=== PATIENT | female | born 1955 | race Caucasian/White ===

== ENCOUNTER 2020-08-18 10:16 | Emergency (ER) | payer OTHER ==
--- OUTSIDE RECORDS SUMMARY | 2020-08-18 11:05 | XMS REPORT | Summary of Care ---
:1955 Author Organization [facility] Address [address] [place] [id number] Care Team Providers Name Role Phone Lulu, Gretchen Trujillo Primary Care Provider Reason for Visit Reason Comments LAB Encounter Details Date Type Department Care Team Description 06/29/2020 Stock Checker Visit [facility] Alda on, Hernan, SALES DEVELOPMENT REPRESENTATIVE [address] [place] [address] [phone] Vitamin D deficiency [facility] Primary Care [address] [phone] Allergies Active Allergy Reactions Severity Noted Date Comments Sertraline (Bulk) Rash 02/26/2020 documented as of this encounter (statuses as of 06/29/2020) Medications Medication Sig Dispensed Refills Start Date End Date Status meloxicam 7.5 mg Take 1 tablet by 30 tablet 0 12/26/2018 Active tabletIndications: mouth daily. Acute pain of left knee PROAIR HFA 90 INHALE 1 TO 2 2 12/07/2018 A ctive mcg/actuation inhaler PUFFS PO Q 4 TO 6 H PRF SHORTNESS OF BREATH OR WHEEZING. FOR RESCUE BREATHING TRELEGY ELLIPTA INHALE 1 PUFF PO 4 01/20/2019 Active 100-62.5-25 mcg DsDv D proMETHazine 25 mg Take 1 tablet by 20 tablet 0 07/16/2019 Active tabletIndications: mouth every 4 Squamous cell lung (four) hours as cancer, right needed for Nausea and Vomiting (N/V). pantoprazole 40 mg EC Take 1 tablet by 90 tablet 0 08/31/2019 Active tabletIndications: mouth daily. Non-small cell cancer of right lung pantoprazole 40 mg EC Take 1 tablet by 90 tablet 0 01/15/2020 Active tabletIndications: mouth daily. Squamous cell lung cancer, right, Gastroesophageal reflux disease, esophagitis presence not specified lidocaine (LIDODERM) 5 Apply 1 Patch to 30 Patch 3 01/18/2020 Active % (700 mg/patch) area(s) daily. patchIndications: Malignant neoplasm of lung, unspecified laterality, unspecified part of lung ondansetron 4 mg Take 1 tablet by 30 tablet 3 01/18/2020 Active disintegrating mouth every 8 tabletIndications: (eight) hours as Malignant neoplasm of needed for Nausea lung, unspecified and Vomiting laterality, (N/V). unspecified part of lung HYDROcodone-acetaminop Take 1 tablet by 60 tablet 0 03/21/2020 Active hen 5-325 mg mouth every 6 tabletIndications: (six) hours as Malignant neoplasm of needed for Pain lung, unspecified (scale 7-10). laterality, unspecified part of lung clonazePAM 2 mg Take 1 tablet by 60 tablet 1 03/21/2020 Active tabletIndications: mouth 2 (two) Generalized anxiety times daily. disorder venlafaxine XR 75 mg Take 1 capsule by 30 capsule 0 04/18/2020 Active 24 hr mouth daily with capsuleIndications: breakfast. 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 Take Severe episode of with Bupropion XL recurrent major 150mg daily depressive disorder, without psychotic features buPROPion XL 150 mg 24 Take 1 tablet by 30 tablet 0 04/18/2020 Active hr tabletIndications: mouth daily. Take Severe episode of with Bupropion XL recurrent major 300mg daily depressive disorder, without psychotic features cyclobenzaprine 5 mg Take 1 tablet by 60 tablet 2 06/29/2020 1 Active tabletIndications: mouth 2 (two) 0 Lumbosacral times daily for spondylosis without 90 days. myelopathy documented as of this encounter (statuses as of 06/29/2020) Active Problems Problem Noted Date Obesity (BMI 30-39.9) 04/08/2019 Non-small cell cancer of right lung 02/17/2019 Other emphysema 02/17/2019 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 Chronic back pain 02/17/2019 documented as of this encounter (statuses as of 06/29/2020) Social History Tobacco Use Types Packs/Day Years Used Date Current Every Day Smoker Smokeless Tobacco: Current User Sex Assigned at Date Recorded Not on file COVID-19 Exposure Response Date Recorded In the last month, have you been in contact with No / Unsure 06/29/2020 12:30 PM CDT someone who was confirmed or suspected to have Coronavirus / COVID-19? documented as of this encounter Last Filed Vital Signs Not on filedocumented in this encounter Nursing Notes Roxanne Tavarez - 06/29/2020 1:00 PM CDT Venipuncture collection performed by clean technique on the right anticubitus. Total of 1 attempts were made. Slight pressure and a bandage/dressing were applied to the site(s). The patient experiencedno complications. The following specimens were processed according to instructions and sent to [facility] laboratories per lab order on : LT BLUE SST 2 RED LAV PPT DK GREEN (LiHep) DK GREEN (SodH) ERAZO DK BLUE (K2) DK BLUE (S) ACD Blood Culture NIPT/NTD documented in this encounter Plan of Treatment Date Type Specialty Care Team Description 07/04/2020 Appointment Radiology Thao Andrews MD [address] [facility] [address] [place] [address] 07/04/2020 Nurse Visit Infusion Therapy 2, [facility] Adult Infusion Nu rse 07/12/2020 Office Visit Oncology Kelley Johnson, DO [address] [place] [address] [phone] 09/28/2020 Office Visit Orthopedic Surgery Hernan Morgan, SALES DEVELOPMENT REPRESENTATIVE [address] [place] [address] [phone] Name Type Priority Associated Diagnoses Date/Ti me BONE SPECIFIC ALK. LAB Routine Vitamin D deficiency 0 06/29/2020 1:02 PM CDT PHOSPHATASE Health Maintenance Due Date Last Done Comments HEPATITIS C (HCV) SCREEN 1955 PNEUMOCOCCAL 0-64 YEARS COMBINED 1962 SERIES (1 of 3 - PCV13) DTaP,Tdap,and Td Vaccines (1 - 1975 Tdap) PAP SMEAR 1977 Breast Cancer Screening 1996 (MAMMOGRAM) COLON CANCER SCREENING ANNUAL 2006 FIT/FOBT COLON CANCER SCREENING FIT DNA 2006 EVERY 3 YEARS COLON CANCER SCREENING 2006 SIGMOIDOSCOPY EVERY 5 YEARS COLONOSCOPY 2006 Colorectal Cancer Screening 2006 Zoster Recombinant Vaccine 2006 (SHINGRIX) (1 of 2) INFLUENZA VACCINE (#1) 2020 08/31/2019 LUNG CANCER SCREEN: Recommended 01/14/2021 01/15/2020, 07/22, for age 55-80 with 30 + pack year 05/17/2019, Ad ditional history history exists Depression Screening 02/24/2021 02/25/2020, 02/25/2020 documented as of this encounter Implants Implanted Type Area Geological Manager Device Shelf Model / Serial Identifier Expiration / Lot Date Kyphon Xpede Bone Cement Bilateral [employer] 1 CX01A / Implanted: Qty: 1 on 05/28/2019 by Albina Lujan MD at [facility] ([facility]) : Back CX01A / [id number] Kyphon Xpede Bone Cement And Mixer Pack Bilateral [employer] [place] CX01B / Implanted: Qty: 1 on 05/28/2019 by Albina Lujan MD at [facility] ([facility]) : Back CX01B / [id number] Kyphon Xpede Bone Cement Bilateral [employer] 1 CX01A / Implanted: Qty: 1 on 05/28/2019 by Albina Lujan MD at [facility] ([facility]) : Back CX01A / [id number] Kyphon Xpede Bone Cement And Mixer Pack Bilateral [employer] [place] CX01B / Implanted: Qty: 1 on 05/28/2019 by Albina Lujan MD at [facility] ([facility]) : Back CX01B / [id number] documented as of this encounter Results Not on filedocumented in this encounter Visit Diagnoses Diagnosis Vitamin D deficiency Unspecified vitamin D deficiency documented in this encounter Insurance Payer Benefit Plan / Subscriber ID Effective Phone Address T e Group Dates [facility] [id number] 2018-[facility] [phone] [address] [employer] [facility] [id number] [place] [address] (Work) [phone] documented as of this encounter
--- OUTSIDE RECORDS SUMMARY | 2020-08-18 11:05 | XMS REPORT | Summary of Care ---
:1955 Author Organization [facility] Address [address] [place] [address] Care Team Providers Name Role Phone Gretchen Lawson Primary Care Provider Encounter Details Date Type Department Care Team Description 06/29/2020 Hospital Encounter [facility] Primary Lukas-Oli on, [facility] Radiol JORDY Castaneda [address] [place] [phone] Allergies Active Allergy Reactions Severity Noted Date Comments Sertraline (Bulk) Rash 02/26/2020 documented as of this encounter (statuses as of 06/30/2020) Medications Medication Sig Dispensed Refills Start Date [...] as of this encounter (statuses as of 06/30/2020) Active Problems Problem Noted Date Obesity (BMI 30-39.9) 04/08/2019 Non-small cell cancer of right lung 02/17/2019 Other emphysema 02/17/2019 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 Chronic back pain 02/17/2019 documented as of this encounter (statuses as of 06/30/2020) Social History Tobacco Use Types Packs/Day Years [...] Signs Not on filedocumented in this encounter Plan of Treatment Date Type Specialty Care Team Description 07/04/2020 Appointment Radiology Thao Andrews MD [address] [facility] [address] [place] [phone] 07/04/2020 Nurse Visit Infusion Therapy 2, [facility] Adult Infusion Nu rse 07/12/2020 Office Visit Oncology Kelley Johnson, [address] [phone] 09/28/2020 Office Visit Orthopedic Surgery Hernan Morgan, JORDY [address] [place] [address] [phone] Name Type Priority Associated Diagnoses Date/Ti me XR SPINE THORACIC 2 [facility] IMAGING Routine Mid back pain 06/2020 1:25 PM CDT XR CERVICAL SPINE 2 [facility] IMAGING Routine Cervicalgia 06/29 1:25 PM CDT Name Type Priority Associated Diagnoses Order S chedule XR SPINE THORACIC 2 [facility] IMAGING Routine Mid back pain ONCE for 1 Occurrences starting 2019 until 06/29/2020 XR CERVICAL SPINE 2 [facility] IMAGING Routine Cervicalgia ONCE for 1 Occurrences starting 2019 until 06/29/2020 Health Maintenance Due Date Last Done Comments [...] of this encounter Implants Implanted Type Area Simulation Engineer Device Shelf Model / Serial Identifier Expiration / Lot Date Kyphon Xpede Bone Cement Bilateral [employer] 1 CX01A / Implanted: Qty: 1 on 05/28/2019 by Albina Lujan MD at [facility] ([facility]) : Back CX01A / [id number] Kyphon Xpede Bone Cement And Mixer Pack Bilateral [employer] [place] CX01B / Implanted: Qty: 1 on 05/28/2019 by Albina Lujan MD at [facility] ([facility]) : Back CX01B / [id number] Kyphon Xpede Bone Cement Bilateral [employer] 1 CX01A / Implanted: Qty: 1 on 05/28/2019 by Albina Lujan MD at [facility] ([facility]) : Back CX01A / [id number] Kyphon Xpede Bone Cement And Mixer Pack Bilateral [employer] [place] CX01B / Implanted: Qty: 1 on 05/28/2019 by Albina Lujan MD at [facility] ([facility]) : Back CX01B / [id number] documented as of this encounter Results Not on filedocumented in this encounter Visit Diagnoses Diagnosis Mid back pain Backache, unspecified Cervicalgia documented in this encounter Insurance Payer Benefit Plan / Subscriber ID Effective Phone Address T ype Group Dates [facility] [id number] 2018-[employer] [phone] [address] [employer] [id number] [place] [address] (Work) [phone] documented as of this encounter
--- OUTSIDE RECORDS SUMMARY | 2020-08-18 11:05 | XMS REPORT | Continuity of Care Document ---
:1955 Author Organization [facility] [employer] Care Team Providers Name Role Phone [facility] Unavailable Un available Problems Problem Status Onset Classification Date Comments Sourc e Date Reported Depressive Active Problem 03/23/2014 NE Prima ry disorder, not Care A ssoc elsewhere classified Anxiety state, Active Problem 03/23/2014 NE P rimary unspecified Care Ass oc Breast Active Diagnosis 03/23/2014 NE Primar y screening Care Assoc Depression Active Diagnosis 03/23/2014 NE Prima ry [facility] Vitamin D Active Diagnosis 03/23/2014 NE Primar y deficiency Care Asso c Bronchitis Active Diagnosis 03/23/2014 NE Prima ry Care Assoc Enthesopathy/te Active Diagnosis 03/23/2014 NE Primary ndinitis/bursit Care Assoc is of unspecified site Pain in joint, Active Diagnosis 03/23/2014 NE P rimary site Care Assoc unspecified Allergic Active Diagnosis 03/23/2014 NE Primar y rhinitis Care Assoc Asthma Active Diagnosis 03/23/2014 [facility] Primar y [facility] Memory loss Active Diagnosis 03/23/2014 NE Prim terrence Care [facility]oc Other abnormal Active Diagnosis 03/23/2014 NE P rimary blood chemistry Care Assoc Encounter for Active Diagnosis 03/23/2014 NE Pr imary long-term Care Assoc (current) use of other medications Tobacco abuse Active Diagnosis 03/23/2014 NE Pr imary Care Assoc Symptomatic Active Diagnosis 03/23/2014 NE Prim terrence menopausal or Care A ssoc female climacteric states Medications Medication Details Route Status Patient Ordering Order Source Instructions Provider Date Flonase 1 spray Nasally Active 50 MCG/ACT Abraham 03/10/ NE in each Nasally twice 2013 Primary nostril a day (bid) Care Assoc Spiriva 1 capsule by mouth Active 18 MCG by Abraham 03/08/ NE HandiHaler mouth once a 2013 Primary day Care Assoc Ergocalciferol 1 capsule by mouth Active 81604 UNIT by Abraham 03/08 / NE mouth once a 2013 Primary month Care Assoc Nasonex 2 sprays Nasally Active 50 MCG/ACT Silvioumgarner NE in each Nasally Once a 2013 Primary nostril day Care Assoc Ergocalciferol 1 capsule by mouth Active 82668 UNIT by Abraham 12/01 / NE mouth every 2013 Primary month Care Assoc Proventil HFA 2 puffs Inhalation Active 108 (90 Base) Abraham WATKINS as needed MCG/ACT Primary Inhalation Care every 4 hrs Assoc prn Ativan 1 tablet by mouth Active 2 MG by mouth Scarletgaremmett NE at three times a Primary bedtime day (tid) as Care needed (prn) Assoc Effexor XR 2 capsule by mouth Active 150 MG by Abraham NE mouth Once a Primary day Care Assoc Flonase 1 spray Nasally Active 50 MCG/DOSE Abraham NE in each Nasally twice Primary nostril a day (bid) Care Assoc Abilify 1 tablet by mouth Active 10 mg by mouth Abraham WATKINS Once a day Primary Care Assoc Allergies, Adverse Reactions, Alerts Substance Category Reaction Severity Reaction Status Date Comments S ource type Reported N.K.D.A. Adverse Info Not Adverse Active NE Reaction Available Reaction 4 Prim terrence Care Assoc Immunizations No Data Provided for This Section Results No Data Provided for This Section Pathology Reports No Data Provided for This Section Diagnostic Reports No Data Provided for This Section Consultation Notes No Data Provided for This Section Discharge Summaries No Data Provided for This Section History and Physicals No Data Provided for This Section Vital Signs Vital Sign Value Date Comments Source Weight 155 03/08/2014 NE Primary [facility] Height 63 03/08/2014 [facility] Temperature Oral (F) 98.1 F 03/08/2014 NE Prim terrence Care [facility]oc Heart Rate 101 03/08/2014 [facility] Diastolic (mm Hg) 79 03/08/2014 [facility] Systolic (mm Hg) 132 03/08/2014 [facility] Encounters Location Location Encounter Encounter Reason Attending ADM DC Stat Source Details Type Number For Provider Date Date Visit [place] Sick Visit [id number] 03/08 03/08 [place] Primary Rt ankle [id number] /2013 Pr imary Care swollen and [id number] [facility], hurting 8f1 Asso c PA x1mth [facility] nasonex not [id number] 03/10 03/10 [place] Primary covered [id number] /2013 Violet mony [facility] [id number] [facility], a48 Assoc [place] nasonex not [id number] 03/10 03/10 [place] Primary covered [id number] Violet sykes [facility] [id number] [facility], 946 Assoc [place] Procedures No Data Provided for This Section Assessment and Plan No Data Provided for This Section Plan of Care No Data Provided for This Section Social History Social History Date Source Social History ElementQualifiersDate Reported 03/08/2014 [facility] Tobacco Use: . Are you a: current smoker, Number of packs per day: 1, Ag e started: March 08, 2014 Do you have pets? . Status: Yes, Type: dog(s), cat(s), bird(s) March 08, 2014 Marital Status: . answer March 08, 2014 Caffeine intake? . Status: Yes, What type: Coffee, Soft Drinks, 1 - 2 cup(s) a day March 08, 2014 Do you exercise? . Answer: No March 08, 2014 Do you drink alcohol? . Status: Yes, Type: Liquor, Socially March 08, 2014 Family History No Data Provided for This Section Advance Directives No Data Provided for This Section Functional Status No Data Provided for This Section
--- OUTSIDE RECORDS SUMMARY | 2020-08-18 11:06 | XMS REPORT | Summary of Care ---
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 PACS/VR/DOSE VITAMIN D, 25-OH (06/29/2020 1:02 PM CDT) Pathologist Sig nature VIT D 25OH 22 (L) 25 - 80 ng/mL [facility] Specimen Blood Narrative Performed At Deficiency: <20 ng/mL [facility] Insufficiency: 20-24 ng/mL Optimal: 25-80 ng/mL Performing Organization Address City/State/Zipcode Phone Number [facility] CLIA: [id number] [place] [address] [place] [address] documented in this encounter Visit Diagnoses Diagnosis Osteoporosis of lumbar spine - Primary Vitamin D deficiency Unspecified vitamin D deficiency Lumbosacral spondylosis without myelopat hy Mid back pain Backache, unspecified Cervicalgia Closed compression fracture of first lum bar vertebra, initial encounter documented in this encounter Insurance Payer Benefit Plan / Subscriber ID Effective Phone Address [employer] Dates HIM [facility] [id number] 2018-Prese [phone] [address] HMO HEALTH CHOICE HEALTH CHOICE nt [phone] [place] [address] (Work) [phone] documented as of this encounter
--- OUTSIDE RECORDS SUMMARY | 2020-08-18 11:06 | XMS REPORT | Summary of Care ---
:1955 Author Organization [facility] Address [address] [place] [address] Care Team Providers Name Role Phone Lulu Gretchen Trujillo Primary Care Provider Reason for Visit Reason Comments Notification Encounter Details Date Type Department Care Team Description 07/01/2020 Telephone [facility] Orthopaedic Ondina , Notification Surgery- [facility] Shi, [facility] 2[address] [facility] 2[address] [place], [place] [address] 2[address]1406 [place], [place] [phone] Allergies Active Allergy Reactions Severity Noted Date [...] Signs Not on filedocumented in this encounter Miscellaneous Notes Telephone Encounter - Denise Brennan LVN - 07/01/2020 2:20 PM CDTLVM low vit D. New rx at pharmacy to be picked up elephone Encounter - Maria Dolores Warner - 07/01/2020 12:28 PM CDTPlease assist with signing off on chart note so Infusion dept can obtain auth for upcoming appointment:07/04 documented in this encounter Plan of Treatment Date Type Specialty Care Team Description 07/04/2020 Appointment Radiology Thao Andrews MD 0[address] [facility] [address] [place] [address] 07/04/2020 Nurse Visit Infusion Therapy 2, [facility] Adult Infusion Nu rse 07/12/2020 Office Visit Oncology Kelley Johnson, DO [address] [place], [place] [phone] 09/28/2020 Office Visit Orthopedic Surgery LukasHernan Dueñas, INSTRUCTIONAL TECHNOLOGY COACH [address] [place] [address] [phone] Health Maintenance Due Date Last Done Comments [...] of this encounter Implants Implanted Type Area Psychodramatist Device Shelf Model / Serial Identifier Expiration / Lot Date Kyphon Xpede Bone Cement Bilateral [employer] [place] 1 CX01A / Implanted: Qty: 1 on 05/28/2019 by Albina Lujan MD at [facility] ([facility]) : Back CX01A / [id number] Kyphon Xpede Bone Cement And Mixer Pack Bilateral [employer] [place] CX01B / Implanted: Qty: 1 on 05/28/2019 by Albina Lujan MD at [facility] ([facility]) : Back CX01B / [id number] Kyphon Xpede Bone Cement Bilateral [employer] [place] 1 CX01A / Implanted: Qty: 1 on 05/28/2019 by Albina Lujan MD at [facility] ([facility]) : Back CX01A / [id number] Kyphon Xpede Bone Cement And Mixer Pack Bilateral [employer] [place] CX01B / Implanted: Qty: 1 on 05/28/2019 by Albina Lujan MD at [facility] ([facility]) : Back CX01B / [id number] documented as of this encounter Results Not on filedocumented in this encounter Insurance Payer Benefit Plan / Subscriber ID Effective Phone Address [employer] Dates HIM [facility] [id number] 2018-Tahir [phone] [address] HMO HEALTH [employer] HEALTH CHOICE [phone] [place] [address] documented as of this encounter
--- OUTSIDE RECORDS SUMMARY | 2020-08-18 11:06 | XMS REPORT | Summary of Care ---
:1955 Author Organization [facility] Address [address] [place] [address] Care Team Providers Name Role Phone Gretchen Lawson Primary Care Provider Reason for Referral (Routine) Status Reason Specialty Diagnoses / Referred By Referred To Procedures Contact Contact New Request Infusion Therapy Diagnoses Vitamin D deficiency Osteoporosis of lumbar spine Closed compression fracture of first lumbar vertebra, initial encounter Lukas-Kunjum Procedures CONSULT/REFERRAL AMB INFUSION THERAPY Preferred location: [place] ([facility] 3rd Floor) on, Shibi, TOOL MAKER BENCH [address] [place] [address] Reason for Visit Reason Comments Follow-up fx. L3 (Routine) Status Reason Specialty Diagnoses / Referred By Referred To Procedures Contact Contact Authorized DENTAL SCHEDULING COORDINATOR-FAMILY / Diagnoses LVM to switch to TeleMed 01/13/2020 @ 1:59pm(SE) 8 month FU Low Back Pain Lukas-Kunjum Lukas-Kunjum Orthopedic Surgery Procedures CONSULT/REFERRAL ORTHOPAEDIC SURGERY [facility] on, Shibi, TOOL MAKER BENCH on, Shibi, TOOL MAKER BENCH [address] [place] [phone] Phone: Fax: Encounter Details Date Type Department Care Team Description 06/29/2020 Office Visit [facility] Lkuas-Kunjumon Osteoporos is of lumbar spine (Primary Dx); Orthopaedic Surgery- , Shibi, FN P Vitamin D deficiency; [place] [address] [facility] Lumbosacral spondylosis with out myelopathy; Primary Care Brittney arcos [place] Mid back pain; [address], [place], [place] Cer neryalgia; [address] [address] Closed compression fracture of first lum bar vertebra, [place] [address] [phone] Allergies Active Allergy Reactions Severity Noted Date [...] and bending. Current medications for pain are De Soto 7.5/325 mg and Mobic which has not been e ffective. Patient has history of non-small cell lung cancer since 2017 and completed chemotherapy and radiation, she is not receiving infusions of Opdivo. She reports she has an appointment with her new oncologist Dr. Low Darden ([phone]) on 02/17/19. 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 No results found for: [id number] No components found for: A1C Constitutional: No [...] is noted at this site. MRI: 12/20/2017: [facility]: Cervical, Thoracic, Lumbar: IMPRESSION: Cervical - Mild cervical spine degenerative changes without other suspicious acute process. Thoracic - No acute process with chronic appearing findings as discussed. Lumbar - Predominantly chronic appearing lumbar spine findings as discussed. Slight retropulsion of bony fragments at L1 is slightly more pronounced than on the prior MRI. 09/10/2017: [facility]: Lumbar: IMPRESSION: Acute compression fracture [...] 07/04/2020 Appointment Radiology Thao Andrews MD 2240 [facility] [address] [place] [phone] 07/04/2020 Nurse Visit Infusion Therapy 2, [facility] Adult Infusion Nu rse 07/12/2020 Office Visit Oncology Kelley Johnson, [address] [place], [place] [phone] 09/28/2020 Office Visit Orthopedic Surgery Hernan Morgan FNP 2[address] [place] [address] [phone] Name Type Priority Associated Diagnoses Date/Ti me [...] of this encounter Implants Implanted Type Area Stock Letterer Device Shelf Model / Serial Identifier Expiration / Lot Date Kyphon Xpede Bone Cement Bilateral [employer] [place] 1 CX01A / Implanted: Qty: 1 on 05/28/2019 by Albina Lujan MD at [facility] ([facility]) : Back CX01A / [id number] Kyphon Xpede Bone Cement And Mixer Pack Bilateral [employer] [place] CX01B / Implanted: Qty: 1 on 05/28/2019 by Albina Lujan MD at [facility] ([facility]) : Back CX01B / [id number] Kyphon Xpede Bone Cement Bilateral [employer] [place] 1 CX01A / Implanted: Qty: 1 on 05/28/2019 by Albina Lujan MD at [facility] ([facility]) : Back CX01A / [id number] Kyphon Xpede Bone Cement And Mixer Pack Bilateral [employer] [place] CX01B / Implanted: Qty: 1 on 05/28/2019 by Albina Lujan MD at [facility] ([facility]) : Back CX01B / [id number] documented as of this encounter Procedures Procedure [...] spine were obtained. COMPARISON: None Procedure Note [facility], Radiant Results Inft User - 2019 [...] overlies t he right ventricle. Procedure Note [facility], Radiant Results Inft User - 2019 [...] overlies the right ventricle. Performing Organization Address City/[facility]/Zipcode Phone Number PACS/VR/DOSE VITAMIN D, 25-OH (06/29/2020 1:02 PM CDT) Pathologist Sig nature VIT D 25OH 22 (L) 25 - 80 ng/mL [facility] Specimen Blood Narrative Performed At Deficiency: <20 ng/mL [facility] Insufficiency: 20-24 ng/mL Optimal: 25-80 ng/mL Performing Organization Address City/State/Zipcode Phone Number [facility] CLIA: [id number] [place] [address] [place] [address] documented in this encounter Visit Diagnoses Diagnosis Osteoporosis of lumbar spine - Primary Vitamin D deficiency Unspecified vitamin D deficiency Lumbosacral spondylosis without myelopat hy Mid back pain Backache, unspecified Cervicalgia Closed compression fracture of first lum bar vertebra, initial encounter documented in this encounter Insurance Payer Benefit Plan / Subscriber ID Effective Phone Address [employer] Dates HIM [facility] [id number] 2018-Prese [phone] HMO HEALTH CHOICE HEALTH CHOICE nt [phone] [place] [address] (Work) [phone] documented as of this encounter
--- OUTSIDE RECORDS SUMMARY | 2020-08-18 11:07 | XMS REPORT | Summary of Care ---
:1955 Author Organization [facility] Address [address] [place] [address] Care Team Providers Name Role Phone Lulu, Gretchennorris Trujillo Primary Care Provider Reason for Visit MRI/CAT Scan (Routine) Status Reason Specialty Diagnoses / Referred By Referred To Procedures Contact Contact Closed Diagnostic Diagnoses Malignant neoplasm of lung, unspecified laterality, unspecified part of lung Darryl, Radiology Procedures CT THORAX W CONTRAST MD Kofi [address] [place] [address] Patric [address] [place] [address] Encounter Details Date Type Department Care Team Description 07/04/2020 Hospital Encounter [facility] Computed Bernie Andrews, Arrived Tom[facility] [facility] [address] [place] [phone] [facility] [address] [place] [phone] Allergies Active Allergy Reactions Severity Noted Date Comments Sertraline (Bulk) Rash 02/26/2020 documented as of this encounter (statuses as of 07/05/2020) Medications Medication Sig Dispensed Refills Start Date [...] as of this encounter (statuses as of 07/05/2020) Active Problems Problem Noted Date Obesity (BMI 30-39.9) 04/08/2019 Non-small cell cancer of right lung 02/17/2019 Other emphysema 02/17/2019 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 documented as of this encounter Last Filed Vital Signs Not on filedocumented in this encounter Plan of Treatment Date Type Specialty Care Team Description 07/12/2020 Nurse Visit Infusion Therapy 3, [facility] Adult Infusion Nu rse 07/12/2020 Office Visit Oncology Kelley Johnson, DO [address] [place] [phone] 09/28/2020 Office Visit Orthopedic Surgery Hernan Morgan, [employer] [address] [place] [address] [phone] Health Maintenance Due Date Last Done Comments [...] of this encounter Implants Implanted Type Area Oyster Cultivator Device Shelf Model / Serial Identifier Expiration / Lot Date Kyphon Xpede Bone Cement Bilateral [employer] [place] 1 CX01A / Implanted: Qty: 1 on 05/28/2019 by Albina Lujan MD at [facility] ([facility]) : Back CX01A / [id number] Kyphon Xpede Bone Cement And Mixer Pack Bilateral [employer] [place] CX01B / Implanted: Qty: 1 on 05/28/2019 by Albina Lujan MD at [facility] ([facility]) : Back CX01B / [id number] Kyphon Xpede Bone Cement Bilateral [employer] [place] 1 CX01A / Implanted: Qty: 1 on 05/28/2019 by Albina Lujan MD at [facility] ([facility]) : Back CX01A / [id number] Kyphon Xpede Bone Cement And Mixer Pack Bilateral [employer] [place] CX01B / Implanted: Qty: 1 on 05/28/2019 by Albina Lujan MD at [facility] ([facility]) : Back CX01B / [id number] documented as of this encounter Procedures Procedure Name Priority Date/Time Associated Diagnosis Comme nts CT THORAX W CONTRAST Routine 07/04/2020 1:10 PM Malignant vincenzo plasm of CDT lung, unspecified laterality, unspecified part of lung Procedure Note - [facility], Radia nt Results Inft User - 07/04/2020 4:27 PM CDT PROCEDURE: CT ANGIO CHEST WITH CONTRAST - PE PROTOCOL CLINICAL INDICATION: NSCLC s urveillance COMPARISON: 01/15/2020. DOSE: 223.8 mGy-cm TECHNIQUE AND FINDINGS: A lical CT scan was performed and reconstructed using 1.25 mm slice thicknes s from the lung bases through the apices after the uncomplicated administra tion of 100 cc of intravenous Omnipaque contrast. Sagittal and coron al reconstructions, and axial maximum intensity projections were generated a nd reviewed to further define anatomy and possible pathology. (DFOV = 40 cm) FINDINGS: LOWER NECK/THYROID: Right hy poattenuating thyroid nodule measures up to 5 mm. Left IJ central venous c atheter tip terminates in the H junction. LUNGS: Fibrotic changes of t he right infrahilar bronchovascular soft tissues is again seen with o pacification extending to the right major fissure and right lower lobe with associated architectural distortion and volume loss, likely related to post radiation changes. Right lower lobe subsegmental atelectasis is noted. Scattered pulmonary nodules are again seen in our described below: 2 mm left upper lobe nodule, stable (2:64). 3 mm right upper lobe nodule , stable (2:87). 4 mm left upper lobe calcifi ed granuloma, stable (2:142). 3 mm left lower lobe nodule, stable (2:177). 3 mm right lower lobe pleura l-based nodule, stable (2:222). PLEURA: No pleural effusion or pneumothorax. CENTRAL AIRWAY: Mild tractio n bronchiectasis in the right lower lobe is unchanged from prior study. Right lower lobe bronchial wall thickening is likely related to posttreatm ent change. MEDIASTINUM: No mediastinal lymphadenopathy. Normal cardiac morphology. No pericardial effusion. AORTA AND GREAT VESSELS: The visualized portions of the aorta are normal in caliber. BONES AND SOFT TISSUES: Mult iple thoracic spine compression deformities involving the T6 vertebral b ashlie with 70% height loss and mild spinal stenosis, T10 and T12 verteb ral body with 90% height loss with mild spinal canal stenosis, unchanged fr om prior imaging. Remote left second, third, and fifth rib fractures. VISUALIZED UPPER ABDOMEN: Un remarkable. IMPRESSION 1. Right lower lobe archite ct distortion, and hilar bronchovascular thickening, and mild bronchi ectasis with associated right lower lobe volume loss likely related to post radiation changes. 2. Stable pulmonary nodules . No new pulmonary nodules are appreciated. 3. Multilevel thoracic spin e compression deformities more prominent at T10 and T12 with mild spinal can al stenosis. 4. Remote left second, thir d, and fifth rib fractures. Preliminary Report Dictated by Resident: Lavon Vizcaino documented in this encounter Results Not on filedocumented in this encounter Administered Medications Medication Order MAR Action Action Date Dose Rate Site iohexol (OMNIPAQUE 350 BULK-100 Given 07/04/2020 1:05 PM CDT 0. 23 mL mL) injection 0.23 mL 0.23 mL (rounded from 0.2286 mL = 80 mg), Intravenous, ONCE, 1 dose, 07/04/20 at 1315, Routine documented in this encounter Insurance Payer Benefit Plan / Subscriber ID Effective Phone Address T e Group Dates [facility] [id number] 2018-Tahir [phone] [address] [employer] [facility] [employer] HEALTH CHOICE [phone] [place] [address] (Work) [phone] documented as of this encounter
--- OUTSIDE RECORDS SUMMARY | 2020-08-18 11:07 | XMS REPORT | Summary of Care ---
:1955 Author Organization [facility] Address [address] [place] [address] Care Team Providers Name Role Phone Gretchen Lawson Primary Care Provider Reason for Visit Reason Comments Infusion Therapy (Routine) Status Reason Specialty Diagnoses / Referred By Referred To Procedures Contact Contact Closed Infusion Therapy Diagnoses Vitamin D deficiency Osteoporosis of lumbar spine Closed compression fracture of first lumbar vertebra, initial encounter Ondina Procedures CONSULT/REFERRAL AMB INFUSION THERAPY Preferred location: [place] ([facility] 3rd Floor) [address] [address] Encounter Details Date Type Department Care Team Description 07/04/2020 Nurse Visit [facility] Infusion Kelley Johnson, DO [address] [place] [address] Osteoporosis of lumbar Therapy- [place] Hernan [address] [address] [phone] spine (Primary Dx) [facility] Clinics 2, [facility] Adult Infusion Nurse [address], [address]rd [place] [address] Allergies Active Allergy Reactions Severity Noted Date Comments Sertraline (Bulk) Rash 02/26/2020 documented as of this encounter (statuses as of 07/04/2020) Medications Medication Sig Dispensed Refills Start Date [...] as of this encounter (statuses as of 07/04/2020) Active Problems Problem Noted Date Obesity (BMI 30-39.9) 04/08/2019 Non-small cell cancer of right lung 02/17/2019 Other emphysema 02/17/2019 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 Chronic back pain 02/17/2019 documented as of this encounter (statuses as of 07/04/2020) Social History Tobacco Use Types Packs/Day Years [...] Sign Reading Time Taken Comments Blood Pressure 154/68 07/04/2020 1:57 PM CDT Pulse 93 07/04/2020 1:57 PM CDT Temperature 36.8 C (98.3 F) 07/04/2020 1:57 PM CDT Respiratory Rate 18 07/04/2020 1:57 PM CDT Oxygen Saturation 97% 07/04/2020 1:57 PM CDT Inhaled Oxygen Concentration - - Weight 78.7 kg (173 lb 8 oz) 07/04/2020 1:57 PM CDT Height - - Body Mass Index 46.9 06/29/2020 12:31 PM CDT documented in this encounter Progress Notes Malgorzata Stephenson RN - 07/04/2020 2:00 PM CDTPt arrived for reclast today but noted to have had CT with contrast just prior to arriving. [facility] 1 [facility] for kidney protection. Pt agreeable to plan and wants appointment on same-day as her oncology appointment next week. Pt reports port-a-cath that has not hadmaintenance since last June. Will get port flush next visit with Reclast. Sharyn zhou MA - 07/04/2020 2:00 PM CDTAbeba Perez is a 64 year old female Vitals performed and BP elevated. Documented and reported to RN. Level of pain 7 reported to RN. documented in this encounter Plan of Treatment Date Type Specialty Care Team Description 07/12/2020 Nurse Visit Infusion Therapy 3, [facility] Adult Infusion Nu rse 07/12/2020 Office Visit Oncology Kelley Johnson, [address] [phone] 09/28/2020 Office Visit Orthopedic Surgery Hernan Morgan, JORDY [address] [place] [address] [phone] Health Maintenance Due Date Last Done Comments [...] of this encounter Implants Implanted Type Area Lead Producer Device Shelf Model / Serial Identifier Expiration / Lot Date Kyphon Xpede Bone Cement Bilateral [employer] [place] 1 CX01A / Implanted: Qty: 1 on 05/28/2019 by Albina Lujan MD at [facility] ([facility]) : Back CX01A / [id number] Kyphon Xpede Bone Cement And Mixer Pack Bilateral [employer] [place] CX01B / Implanted: Qty: 1 on 05/28/2019 by Albina Lujan MD at [facility] ([facility]) : Back CX01B / [id number] Kyphon Xpede Bone Cement Bilateral [employer] [place] 1 CX01A / Implanted: Qty: 1 on 05/28/2019 by Albina Lujan MD at [facility] ([facility]) : Back CX01A / [id number] Kyphon Xpede Bone Cement And Mixer Pack Bilateral [employer] [place] CX01B / Implanted: Qty: 1 on 05/28/2019 by Albina Lujan MD at [facility] ([facility]) : Back CX01B / [id number] documented as of this encounter Results Not on filedocumented in this encounter Visit Diagnoses Diagnosis Osteoporosis of lumbar spine - Primary documented in this encounter Insurance Payer Benefit Plan / Subscriber ID Effective Phone Address T ype Group Dates [facility] [id number] 2018-Tahir [phone] [employer] HEALTH CHOICE [phone] [place] [address] (Work) [phone] documented as of this encounter
--- OUTSIDE RECORDS SUMMARY | 2020-08-18 11:07 | XMS REPORT | Summary of Care ---
:1955 Author Organization [facility] Address [address] [place] [address] Care Team Providers Name Role Phone Gretchen Lawson Primary Care Provider Reason for Referral (Routine) Status Reason Specialty Diagnoses / Referred By Referred To Procedures Contact Contact Closed Infusion Therapy Diagnoses Vitamin D deficiency Osteoporosis of lumbar spine Closed compression fracture of first lumbar vertebra, initial encounter Ondnia Procedures CONSULT/REFERRAL AMB INFUSION THERAPY Preferred location: [place] ([facility] 3rd Floor) , Shibi, CLINICAL REGISTERED NURSE [address] [place] [address] Reason for Visit Reason Comments Follow-up fx. L3 (Routine) Status Reason Specialty Diagnoses / Referred By Referred To Procedures Contact Contact Authorized EVENT STAFF MEMBER-FAMILY / Diagnoses LVM to switch to TeleMed 01/13/2020 @ 1:59pm(SE) 8 month FU Low Back Pain Lukas-Kunjum Lukas-Kunjum Orthopedic Surgery Procedures CONSULT/REFERRAL ORTHOPAEDIC SURGERY TELEHE[facility] ALTERNATIVE on, Shibi, CLINICAL REGISTERED NURSE on, Shibi, CLINICAL REGISTERED NURSE [address] [address] Phone: Fax: Encounter Details Date Type Department Care Team Description 06/29/2020 Office Visit [facility] Lukas-Gallito Osteoporos is of lumbar spine (Primary Dx); Orthopaedic Surgery- , Shibi, FN P Vitamin D deficiency; [address] Lumbosacral spondylosis with out myelopathy; Primary Care Brittney arcos [facility] Mid back pain; [address], [place], [place] Cer neryalgia; [address] [address] Closed compression fracture of first lum bar vertebra, [place] [address] [phone] Allergies Active Allergy Reactions Severity Noted Date Comments Sertraline (Bulk) Rash 02/26/2020 documented as of this encounter (statuses as of 07/07/2020) Medications Medication Sig Dispensed Refills Start Date [...] as of this encounter (statuses as of 07/07/2020) Active Problems Problem Noted Date Obesity (BMI 30-39.9) 04/08/2019 Non-small cell cancer of right lung 02/17/2019 Other emphysema 02/17/2019 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 Current medications for pain are [place] 7.5/325 mg and Mobic which has not been e ffective. Patient has history of non-small cell lung cancer since 2017 and completed chemotherapy and radiation, she is not receiving infusions of Opdivo. She reports she has an appointment with her new oncologist Dr. Low Darden ([phone]) on 02/17/19. 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 No results found for: [id number] No components found for: A1C Constitutional: No [...] is noted at this site. MRI: 12/20/2017: [facility]: Cervical, Thoracic, Lumbar: IMPRESSION: Cervical - Mild cervical spine degenerative changes without other suspicious acute process. Thoracic - No acute process with chronic appearing findings as discussed. Lumbar - Predominantly chronic appearing lumbar spine findings as discussed. Slight retropulsion of bony fragments at L1 is slightly more pronounced than on the prior MRI. 09/10/2017: [facility]: Lumbar: IMPRESSION: Acute compression fracture of T [...] blood work. JORDY Sierra. Orthopedics surgery. Denise Gibbs LVN - 06/29/2020 12:45 PM CDTFollow up back/bone health. 04/29 english documented in this encounter Plan of Treatment Date Type Specialty Care Team Description 07/12/2020 Nurse Visit Infusion Therapy 3, [facility] Adult Infusion Nu rse 07/12/2020 Office Visit Oncology Kelley Johnson, [address] [phone] 09/28/2020 Office Visit Orthopedic Surgery Hernan Morgan FNP [address] [place] [address] [phone] Health Maintenance Due Date Last Done Comments [...] of 2) INFLUENZA VACCINE (#1) 2020 08/31/2019 Depression Screening 02/24/2021 02/25/2020, 02/25/2020 LUNG CANCER SCREEN: Recommended 07/04/2021 07/04/2020, 12/20, for age 55-80 with 30 + pack year 2019, Ad ditional history history exists documented as of this encounter Implants Implanted Type Area Wirer Street Light Device Shelf Model / Serial Identifier Expiration / Lot Date Kyphon Xpede Bone Cement Bilateral [employer] [place] 1 CX01A / Implanted: Qty: 1 on 05/28/2019 by Albina Lujan MD at [facility] ([facility]) : Back CX01A / [id number] Kyphon Xpede Bone Cement And Mixer Pack Bilateral [employer] [place] CX01B / Implanted: Qty: 1 on 05/28/2019 by Albina Lujan MD at [facility] ([facility]) : Back CX01B / [id number] Kyphon Xpede Bone Cement Bilateral [employer] [place] 1 CX01A / Implanted: Qty: 1 on 05/28/2019 by Albina Lujan MD at [facility] ([facility]) : Back CX01A / [id number] Kyphon Xpede Bone Cement And Mixer Pack Bilateral [employer] [place] CX01B / Implanted: Qty: 1 on 05/28/2019 by Albina Lujan MD at [facility] ([facility]) : Back CX01B / [id number] documented as of this encounter Procedures Procedure [...] spine were obtained. COMPARISON: None Procedure Note [facility], Radiant Results Inft User - 2019 4:57 [...] overlies t he right ventricle. Procedure Note [facility], Radiant Results Inft User - 2019 3:25 [...] overlies the right ventricle. Performing Organization Address City/[facility]/Zipcode Phone Number PACS/VR/DOSE BONE SPECIFIC ALK. PHOSPHATASE (06/29/2020 1:02 PM CDT) Pathologist Sig [employer] BONE,SP ALKP 10.5 ug/L AR Comment: INTERPRETIVE INFORMATION: Bone Specific Alkaline Phosp hatase Premenopausal Female: 4.5 - 16.9 ug/L Postmenopausal Female: 7.0 - 22.4 ug/L INTERPRETIVE INFORMATION: Bone Specific Alkaline Phosp hatase Liver alkaline phosphatase can affect the measurement of bone specific alkaline phosphatase in this assay. Each 100 U/L of liver alkaline phosphatase contributes an additional 2.5 to 5.8 ug/L to the bone specific alkaline phosphatase result. Performed By: [facility] [address] [place] [address] Shift Coordinator: Kaley Martínez MD Specimen Blood Performing Organization Address [facility] Phone Number [facility] [address] [place] [address] VITAMIN D, 25-OH (06/29/2020 1:02 PM CDT) Pathologist Sig [employer] VIT D 25OH 22 (L) 25 - 80 ng/mL [facility] Specimen Blood Narrative Performed At Deficiency: <20 ng/mL [facility] Insufficiency: 20-24 ng/mL Optimal: 25-80 ng/mL Performing Organization Address City/[facility] Phone Number [facility] CLIA: [id number] [place] [address] [place], [place] [address]vd documented in this encounter Visit Diagnoses Diagnosis Osteoporosis of lumbar spine - Primary Vitamin D deficiency Unspecified vitamin D deficiency Lumbosacral spondylosis without myelopat hy Mid back pain Backache, unspecified Cervicalgia Closed compression fracture of first lum bar vertebra, initial encounter documented in this encounter Insurance Payer Benefit Plan / Subscriber ID Effective Phone Address T nando Group Dates HIM [facility] [id number] 2018-Tahir [phone] [address] [employer] nt 86 [phone] [place] [address] (Work) [phone] documented as of this encounter
--- OUTSIDE RECORDS SUMMARY | 2020-08-18 11:08 | XMS REPORT | Summary of Care ---
:1955 Author Organization [facility] Address [address] [place] [address] Care Team Providers Name Role Phone Gretchen Lawson Primary Care Provider Reason for Referral MRI/CAT Scan (IRLANDA) Status Reason Specialty Diagnoses / Referred By Referred To Procedures Contact Contact New Request Diagnostic Diagnoses Non-small cell cancer of right lung James Nieves, Radiology Procedures CT ABDOMEN PELVIS W CONTRAST [address] [place] [address] Reason for Visit Reason Comments Orders Encounter Details Date Type Department Care Team Description 07/11/2020 Case Management [facility] Ryangenoveva Kelley Orders Hematology-Oncology - Alex Betancur [address] [place] [address] Enrique pisano [facility], [address] [address] [place] [address] Allergies Active Allergy Reactions Severity Noted Date Comments Sertraline (Bulk) Rash 02/26/2020 documented as of this encounter (statuses as of 07/11/2020) Medications Medication Sig Dispensed Refills Start Date [...] as of this encounter (statuses as of 07/11/2020) Active Problems Problem Noted Date Obesity (BMI 30-39.9) 04/08/2019 Non-small cell cancer of right lung 02/17/2019 Other emphysema 02/17/2019 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 Chronic back pain 02/17/2019 documented as of this encounter (statuses as of 07/11/2020) Social History Tobacco Use Types Packs/Day Years [...] Treatment Date Type Specialty Care Team Description 09/28/2020 Office Visit Orthopedic Surgery Hernan Morgan, PRINT INSPECTOR [address] [place] [address] [phone] Name Type Priority Associated Diagnoses Order S chedule CT ABDOMEN PELVIS W IMAGING IRLANDA Non-small cell cancer Expected: 07/11/2020, CONTRAST of right lung Expires: 07/11 CREATININE LAB Routine Non-small cell cancer Expect ed: 07/11/2020, of right lung Expires: 07/11 Health Maintenance Due Date Last Done Comments [...] of this encounter Implants Implanted Type Area Patcher Device Shelf Model / Serial Identifier Expiration / Lot Date Kyphon Xpede Bone Cement Bilateral [employer] [place] 1 CX01A / Implanted: Qty: 1 on 05/28/2019 by Albina Lujan MD at [facility] ([facility]) : Back CX01A / [id number] Kyphon Xpede Bone Cement And Mixer Pack Bilateral [employer] [place] CX01B / Implanted: Qty: 1 on 05/28/2019 by Albina Lujan MD at [facility] ([facility]) : Back CX01B / [id number] Kyphon Xpede Bone Cement Bilateral [employer] [place] 1 CX01A / Implanted: Qty: 1 on 05/28/2019 by Albina Lujan MD at [facility] ([facility]) : Back CX01A / [id number] Kyphon Xpede Bone Cement And Mixer Pack Bilateral [employer] [place] CX01B / Implanted: Qty: 1 on 05/28/2019 by Albina Lujan MD at [facility] ([facility]) : Back CX01B / [id number] documented as of this encounter Results Not on filedocumented in this encounter Visit Diagnoses Diagnosis Non-small cell cancer of right lung - Pr imary documented in this encounter Insurance Payer Benefit Plan / Subscriber ID Effective Phone Address T ype Group Dates [facility] [id number] 2018-Tahir [phone] [address] [employer] HEALTH CHOICE nt 86 [phone] [place] [address] documented as of this encounter
--- OUTSIDE RECORDS SUMMARY | 2020-08-18 11:08 | XMS REPORT | Summary of Care ---
:1955 Author Organization [facility] Address [address] [place] [address] Care Team Providers Name Role Phone Lulu Gretchen Trujillo Primary Care Provider Reason for Visit Reason Comments Notification Encounter Details Date Type Department Care Team Description 07/01/2020 Telephone [facility] Orthopaedic Ondina , Notification Surgery- [facility] Shi, [facility] [address] [facility] [address] [place], [place] [phone] [place], [place] [address] Allergies Active Allergy Reactions Severity Noted Date [...] Telephone Encounter - Denise Brennan LVN - 07/07/2020 9:46 AM CDTUnable to contact patient. Verified per pharmacy has picked up vit [id number] signed by Denise Brennan LVN at 07/07/2020 9:46 AM CDTTelephone Encounter - Denise Brennan LVN - 07/01/2020 2:20 PM CDTLVM low vit D. New rx at pharmacy to be picked up elephone Encounter - Maria Dolores Warner - 07/01/2020 12:28 PM CDT Please assist with signing off on chart note so Infusion dept can obtain auth for upcoming appointment:07/04 documented in this encounter Plan of Treatment Date Type Specialty Care Team Description 07/12/2020 Nurse Visit Infusion Therapy 3, [facility] Adult Infusion Nu rse 07/12/2020 Office Visit Oncology Kelley Johnson, DO [address] [place] [address] [address] [place], [place] [phone] 09/28/2020 Office Visit Orthopedic Surgery LukasAnitaSunshine powellHernan, TRANSIT VEHICLE INSPECTOR [address] [facility] [place] [address] [phone] Health Maintenance Due Date Last Done Comments [...] of this encounter Implants Implanted Type Area Shoeblack Device Shelf Model / Serial Identifier Expiration / Lot Date Kyphon Xpede Bone Cement Bilateral [employer] [place] 1 CX01A / Implanted: Qty: 1 on 05/28/2019 by Albina Lujan MD at [facility] ([facility]) : Back CX01A / [id number] Kyphon Xpede Bone Cement And Mixer Pack Bilateral [employer] [place] CX01B / Implanted: Qty: 1 on 05/28/2019 by Albina Lujan MD at [facility] ([facility]) : Back CX01B / [id number] Kyphon Xpede Bone Cement Bilateral [employer] [place] 1 CX01A / Implanted: Qty: 1 on 05/28/2019 by Albina Lujan MD at [facility] ([facility]) : Back CX01A / [id number] Kyphon Xpede Bone Cement And Mixer Pack Bilateral [employer] [place] CX01B / Implanted: Qty: 1 on 05/28/2019 by Albina Lujan MD at [facility] ([facility]) : Back CX01B / [id number] documented as of this encounter Results Not on filedocumented in this encounter Insurance Payer Benefit Plan / Subscriber ID Effective Phone Address T e Group Dates HIM [facility] [id number] 2018-Tahir [phone] [address] HMO HEALTH [employer]ed [employer] CHOICE [phone] [place] [address] documented as of this encounter
--- OUTSIDE RECORDS SUMMARY | 2020-08-18 11:08 | XMS REPORT | Summary of Care ---
:1955 Author Organization [facility] Address [address] [place] [address] Care Team Providers Name Role Phone Gretchen Lawson Primary Care Provider Reason for Visit Reason Comments Refill Request Encounter Details Date Type Department Care Team Description 07/01/2020 Refill [facility] Orthopaedic Lukas-Gallito , Refill Request Surgery- [place] JORDY [facility] Pavilio n [address] [place] [address], [place] [id number] [address] [place], [place] [address] [phone] Allergies Active Allergy Reactions Severity Noted Date Comments Sertraline (Bulk) Rash 02/26/2020 documented as of this encounter (statuses as of 07/14/2020) Medications Medication Sig Dispensed Refills Start End Date Status Date meloxicam 7.5 mg Take 1 tablet 30 tablet 0 Active tabletIndications: by mouth daily. 9 Acute pain of left knee PROAIR HFA 90 INHALE 1 TO 2 2 Ac tive mcg/actuation inhaler PUFFS PO Q 4 TO 9 6 H PRF SHORTNESS OF BREATH OR WHEEZING. FOR RESCUE BREATHING TRELEGY ELLIPTA INHALE 1 PUFF 4 Active 100-62.5-25 mcg DsDv PO D 9 proMETHazine 25 mg Take 1 tablet 20 tablet 0 Active tabletIndications: by mouth every 9 Squamous cell lung 4 (four) hours cancer, right as needed for Nausea and Vomiting (N/V). pantoprazole 40 mg EC Take 1 tablet 90 tablet 0 Active tabletIndications: by mouth daily. 9 Non-small cell cancer of right lung pantoprazole 40 mg EC Take 1 tablet 90 tablet 0 Active tabletIndications: by mouth daily. 0 Squamous cell lung cancer, right, Gastroesophageal reflux disease, esophagitis presence not specified lidocaine (LIDODERM) Apply 1 Patch 30 Patch 3 Active 5 % (700 mg/patch) to area(s) 0 patchIndications: daily. Malignant neoplasm of lung, unspecified laterality, unspecified part of lung ondansetron 4 mg Take 1 tablet 30 tablet 3 Active disintegrating by mouth every 0 tabletIndications: 8 (eight) hours Malignant neoplasm of as needed for lung, unspecified Nausea and laterality, Vomiting (N/V). unspecified part of lung HYDROcodone-acetamino Take 1 tablet 60 tablet 0 Active phen 5-325 mg by mouth every 0 tabletIndications: 6 (six) hours Malignant neoplasm of as needed for lung, unspecified Pain (scale laterality, 7-10). unspecified part of lung clonazePAM 2 mg Take 1 tablet 60 tablet 1 Active tabletIndications: by mouth 2 0 Generalized anxiety (two) times disorder daily. venlafaxine XR 75 mg Take 1 capsule 30 capsule 0 Active 24 hr by mouth daily 0 capsuleIndications: with breakfast. 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 0 tabletIndications: Take with Severe episode of Bupropion XL recurrent major 150mg daily depressive disorder, without psychotic features buPROPion XL 150 mg Take 1 tablet 30 tablet 0 Active 24 hr by mouth daily. 0 tabletIndications: Take with Severe episode of Bupropion XL recurrent major 300mg daily depressive disorder, without psychotic features cyclobenzaprine 5 mg Take 1 tablet 60 tablet 2 09/27 Active tabletIndications: by mouth 2 0 20 Lumbosacral (two) times spondylosis without daily for 90 myelopathy days. ERGOCALCIFEROL, TAKE 1 CAPSULE 8 capsule 0 09/02/20 Active VITAMIN D2, 1,250 mcg BY MOUTH WEEKLY 0 20 (50,000 unit) FOR 8 DOSES capsuleIndications: Vitamin D deficiency ergocalciferol, Take 1 capsule 8 capsule 0 07/14/20 Discontinued vitamin d2, 1,250 mcg by mouth weekly 0 20 (50,000 unit) for 8 doses. capsuleIndications: Vitamin D deficiency documented as of this encounter (statuses as of 07/14/2020) Active Problems Problem Noted Date Obesity (BMI 30-39.9) 04/08/2019 Non-small cell cancer of right lung 02/17/2019 Other emphysema 02/17/2019 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 Chronic back pain 02/17/2019 documented as of this encounter (statuses as of 07/14/2020) Social History Tobacco Use Types Packs/Day Years [...] Treatment Date Type Specialty Care Team Description 07/29/2020 Nurse Visit Infusion Therapy 2, [facility] Adult Infusion Nu rse 07/29/2020 Appointment Radiology James Nieves MD [address] [place] [address] 555 08/09/2020 Office Visit Oncology Kelley Johnson DO [address] [place] [address] [phone] 09/28/2020 Office Visit Orthopedic Surgery Hernan Morgan, FAUCET POLISHER [address] [place] [address] [phone] Health Maintenance Due Date Last Done Comments [...] of this encounter Implants Implanted Type Area Automatic Mold Sander Device Shelf Model / Serial Identifier Expiration / Lot Date Kyphon Xpede Bone Cement Bilateral [employer] [place] 1 CX01A / Implanted: Qty: 1 on 05/28/2019 by Albina Lujan MD at [facility] ([facility]) : Back CX01A / [id number] Kyphon Xpede Bone Cement And Mixer Pack Bilateral [employer] [place] CX01B / Implanted: Qty: 1 on 05/28/2019 by Albina Lujan MD at [facility] ([facility]) : Back CX01B / [id number] Kyphon Xpede Bone Cement Bilateral [employer] [place] 1 CX01A / Implanted: Qty: 1 on 05/28/2019 by Albina Lujan MD at [facility] ([facility]) : Back CX01A / [id number] Kyphon Xpede Bone Cement And Mixer Pack Bilateral [employer] [place] CX01B / Implanted: Qty: 1 on 05/28/2019 by Albina Lujan MD at [facility] ([facility]) : Back CX01B / [id number] documented as of this encounter Results Not on filedocumented in this encounter Visit Diagnoses Diagnosis Vitamin D deficiency Unspecified vitamin D deficiency documented in this encounter Insurance Payer Benefit Plan / Subscriber ID Effective Phone Address T norris Group Dates HIM [facility] [place] [place] [id number] 2018-Tahir [phone] [address] O [employer] [facility] nt 86 [phone] [place] [address] documented as of this encounter
--- OUTSIDE RECORDS SUMMARY | 2020-08-18 11:08 | XMS REPORT | Summary of Care ---
:1955 Author Organization [facility] Address [address] [place] [address] Care Team Providers Name Role Phone Lulu, Gretchen Trujillo Primary Care Provider Reason for Visit Reason Comments Refill Request Encounter Details Date Type Department Care Team Description 08/03/2020 Telephone [facility] LukasGallito , Refill Request Surgery- [facility], [facility] [address] [facility] [address] [place], [place] [phone] [facility] [phone] [place] [address] [phone] Allergies Active Allergy Reactions Severity Noted Date Comments Sertraline (Bulk) Rash 02/26/2020 documented as of this encounter (statuses as of 08/04/2020) Medications Medication Sig Dispensed Refills Start Date [...] daily for spondylosis without 90 days. myelopathy ERGOCALCIFEROL, TAKE 1 CAPSULE BY 8 capsule 0 07/14/202009/02 Active VITAMIN D2, 1,250 mcg MOUTH WEEKLY FOR 0 (50,000 unit) 8 DOSES capsuleIndications: Vitamin D deficiency documented as of this encounter (statuses as of 08/04/2020) Active Problems Problem Noted Date Obesity (BMI 30-39.9) 04/08/2019 Non-small cell cancer of right lung 02/17/2019 Other emphysema 02/17/2019 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 Chronic back pain 02/17/2019 documented as of this encounter (statuses as of 08/04/2020) Social History Tobacco Use Types Packs/Day Years [...] Telephone Encounter - Denise Brennan LVN - [facility] elephone Encounter - Maria Dolores Warner - 08/03/2020 2:12 PM CDT Patient called to ask this medication refill can be changed to another pharmacy: cyclobenzaprine 5 mg tablet 60 tablet 2 06/29/2020 09/27/2020 Change to: Matter and Form [id number] [address] AT [facility]; [facility] documented in this encounter Plan of Treatment Date Type Specialty Care Team Description 08/17/2020 Appointment Radiology James Nieves MD [address] [place], [place] [phone] 08/23/2020 Office Visit Oncology Kelley Johnson [facility] [address] [place], [place] [phone] 09/28/2020 Office Visit Orthopedic Surgery Lukas-Hernan Aguilar, [facility] [employer] [address] [place] [address] [phone] Health Maintenance Due Date Last Done Comments [...] of this encounter Implants Implanted Type Area [employer] Worker Device Shelf Model / Serial Identifier Expiration / Lot Date [employer] Bone [employer]ement Bilateral [employer] 1 CX01A / Implanted: Qty: 1 on 05/28/2019 by Albina Lujan MD at [facility] ([facility]) : Back CX01A / [id number] [employer] Bone Cement And Mixer Pack Bilateral [employer] CX01B / Implanted: Qty: 1 on 05/28/2019 by Albina Lujan MD at [facility] ([facility]) : Back CX01B / [id number] [employer]ement Bilateral [employer] 1 CX01A / Implanted: Qty: 1 on 05/28/2019 by Albina Lujan MD at [facility] ([facility]) : Back CX01A / [id number] [employer] Bone Cement And Mixer Pack Bilateral [employer] CX01B / Implanted: Qty: 1 on 05/28/2019 by Albina Lujan MD at [facility] ([facility]) : Back CX01B / [id number] documented as of this encounter Results Not on filedocumented in this encounter Insurance Payer Benefit Plan / Subscriber ID Effective Phone Address [facility] Dates HIM [facility] [id number] 2018-Tahir [phone] [address] [facility] [employer] HEALTH CHOICE [id number] [place] [address] documented as of this encounter
--- OUTSIDE RECORDS SUMMARY | 2020-08-18 11:11 | XMS REPORT | Continuity of Care Document ---
:1955 Author Organization [facility] t Address [address] [place] [address] Care Team Providers Name Role Phone Alex SANCHEZ Primary Care Physician Unavailable Ondina SPENCE Attending Clinician Gypsy Johnson DO Attending Clinician ROSA Attending Clinician Unavailable AKBANI, - Attending Clinician Unavailable ROSA Admitting Clinician Unavailable AKBANI, - Admitting Clinician Unavailable Problems Condition Condition Condition Status Onset Resolution Last Treating Co mments Source Name Details Category Date Date Treatment Clinician Date Depressive Problem Active 2014-03-23 M emoria disorder, 02:49:47 l not Marcelino elsewhere Depressive classified disorder, not elsewhere classified Active Problem 03/23/2014 [facility] Anxiety Problem Active 2014-03-23 Farshad laura state, 02:49:47 l unspecifie Anxiety Her sosa d state, unspecifie d Active Problem 03/23/2014 [facility] Breast Diagnosis Active 2014-03-23 Mem oria screening 02:49:47 l Breast [place] screening Active Diagnosis 03/23/2014 [facility] Vitamin D Diagnosis Active 2014-03-23 Memoria deficiency 02:49:47 l Vitamin Marcelino D deficiency Active Diagnosis 03/23/2014 [facility] Bronchitis Diagnosis Active 2014-03-23 Memoria 02:49:47 l [place] Bronchitis Active Diagnosis 03/23/2014 [facility] Enthesopat Diagnosis Active 2014-03-23 Memoria hy/tendini 02:49:47 l tis/bursit Aron n is of Enthesopat unspecifie hy/tendini d site tis/bursit is of unspecifie d site Active Diagnosis 03/23/2014 [facility] Pain in Diagnosis Active 2014-03-23 Me moria joint, 02:49:47 l site Pain in Marcelino unspecifie joint, d site unspecifie d Active Diagnosis 03/23/2014 [facility] Allergic Diagnosis Active 2014-03-23 M emoria rhinitis 02:49:47 l Allergic Aron n rhinitis Active Diagnosis 03/23/2014 [facility] Asthma Diagnosis Active 2014-03-23 Mem oria 02:49:47 l Asthma Marcelino Active Diagnosis 03/23/2014 [facility] Memory Diagnosis Active 2014-03-23 Mem oria loss 02:49:47 l Memory Marcelino loss Active Diagnosis 03/23/2014 [facility] Other Diagnosis Active 2014-03-23 Mem oria abnormal 02:49:47 l blood Other Marcelino chemistry abnormal blood chemistry Active Diagnosis 03/23/2014 [facility] Encounter Diagnosis Active 2014-03-23 Memoria for 02:49:47 l long-term [place] (current) Encounter use of for other long-term medication (current) s use of other medication s Active Diagnosis 03/23/2014 [facility] Tobacco Diagnosis Active 2014-03-23 Me moria abuse 02:49:47 l Tobacco Marcelino abuse Active Diagnosis 03/23/2014 [facility] Symptomati Diagnosis Active 2014-03-23 Memoria c 02:49:47 l menopausal Aron n or female Symptomati climacteri c c states menopausal or female climacteri c states Active Diagnosis 03/23/2014 [facility] Allergies, Adverse Reactions, Alerts Allergy Allergy Status Severity Reaction(s) Onset Inactive Treating Comm ents Source Name Type Date Date Clinician N.K.D.A. N.K.D.A. Active Info Not Farshad laura Available 5-19 l 00:00: [place] 00 Social History Social Habit Start Date Stop Date Quantity Comments Source TobaccoUse: 2014-03-08 00:00:00 2014-03-08 Farshad rial Marcelino 00:00:00 Medications Ordered Filled Start Stop Current Ordering Indication Dosage Frequency Signature Comments Components Source Medication Medication Date Date Medication? Clinician (SIG) Name Name Elvis Yes Adri 2 puffs as Memoria HFA 6-03 [place] needed l 02:49: [place] 47 Ativan Yes Adri 1 tablet Farshad laura 6-03 [place] at bedtime l 02:49: [place] 47 Effexor XR Yes Adri 2 capsule Memoria 6-03 [place] l 02:49: [place] 47 Abilify Yes Adri 1 tablet Mem oria 6-03 [place] l 02:49: [place] 47 Flonase Yes Adri 1 spray in M emoria 5-22 [place] each l 04:10: nostril [place] 04 Flonase Yes Adri 1 spray in M emoria 5-21 [place] each l 00:00: nostril [place] 00 Spiriva Yes Adri 1 capsule Me moria HandiHaler 5-19 [place] l 00:00: [place] 00 Ergocalcife Yes Adri 1 capsule Memoria rol 5-19 [place] l 00:00: [place] 00 Nasonex Yes Adri 2 sprays Mem oria 5-19 [place] in each l 00:00: nostril [place] 00 Ergocalcife 0 Yes Adri 1 capsule Memoria rol 2-11 [place] l 00:00: [place] 00 Vital Signs Vital Name Observation Time Observation Value Comments Source Weight 2014-03-08 14:15:00 [facility] [place] Height 2014-03-08 [facility] Temperature Oral (F) 2014-03-08 14:15:00 98.1 F [facility] [place] Heart Rate 2014-03-08 14:15:00 [facility] Diastolic (mm Hg) 2014-03-08 [facility] [place] Systolic (mm Hg) 2014-03-08 14:15:00 Farshad rial [place] Procedures This patient has no known procedures. Encounters Start End Encounter Admission Attending Care Care Encounter Source Date/Time Date/Time Type Type Clinicians Facility Department ID 2020-08-03 2020-08-03 [facility] [id number] 00:00:00 00:00:00 njumon, SPECIALTY [id number] [facility] [id number] CENTER AT [phone] YVONNE Jeter [facility] 2020-07-11 2020-07-11 Case HYUN Johnson [id number] 00:00:00 00:00:00 Management Kelley H [id number] [facility] [id number] 2020-07-01 2020-07-01 Telephone [facility] [id number] 00:00:00 00:00:00 njumon, SPECIALTY [id number] [facility] [id number] CENTER AT [id number] YVONNE Jeter [facility] 2020-07-01 2020-07-01 Refill [facility] [id number] 00:00:00 00:00:00 njumon, PRIMARY [id number] [facility] [id number] [place] [id number] 2018-02-17 2018-02-17 Outpatient C [facility] [id number] Medical 15:31:00 15:31:00 [facility] 2018-02-14 2018-02-14 Outpatient C [facility] MED [id number] Medical 08:11:00 08:11:00 [facility] 2018-01-20 2018-01-20 Outpatient C [facility] [id number] Medical 15:31:00 15:31:00 [facility] 2017-08-21 2017-08-21 Outpatient 3 BETH LEE [id number] [facility] 06:52:00 06:52:00 [facility] [facility] 2017-07-22 2017-07-22 Outpatient 3 BETH THOMPSON [id number] [facility] 11:05:00 11:05:00 [facility] [facility] 2017-06-27 2017-06-27 Outpatient 3 EBTH LEE OOS [id number] [facility] 14:00:00 14:00:00 [facility] 2017-06-23 2017-06-23 Emergency E [facility] MED [id number] Medical 14:32:00 14:32:00 [facility] 2017-06-10 2017-06-20 Outpatient 3 BETH THOMPSONOS [id number] [facility] 13:26:00 15:38:00 [facility] 2017-05-20 2017-05-20 Outpatient 3 BETH THOMPSONOS [id number] [facility] 10:01:00 13:56:00 [facility] 2017-04-08 2017-04-08 Outpatient 3 BETH THOMPSONOS [id number] [facility] 09:41:00 09:41:00 [facility] 2017-03-11 2017-03-20 Outpatient 3 BETH THOMPSON OOS [id number] [facility] 10:07:00 11:04:00 [facility] 2017-01-30 2017-01-30 Emergency E [facility] MED [id number] Medical 16:32:00 16:32:00 [facility] 2014-03-10 2014-03-10 Outpatient [facility] [id number] eClinic 09:15:00 09:15:00 [facility] [employer], [facility] PA 2014-03-08 2014-03-08 Outpatient [facility] [id number] eClinic 09:15:00 09:15:00 [facility] [facility] [facility], [facility] PA Results Test Description Test Time Test Comments Results Result Comments Source [facility] 2019-01-26 12:43:00 Test Item Value Reference Range Interpretation Comme nts SODIUM (test code = NA) 140 MMOL/L 137-145 K+ (test code = KSERUM) 4.5 MMOL/L 3.5-5.1 PLEASE NOTE NEW REFERENCE RANGE (S) IN EFFECT EFFECTIVE 05/25/2010 - NEW ANALYZER (VITRO S 5600) CHLORIDE (test code = CL) 105 MMOL/L 98-107 CO2 (test code = CO2) 28 MMOL/L 22-30 BUN (test code = BUN) 15 MG/DL 7-17 CREA (test code = CREA) 1.1 MG/DL 0.7-1.2 GLUCOSE (test code = 112 MG/DL 70-99 H Fasti ng glucose normal <100 GLUCOSE) MG/DL- [employer] recommend ation CALCIUM (test code = 9.8 MG/DL 8.4-10.2 CABLOOD) TOTPROT (test code = 7.4 G/DL 6.3-8.2 TOTPROT) ALBUMIN (test code = 4.3 G/DL 3.5-5.0 ALBSERUM) BILITOT (test code = 0.2 MG/DL 0.2-1.3 BILITOT) AST (test code = AST) 25 U/L 15-46 PHOSALK (test code = 139 U/L 38-126 H PHOSALK) ALT (test code = ALT) 30 U/L 13-69 GFR (test code = GFR) 53 mL/min/1.73m2 A GFR of >90 mL/min/1.73m2 is considered norm al. THYROXINE,[id number] 12:43:00 Test Item Value Reference Range Interpretation Comments T4 (test code = T4) 8.96 UG/DL 5.53-11.0 THYROID STIMULATION [id number] 12:43:00 Test Item Value Reference Range Interpretation Comments TSH (test code = TSH) 1.45 UIU/ML 0.465-4.68 [id number] 12:30:00 Test Item Value Reference Range Interpretation Comments WBC (test code = 6.89 K/UL 3.5-10.9 WBC) RBC (test code = 4.17 M/UL 4.0-5.0 RBC) HGB (test code = 12.0 G/DL 11.5-15.5 HGB) HCT (test code = 39.4 % 34-46 HCT) MCV (test code = 94.5 FL 80-98 MCV) MCH (test code = 28.8 PG 28-32 MCH) MCHC (test code = 30.5 G/DL 32.5-36.5 L MCHC) RDW (test code = 14.2 % 11.5-14.5 RDW) PLT (test code = 303 K/UL 150-450 PLT) MPV (test code = 9.1 FL 7.4-10.4 MPV) MANDIFF (test code = NO MANDIFF) SCAN (test code = NO SCAN) NEUT% (test code = 62.1 % 40-75 NEUT%) LYMPH% (test code = 23.7 % 24-44 L LYMPH%) MONO% (test code = 5.5 % 0-13 MONO%) EOS% (test code = 7.5 % 0-4 H EOS%) BASO % (test code = 0.9 % 0-2 BASO%) IG% (test code = 0.3 % 0-1 IG% = Metam yelocytes, IG%) Myelocytes, and Promyelocytes. (Immature neutrophils not including "band s".) > 3% IG indicates risk of sepsis [id number] 12:57:00 Test Item Value Reference Range Interpretation Comments SODIUM (test code = 139 MMOL/L 137-145 NA) K+ (test code = 4.8 MMOL/L 3.5-5.1 PLEASE NOTE NEW KSERUM) REFERENCE RANGE (S) IN EFFECT EFFECTIVE 010 - NEW ANALYZER (V ITROS 5600) CHLORIDE (test code 102 MMOL/L 98-107 = CL) CO2 (test code = 29 MMOL/L 22-30 CO2) BUN (test code = 12 MG/DL 7-17 BUN) CREA (test code = 1.1 MG/DL 0.7-1.2 CREA) GLUCOSE (test code 85 MG/DL 70-99 Fasting glucose = GLUCOSE) normal <100 MG/ DL- [place] [employer] recommendation* * CALCIUM (test code 9.4 MG/DL 8.4-10.2 = CABLOOD) TOTPROT (test code 6.8 G/DL 6.3-8.2 = TOTPROT) ALBUMIN (test code 4.0 G/DL 3.5-5.0 = ALBSERUM) BILITOT (test code 0.2 MG/DL 0.2-1.3 = BILITOT) AST (test code = 24 U/L 15-46 AST) PHOSALK (test code 113 U/L 38-126 = PHOSALK) ALT (test code = 31 U/L 13-69 ALT) GFR (test code = 53 A GFR of >9 0 GFR) mL/min/1.73m2 mL/min/1.73m2 is considered norm al. THYROXINE,[id number] 12:57:00 Test Item Value Reference Range Interpretation Comments T4 (test code = T4) 10.8 UG/DL 5.53-11.0 THYROID STIMULATION [id number] 12:57:00 Test Item Value Reference Range Interpretation Comments TSH (test code = TSH) 1.87 UIU/ML 0.465-4.68 [id number] 11:06:00 Test Item Value Reference Range Interpretation Comments WBC (test code = 6.6 K/UL 3.5-10.9 WBC) RBC (test code = 3.86 M/UL 4.0-5.0 L RBC) HGB (test code = 11.3 G/DL 11.5-15.5 L HGB) HCT (test code = 35.6 % 34-46 HCT) MCV (test code = 92.2 FL 80-98 MCV) MCH (test code = 29.3 PG 28-32 MCH) MCHC (test code = 31.7 G/DL 32.5-36.5 L MCHC) RDW (test code = 13.9 % 11.5-14.5 RDW) PLT (test code = 250 K/UL 150-450 PLT) MPV (test code = 9.0 FL 7.4-10.4 MPV) MANDIFF (test code = NO MANDIFF) SCAN (test code = NO SCAN) NEUT% (test code = 66.9 % 40-75 NEUT%) LYMPH% (test code = 18.2 % 24-44 L LYMPH%) MONO% (test code = 7.2 % 0-13 MONO%) EOS% (test code = 6.8 % 0-4 H EOS%) BASO % (test code = 0.6 % 0-2 BASO%) IG (test code = IG) 0 % 0-1 IG% (test code = 0.3 % 0-1 IG% = Metam yelocytes, IG%) Myelocytes, and Promyelocytes. (Immature neutr ophils not including " bands".) > 3% IG indic ates risk of sepsis NRBC% (test code = 0 /100 WBC NRBC%) ABS NEUT (test code 4.4 K/UL 1.2-7.2 = NEUT) [id number] 13:31:00 Test Item Value Reference Range Interpretation Comments SODIUM (test code = 139 MMOL/L 137-145 NA) K+ (test code = 4.6 MMOL/L 3.5-5.1 PLEASE NOTE NEW KSERUM) REFERENCE RANGE (S) IN EFFECT EFFECTIVE 010 - NEW ANALYZER (V ITROS 5600) CHLORIDE (test code 101 MMOL/L 98-107 = CL) CO2 (test code = 30 MMOL/L 22-30 CO2) BUN (test code = 9 MG/DL 7-17 BUN) CREA (test code = 0.9 MG/DL 0.7-1.2 CREA) GLUCOSE (test code 79 MG/DL 70-99 Fasting glucose = GLUCOSE) normal <100 MG/ DL- [place] recommendation* * CALCIUM (test code 10.1 MG/DL 8.4-10.2 = CABLOOD) TOTPROT (test code 7.4 G/DL 6.3-8.2 = TOTPROT) ALBUMIN (test code 4.2 G/DL 3.5-5.0 = ALBSERUM) BILITOT (test code 0.3 MG/DL 0.2-1.3 = BILITOT) AST (test code = 33 U/L 15-46 AST) PHOSALK (test code 127 U/L 38-126 H = PHOSALK) ALT (test code = 28 U/L 13-69 ALT) GFR (test code = 67 A GFR of >9 0 GFR) mL/min/1.73m2 mL/min/1.73m2 is considered norm al. THYROID STIMULATION [id number] 13:31:00 Test Item Value Reference Range Interpretation Comments TSH (test code = TSH) 1.75 UIU/ML 0.465-4.68 THYROXINE,[id number] 13:31:00 Test Item Value Reference Range Interpretation Comments T4 (test code = T4) 8.1 UG/DL 5.53-11.0 [id number] 12:37:00 Test Item Value Reference Range Interpretation Comments WBC (test code = 7.6 K/UL 3.5-10.9 WBC) RBC (test code = 4.25 M/UL 4.0-5.0 RBC) HGB (test code = 12.4 G/DL 11.5-15.5 HGB) HCT (test code = 39.9 % 34-46 HCT) MCV (test code = 93.9 FL 80-98 MCV) MCH (test code = 29.2 PG 28-32 MCH) MCHC (test code = 31.1 G/DL 32.5-36.5 L MCHC) RDW (test code = 14.5 % 11.5-14.5 RDW) PLT (test code = 262 K/UL 150-450 PLT) MPV (test code = 8.8 FL 7.4-10.4 MPV) MANDIFF (test code = NO MANDIFF) SCAN (test code = NO SCAN) NEUT% (test code = 59.2 % 40-75 NEUT%) LYMPH% (test code = 25.1 % 24-44 LYMPH%) MONO% (test code = 7.6 % 0-13 MONO%) EOS% (test code = 7.1 % 0-4 H EOS%) BASO % (test code = 0.7 % 0-2 BASO%) IG (test code = IG) 0 % 0-1 IG% (test code = 0.3 % 0-1 IG% = Metam yelocytes, IG%) Myelocytes, and Promyelocytes. (Immature neutr ophils not including " bands".) > 3% IG indic ates risk of sepsis NRBC% (test code = 0 /100 WBC NRBC%) ABS NEUT (test code 4.5 K/UL 1.2-7.2 = NEUT) THYROXINE,[id number] 11:42:00 Test Item Value Reference Range Interpretation Comments T4 (test code = T4) 8.8 UG/DL 5.53-11.0 THYROID STIMULATION [id number] 11:42:00 Test Item Value Reference Range Interpretation Comments TSH (test code = TSH) 1.28 UIU/ML 0.465-4.68 [id number] 11:42:00 Test Item Value Reference Range Interpretation Comments SODIUM (test code = 140 MMOL/L 137-145 NA) K+ (test code = 4.1 MMOL/L 3.5-5.1 PLEASE NOTE NEW KSERUM) REFERENCE RANGE (S) IN EFFECT EFFECTIVE 010 - NEW ANALYZER (V ITROS 5600) CHLORIDE (test code 104 MMOL/L 98-107 = CL) CO2 (test code = 28 MMOL/L 22-30 CO2) BUN (test code = 9 MG/DL 7-17 BUN) CREA (test code = 1.0 MG/DL 0.7-1.2 CREA) GLUCOSE (test code 110 MG/DL 70-99 H Fasting glucose = GLUCOSE) normal <100 MG/ DL- [employer] recommendation* * CALCIUM (test code 9.7 MG/DL 8.4-10.2 = CABLOOD) TOTPROT (test code 7.1 G/DL 6.3-8.2 = TOTPROT) ALBUMIN (test code 4.2 G/DL 3.5-5.0 = ALBSERUM) BILITOT (test code 0.4 MG/DL 0.2-1.3 = BILITOT) AST (test code = 24 U/L 15-46 AST) PHOSALK (test code 119 U/L 38-126 = PHOSALK) ALT (test code = 28 U/L 13-69 ALT) GFR (test code = 60 A GFR of >9 0 GFR) mL/min/1.73m2 mL/min/1.73m2 is considered norm al. [id number] 10:49:00 Test Item Value Reference Range Interpretation Comments WBC (test code = 7.8 K/UL 3.5-10.9 WBC) RBC (test code = 3.92 M/UL 4.0-5.0 L RBC) HGB (test code = 11.4 G/DL 11.5-15.5 L HGB) HCT (test code = 36.8 % 34-46 HCT) MCV (test code = 93.9 FL 80-98 MCV) MCH (test code = 29.1 PG 28-32 MCH) MCHC (test code = 31.0 G/DL 32.5-36.5 L MCHC) RDW (test code = 14.6 % 11.5-14.5 H RDW) PLT (test code = 256 K/UL 150-450 PLT) MPV (test code = 8.8 FL 7.4-10.4 MPV) MANDIFF (test code = NO MANDIFF) SCAN (test code = NO SCAN) NEUT% (test code = 72.1 % 40-75 NEUT%) LYMPH% (test code = 16.9 % 24-44 L LYMPH%) MONO% (test code = 6.1 % 0-13 MONO%) EOS% (test code = 4.0 % 0-4 EOS%) BASO % (test code = 0.5 % 0-2 BASO%) IG (test code = IG) 0 % 0-1 IG% (test code = 0.4 % 0-1 IG% = Metam yelocytes, IG%) Myelocytes, and Promyelocytes. (Immature neutr ophils not including " bands".) > 3% IG indic ates risk of sepsis NRBC% (test code = 0 /100 WBC NRBC%) ABS NEUT (test code 5.7 K/UL 1.2-7.2 = NEUT) PET/CT ET SUBSEQUENT [id number] 13:35:[address] [id number] IMAGING REPORTPatient Name: AZAM CARMENDate of Service: [id number]: 63 Sex: F Order #: [id number] Room: OPEDOB: 1955 X-Ray Number: [id number] Record Number: [id number] Hospital Number: [id number] Physician: MOISES HANEYOrdering Physician: ZAHIDA HANEY IMAGING WITH CT,10/30/2018 11:07 AMHISTORY:Lung cancer.TECHNIQUE: Following the intravenous administration of10.8 millicuries F 18FDG, multiple tomographic images of the head to the thighs are performed.3-D MIP images are reviewed. Noncontrast CT was also performed forattenuation correction and lesion localization. Glucose level [id number] per deciliter.COMPARISON:July 17, 2018.FINDINGS:2 cm nodular density in the right suprahilar region demonstrates metabolicactivity associated with tumor, (3.5 SUV). This is more pronounced thannoted previously.There are strandy nodularity associated with the right base withfocidemonstrating metabolic activity measuring up to 4.7 SUV. Also morepronounced than noted previously in terms of metabolic activity.These changes could represent recurrence or worsening.There is no suspicious appearing hilar or mediastinal adenopathy depicted.There is no evidence of specific solid organ metastasis involving the upperabdomen.There is evidence of normal physiologic bowel activity.There is no retroperitoneal adenopathy.There is prior cholecystectomy.There is no definite evidence of osseous metastasis seen.Impression:Increasing metabolic activity associated with strandy parenchymal changesinvolving the right lung base as well as a focus in the right suprahilarregion, new or worse from prior. Progression of disease not excluded.Electronically Signed By: Vadim Robles M.D., 10/30 1:33 PMLegally authenticated by GERARD Ayala 2018-10-30 13:33:15WHOLE BLOOD [id number] 09:05:00 Test Item Value Reference Range Interpretation Comments WHOLE BLOOD GLUCOSE (test code = 109 MG/DL 70-99 POC GLU) [id number] 13:29:00 Test Item Value Reference Range Interpretation Comments SODIUM (test code = 138 MMOL/L 137-145 NA) K+ (test code = 4.3 MMOL/L 3.5-5.1 PLEASE NOTE NEW KSERUM) REFERENCE RANGE (S) IN EFFECT EFFECTIVE 010 - NEW ANALYZER (V ITROS 5600) CHLORIDE (test code 104 MMOL/L 98-107 = CL) CO2 (test code = 30 MMOL/L 22-30 CO2) BUN (test code = 11 MG/DL 7-17 BUN) CREA (test code = 0.9 MG/DL 0.7-1.2 CREA) GLUCOSE (test code 86 MG/DL 70-99 Fasting glucose = GLUCOSE) normal <100 MG/ DL- [place] [employer] recommendation* * CALCIUM (test code 9.5 MG/DL 8.4-10.2 = CABLOOD) TOTPROT (test code 7.0 G/DL 6.3-8.2 = TOTPROT) ALBUMIN (test code 4.0 G/DL 3.5-5.0 = ALBSERUM) BILITOT (test code 0.2 MG/DL 0.2-1.3 = BILITOT) AST (test code = 26 U/L 15-46 AST) PHOSALK (test code 118 U/L 38-126 = PHOSALK) ALT (test code = 26 U/L 13-69 ALT) GFR (test code = 67 A GFR of >9 0 GFR) mL/min/1.73m2 mL/min/1.73m2 is considered norm al. [id number] 13:05:00 Test Item Value Reference Range Interpretation Comments WBC (test code = 6.1 K/UL 3.5-10.9 WBC) RBC (test code = 3.87 M/UL 4.0-5.0 L RBC) HGB (test code = 11.5 G/DL 11.5-15.5 HGB) HCT (test code = 35.3 % 34-46 HCT) MCV (test code = 91.2 FL 80-98 MCV) MCH (test code = 29.7 PG 28-32 MCH) MCHC (test code = 32.6 G/DL 32.5-36.5 MCHC) RDW (test code = 14.6 % 11.5-14.5 H RDW) PLT (test code = 255 K/UL 150-450 PLT) MPV (test code = 9.0 FL 7.4-10.4 MPV) MANDIFF (test code = NO MANDIFF) SCAN (test code = NO SCAN) NEUT% (test code = 59.8 % 40-75 NEUT%) LYMPH% (test code = 25.9 % 24-44 LYMPH%) MONO% (test code = 7.4 % 0-13 MONO%) EOS% (test code = 6.1 % 0-4 H EOS%) BASO % (test code = 0.5 % 0-2 BASO%) IG (test code = IG) 0 % 0-1 IG% (test code = 0.3 % 0-1 IG% = Metam yelocytes, IG%) Myelocytes, and Promyelocytes. (Immature neutr ophils not including " bands".) > 3% IG indic ates risk of sepsis NRBC% (test code = 0 /100 WBC NRBC%) ABS NEUT (test code 3.6 K/UL 1.2-7.2 = NEUT) THYROXINE,[id number] 17:22:00 Test Item Value Reference Range Interpretation Comments T4 (test code = T4) 8.0 UG/DL 5.53-11.0 THYROID STIMULATION [id number] 17:22:00 Test Item Value Reference Range Interpretation Comments TSH (test code = TSH) 1.82 UIU/ML 0.465-4.68 [id number] 17:22:00 Test Item Value Reference Range Interpretation Comments SODIUM (test code = 136 MMOL/L 137-145 L NA) K+ (test code = 4.5 MMOL/L 3.5-5.1 PLEASE NOTE NEW KSERUM) REFERENCE RANGE (S) IN EFFECT EFFECTIVE 010 - NEW ANALYZER (V ITROS 5600) CHLORIDE (test code 99 MMOL/L 98-107 = CL) CO2 (test code = 31 MMOL/L 22-30 H CO2) BUN (test code = 15 MG/DL 7-17 BUN) CREA (test code = 1.2 MG/DL 0.7-1.2 CREA) GLUCOSE (test code 101 MG/DL 70-99 H Fasting glucose = GLUCOSE) normal <100 MG/ DL- [place] [employer] recommendation* * CALCIUM (test code 9.5 MG/DL 8.4-10.2 = CABLOOD) TOTPROT (test code 7.3 G/DL 6.3-8.2 = TOTPROT) ALBUMIN (test code 4.3 G/DL 3.5-5.0 = ALBSERUM) BILITOT (test code 0.3 MG/DL 0.2-1.3 = BILITOT) AST (test code = 24 U/L 15-46 AST) PHOSALK (test code 134 U/L 38-126 H = PHOSALK) ALT (test code = 23 U/L 13-69 ALT) GFR (test code = 48 A GFR of >9 0 GFR) mL/min/1.73m2 mL/min/1.73m2 is considered norm al. [id number] 16:41:00 Test Item Value Reference Range Interpretation Comments WBC (test code = 7.6 K/UL 3.5-10.9 WBC) RBC (test code = 4.36 M/UL 4.0-5.0 RBC) HGB (test code = 13.2 G/DL 11.5-15.5 HGB) HCT (test code = 40.7 % 34-46 HCT) MCV (test code = 93.3 FL 80-98 MCV) MCH (test code = 30.3 PG 28-32 MCH) MCHC (test code = 32.4 G/DL 32.5-36.5 L MCHC) RDW (test code = 14.4 % 11.5-14.5 RDW) PLT (test code = 269 K/UL 150-450 PLT) MPV (test code = 8.9 FL 7.4-10.4 MPV) MANDIFF (test code = NO MANDIFF) SCAN (test code = NO SCAN) NEUT% (test code = 57.0 % 40-75 NEUT%) LYMPH% (test code = 26.3 % 24-44 LYMPH%) MONO% (test code = 7.4 % 0-13 MONO%) EOS% (test code = 8.3 % 0-4 H EOS%) BASO % (test code = 0.7 % 0-2 BASO%) IG (test code = IG) 0 % 0-1 IG% (test code = 0.3 % 0-1 IG% = Metam yelocytes, IG%) Myelocytes, and Promyelocytes. (Immature neutr ophils not including " bands".) > 3% IG indic ates risk of sepsis NRBC% (test code = 0 /100 WBC NRBC%) ABS NEUT (test code 4.4 K/UL 1.2-7.2 = NEUT) THYROXINE,[id number] 13:57:00 Test Item Value Reference Range Interpretation Comments T4 (test code = T4) 7.6 UG/DL 5.53-11.0 THYROID STIMULATION [id number] 13:57:00 Test Item Value Reference Range Interpretation Comments TSH (test code = TSH) 1.64 UIU/ML 0.465-4.68 [id number] 13:57:00 Test Item Value Reference Range Interpretation Comments SODIUM (test code = 139 MMOL/L 137-145 NA) K+ (test code = 5.0 MMOL/L 3.5-5.1 PLEASE NOTE NEW KSERUM) REFERENCE RANGE (S) IN EFFECT EFFECTIVE 010 - NEW ANALYZER (V ITROS 5600) CHLORIDE (test code 102 MMOL/L 98-107 = CL) CO2 (test code = 30 MMOL/L 22-30 CO2) BUN (test code = 16 MG/DL 7-17 BUN) CREA (test code = 1.1 MG/DL 0.7-1.2 CREA) GLUCOSE (test code 99 MG/DL 70-99 Fasting glucose = GLUCOSE) normal <100 MG/ DL- [employer] recommendation* * CALCIUM (test code 9.8 MG/DL 8.4-10.2 = CABLOOD) TOTPROT (test code 7.3 G/DL 6.3-8.2 = TOTPROT) ALBUMIN (test code 4.2 G/DL 3.5-5.0 = ALBSERUM) BILITOT (test code 0.4 MG/DL 0.2-1.3 = BILITOT) AST (test code = 26 U/L 15-46 AST) PHOSALK (test code 147 U/L 38-126 H = PHOSALK) ALT (test code = 23 U/L 13-69 ALT) GFR (test code = 53 A GFR of >9 0 GFR) mL/min/1.73m2 mL/min/1.73m2 is considered norm al. [id number] 11:17:00 Test Item Value Reference Range Interpretation Comments WBC (test code = 9.0 K/UL 3.5-10.9 WBC) RBC (test code = 4.11 M/UL 4.0-5.0 RBC) HGB (test code = 12.3 G/DL 11.5-15.5 HGB) HCT (test code = 37.8 % 34-46 HCT) MCV (test code = 92.0 FL 80-98 MCV) MCH (test code = 29.9 PG 28-32 MCH) MCHC (test code = 32.5 G/DL 32.5-36.5 MCHC) RDW (test code = 14.2 % 11.5-14.5 RDW) PLT (test code = 249 K/UL 150-450 PLT) MPV (test code = 8.9 FL 7.4-10.4 MPV) MANDIFF (test code = NO MANDIFF) SCAN (test code = NO SCAN) NEUT% (test code = 69.2 % 40-75 NEUT%) LYMPH% (test code = 16.8 % 24-44 L LYMPH%) MONO% (test code = 6.5 % 0-13 MONO%) EOS% (test code = 6.6 % 0-4 H EOS%) BASO % (test code = 0.7 % 0-2 BASO%) IG (test code = IG) 0 % 0-1 IG% (test code = 0.2 % 0-1 IG% = Metam yelocytes, IG%) Myelocytes, and Promyelocytes. (Immature neutr ophils not including " bands".) > 3% IG indic ates risk of sepsis NRBC% (test code = 0 /100 WBC NRBC%) ABS NEUT (test code 6.2 K/UL 1.2-7.2 = NEUT) [id number] 13:15:00 Test Item Value Reference Range Interpretation Comments SODIUM (test code = 139 MMOL/L 137-145 NA) K+ (test code = 4.0 MMOL/L 3.5-5.1 PLEASE NOTE NEW KSERUM) REFERENCE RANGE (S) IN EFFECT EFFECTIVE 010 - NEW ANALYZER (V ITROS 5600) CHLORIDE (test code 101 MMOL/L 98-107 = CL) CO2 (test code = 29 MMOL/L 22-30 CO2) BUN (test code = 11 MG/DL 7-17 BUN) CREA (test code = 0.9 MG/DL 0.7-1.2 CREA) GLUCOSE (test code 79 MG/DL 70-99 Fasting glucose = GLUCOSE) normal <100 MG/ DL- [employer] recommendation* * CALCIUM (test code 9.8 MG/DL 8.4-10.2 = CABLOOD) TOTPROT (test code 7.2 G/DL 6.3-8.2 = TOTPROT) ALBUMIN (test code 4.3 G/DL 3.5-5.0 = ALBSERUM) BILITOT (test code 0.4 MG/DL 0.2-1.3 = BILITOT) AST (test code = 27 U/L 15-46 AST) PHOSALK (test code 122 U/L 38-126 = PHOSALK) ALT (test code = 26 U/L 13-69 ALT) GFR (test code = 67 A GFR of >9 0 GFR) mL/min/1.73m2 mL/min/1.73m2 is considered norm al. [id number] 12:35:00 Test Item Value Reference Range Interpretation Comments WBC (test code = 7.9 K/UL 3.5-10.9 WBC) RBC (test code = 3.94 M/UL 4.0-5.0 L RBC) HGB (test code = 12.2 G/DL 11.5-15.5 HGB) HCT (test code = 36.4 % 34-46 HCT) MCV (test code = 92.4 FL 80-98 MCV) MCH (test code = 31.0 PG 28-32 MCH) MCHC (test code = 33.5 G/DL 32.5-36.5 MCHC) RDW (test code = 14.5 % 11.5-14.5 RDW) PLT (test code = 317 K/UL 150-450 PLT) MPV (test code = 8.5 FL 7.4-10.4 MPV) MANDIFF (test code = NO MANDIFF) SCAN (test code = NO SCAN) NEUT% (test code = 63.1 % 40-75 NEUT%) LYMPH% (test code = 23.6 % 24-44 L LYMPH%) MONO% (test code = 6.7 % 0-13 MONO%) EOS% (test code = 5.8 % 0-4 H EOS%) BASO % (test code = 0.5 % 0-2 BASO%) IG (test code = IG) 0 % 0-1 IG% (test code = 0.3 % 0-1 IG% = Metam yelocytes, IG%) Myelocytes, and Promyelocytes. (Immature neutr ophils not including " bands".) > 3% IG indic ates risk of sepsis NRBC% (test code = 0 /100 WBC NRBC%) ABS NEUT (test code 5.0 K/UL 1.2-7.2 = NEUT) [id number] 17:02:00HEART RATE: 96 bpmRR Interval: 625 msAtrial Rate: 96 msP-R Interval: 134 msP Duration: 114 msP Horizontal [place]: -12 degP Front [place]: 23 degQ Onset: 499 msQRSD Interval: 90 msQT Interval: 347 msQTcB: 439 msQTcF: 406 msQRS Horizontal [place]: -19 degQRS [place]: 6 degI-40 Horizontal [place]: 28 degI-40 Front [place]: 59 degT-40 Horizontal [place]: -42 degT-40 Front [place]: -12 degT Horizontal [place]: 40 degT Wave [place]: 56 degS-T Horizontal [place]: 81 degS-T Front [place]: 125 degECG Severity: - BORDERLINE ECG -ECG Impression: Sinus rhythmECG Impression: Atrial premature complexECG Impression: Probable left atrial [id number] 13:57:00 Test Item Value Reference Range Interpretation Comments SODIUM (test code = 139 MMOL/L 137-145 NA) K+ (test code = 4.9 MMOL/L 3.5-5.1 PLEASE NOTE NEW KSERUM) REFERENCE RANGE (S) IN EFFECT EFFECTIVE 010 - NEW ANALYZER (V ITROS 5600) CHLORIDE (test code 102 MMOL/L 98-107 = CL) CO2 (test code = 29 MMOL/L 22-30 CO2) BUN (test code = 12 MG/DL 7-17 BUN) CREA (test code = 1.0 MG/DL 0.7-1.2 CREA) GLUCOSE (test code 65 MG/DL 70-99 L Fasting glucose = GLUCOSE) normal <100 MG/ DL- [employer] [employer] recommendation* * CALCIUM (test code 9.9 MG/DL 8.4-10.2 = CABLOOD) TOTPROT (test code 7.0 G/DL 6.3-8.2 = TOTPROT) ALBUMIN (test code 4.2 G/DL 3.5-5.0 = ALBSERUM) BILITOT (test code 0.4 MG/DL 0.2-1.3 = BILITOT) AST (test code = 25 U/L 15-46 AST) PHOSALK (test code 119 U/L 38-126 = PHOSALK) ALT (test code = 32 U/L 13-69 ALT) GFR (test code = 60 A GFR of >9 0 GFR) mL/min/1.73m2 mL/min/1.73m2 is considered norm al. PROTHROMBIN TIME WITH [id number] 13:45:00 Test Item Value Reference Range Interpretation Comments PROTHROMBIN TIME 13.0 SECONDS 12.0-14.6 INR Usual R janet = 2 (test code = PT) to 3 for pr evention of deep vein thrombosis (DVT ) INR (test code = INR) 1.0 [id number] 13:45:00 Test Item Value Reference Range Interpretation Comments PTT (test code = 31.5 SECONDS 24.4-36.3 HEPARIN THE RAPEUTIC PTT) RANGE 57-92 SEC ONDS [id number] 13:35:00 Test Item Value Reference Range Interpretation Comments WBC (test code = 9.1 K/UL 3.5-10.9 WBC) RBC (test code = 4.03 M/UL 4.0-5.0 RBC) HGB (test code = 11.8 G/DL 11.5-15.5 HGB) HCT (test code = 36.5 % 34-46 HCT) MCV (test code = 90.6 FL 80-98 MCV) MCH (test code = 29.3 PG 28-32 MCH) MCHC (test code = 32.3 G/DL 32.5-36.5 L MCHC) RDW (test code = 14.3 % 11.5-14.5 RDW) PLT (test code = 328 K/UL 150-450 PLT) MPV (test code = 8.5 FL 7.4-10.4 MPV) MANDIFF (test code = NO MANDIFF) SCAN (test code = NO SCAN) NEUT% (test code = 68.3 % 40-75 NEUT%) LYMPH% (test code = 20.2 % 24-44 L LYMPH%) MONO% (test code = 7.0 % 0-13 MONO%) EOS% (test code = 3.6 % 0-4 EOS%) BASO % (test code = 0.7 % 0-2 BASO%) IG (test code = IG) 0 % 0-1 IG% (test code = 0.2 % 0-1 IG% = Metam yelocytes, IG%) Myelocytes, and Promyelocytes. (Immature neutr ophils not including " bands".) > 3% IG indic ates risk of sepsis NRBC% (test code = 0 /100 WBC NRBC%) ABS NEUT (test code 6.2 K/UL 1.2-7.2 = NEUT) CHEST XR 2 [id number] 12:31:[place] [id number] IMAGING REPORTPatient Name: Fiona CARMEN of Service: [id number]: 62 Sex: F Order #: [id number] Room: PASDOB: 1955 X-Ray Number: [id number] Record Number: [id number] Hospital Number: [id number] Physician: Aubrey ANNing Physician: SILVERIO ANN XR 2 VIEWS 08/15/2018 12:25 PMHistory: surgery, COPD, Mediport.Comparisons: None Available.FINDINGS:Heart size is normal.There is no focal lung consolidation. There is some linear scarring at theRIGHT lung base.There is no definite pleural effusion or pneumothorax identified.Left-sided Mediport is in position.Hyperinflationsuggests COPD.IMPRESSION:No acute cardiopulmonary process.Electronically Signed By: Angelito Grier M.D., 08/15/2018 12:28 PMLegally authenticated by CLARENCE TERRY 2018-08-15 12:28:42MRI BRAIN [id number] 14:18:[address] [id number] IMAGING REPORTPatient Name: Fiona CARMEN of Service: [id number]: 62 Sex: F Order #: 100 Room: OPEDOB: 1955 X-Ray Number: [id number] Record Number: [id number] Hospital Number: [id number] Physician: Conrado WRIGHT Physician: ESTHELA WRIGHT BRAIN with sbivkmei37/23/2018 10:15 AMHistory: dizziness, malignant neoplasm of lungComparisons: 07/03/2017IV contrast was administered for the exam.Findings:There is diffuse cortical atrophy.Periventricular and subcortical white matter changes are technicallynonspecific although these most commonly represent chronic small vesselgliosis. Other less likely considerations include demyelinating process,vasculitis, sequelaof migraine headache syndrome or rarely, Lyme disease.There is no mass effect or midline shift present.There is no extra-axial fluid collection, intracranial hemorrhage orhydrocephalus.Diffusion weighted imaging demonstrates no evidence for acute infarction.There are no abnormal enhancing mass lesions.Impression:Suspected mild chronic ischemic changes with diffuse cortical atrophy.No evidence for intracranial metastasis or acute process.Electronically Signed By: Angelito Grier M.D., 08/12/2018 2:16PMLegally authenticated by CLARENCE TERRY 2018-08-12 14:16:22THYROXINE,[id number] 18:04:00 Test Item Value Reference Range Interpretation Comments T4 (test code = T4) 9.0 UG/DL 5.53-11.0 FREE [id number] 18:04:00 Test Item Value Reference Range Interpretation Comments FREE T3 (test code = T3FREE) 4.19 pg/mL 2.77-5.27 FREE [id number] 18:04:00 Test Item Value Reference Range Interpretation Comments FT4 (test code = FT4) 0.79 ng/dL 0.78-2.19 THYROID STIMULATION [id number] 18:04:00 Test Item Value Reference Range Interpretation Comments TSH (test code = TSH) 1.34 UIU/ML 0.465-4.68 [id number] 18:04:00 Test Item Value Reference Range Interpretation Comments SODIUM (test code = 139 MMOL/L 137-145 NA) K+ (test code = 3.9 MMOL/L 3.5-5.1 PLEASE NOTE NEW KSERUM) REFERENCE RANGE (S) IN EFFECT EFFECTIVE 010 - NEW ANALYZER (V ITROS 5600) CHLORIDE (test code 101 MMOL/L 98-107 = CL) CO2 (test code = 31 MMOL/L 22-30 H CO2) BUN (test code = 9 MG/DL 7-17 BUN) CREA (test code = 1.0 MG/DL 0.7-1.2 CREA) GLUCOSE (test code 83 MG/DL 70-99 Fasting glucose = GLUCOSE) normal <100 MG/ DL- [employer] [employer] recommendation* * CALCIUM (test code 9.4 MG/DL 8.4-10.2 = CABLOOD) TOTPROT (test code 7.3 G/DL 6.3-8.2 = TOTPROT) ALBUMIN (test code 4.3 G/DL 3.5-5.0 = ALBSERUM) BILITOT (test code 0.3 MG/DL 0.2-1.3 = BILITOT) AST (test code = 29 U/L 15-46 AST) PHOSALK (test code 123 U/L 38-126 = PHOSALK) ALT (test code = 34 U/L 13-69 ALT) GFR (test code = 60 A GFR of >9 0 GFR) mL/min/1.73m2 mL/min/1.73m2 is considered norm al. [id number] 16:16:00 Test Item Value Reference Range Interpretation Comments WBC (test code = 6.9 K/UL 3.5-10.9 WBC) RBC (test code = 4.57 M/UL 4.0-5.0 RBC) HGB (test code = 13.4 G/DL 11.5-15.5 HGB) HCT (test code = 40.9 % 34-46 HCT) MCV (test code = 89.5 FL 80-98 MCV) MCH (test code = 29.3 PG 28-32 MCH) MCHC (test code = 32.8 G/DL 32.5-36.5 MCHC) RDW (test code = 14.9 % 11.5-14.5 H RDW) PLT (test code = 245 K/UL 150-450 PLT) MPV (test code = 8.9 FL 7.4-10.4 MPV) MANDIFF (test code = NO MANDIFF) SCAN (test code = NO SCAN) NEUT% (test code = 61.0 % 40-75 NEUT%) LYMPH% (test code = 24.8 % 24-44 LYMPH%) MONO% (test code = 7.7 % 0-13 MONO%) EOS% (test code = 5.8 % 0-4 H EOS%) BASO % (test code = 0.6 % 0-2 BASO%) IG (test code = IG) 0 % 0-1 IG% (test code = 0.1 % 0-1 IG% = Metam yelocytes, IG%) Myelocytes, and Promyelocytes. (Immature neutr ophils not including " bands".) > 3% IG indic ates risk of sepsis NRBC% (test code = 0 /100 WBC NRBC%) ABS NEUT (test code 4.2 K/UL 1.2-7.2 = NEUT) PET/CT ET SUBSEQUENT [id number] 16:01:[address] [address]MFQOWIWPJT IMAGING REPORTPatient Name: Fiona CARMEN of Service: [id number]: 62 Sex: F Order #: 100 Room: OPEDOB: 1955 X-Ray Number: [id number] Record Number: [id number] Hospital Number: [id number] Physician: SRUTHI WRIGHTOrdering Physician: SRUTHI WRIGHTF-18 FDG PET/CT FUSION SCAN EYES TO THIGHS 07/17/2018HISTORY: Right lung cancer, follow-up.COMPARISON: PET/CT of 03/14/2018.TECHNIQUE: CT scan is performed without contrast from the skull base tothe mid femora. This is used for attenuation correction and anatomiclocalization. Next, following intravenous injection of 10.8 mCi of F- 18labeled FDG, whole body PET scan is performed. Multiplanar reformatted,MIP, and PET/CT fusion images are reviewed on a workstation. Blood glucoselevel was 112 mg/dl.FINDINGS: Patchy density in the right lung lower lobe is essentiallystable. No clearly suspicious new neoplastic process is identified. SUVinvolving the right lung lower lobe areas of consolidation and adjacenthilum is measured at up to 3.2. Uptake in foci of the right lung isactually less pronounced than on the prior study.No new neoplastic type process is identified.No other adverse interval changes.IMPRESSION:Stable to lesspronounced findings involving the right lung lower lobe andadjacent hilum as discussed. Again, no definite new neoplastic process isevident. There is no clear evidence of adverse interval progression ofdisease.THANK YOU FOR YOUR OUTPATIENT REFERRALjhbElectronically Signed By: Ghassan Kenyon M.D., 07/17/2018 3:59 PMLegally authenticated by GABY SINGH 2018-07-17 15:59:09WHOLE BLOOD [id number] 11:16:00 Test Item Value Reference Range Interpretation Comments WHOLE BLOOD GLUCOSE 112 mg/dL 70-99 H Fastin g glucose (test code = POC GLU) normal <100 MG/DL- [employer] [employer] recommend ation [id number] 13:58:00 Test Item Value Reference Range Interpretation Comments WBC (test code = 8.4 K/UL 3.5-10.9 WBC) RBC (test code = 4.38 M/UL 4.0-5.0 RBC) HGB (test code = 12.8 G/DL 11.5-15.5 HGB) HCT (test code = 39.4 % 34-46 HCT) MCV (test code = 90.0 FL 80-98 MCV) MCH (test code = 29.2 PG 28-32 MCH) MCHC (test code = 32.5 G/DL 32.5-36.5 MCHC) RDW (test code = 14.6 % 11.5-14.5 H RDW) PLT (test code = 197 K/UL 150-450 PLT) MPV (test code = 9.0 FL 7.4-10.4 MPV) MANDIFF (test code = NO MANDIFF) SCAN (test code = NO SCAN) NEUT% (test code = 65.0 % 40-75 NEUT%) LYMPH% (test code = 17.4 % 24-44 L LYMPH%) MONO% (test code = 7.3 % 0-13 MONO%) EOS% (test code = 9.2 % 0-4 H EOS%) BASO % (test code = 0.4 % 0-2 BASO%) IG (test code = IG) 0 % 0-1 IG% (test code = 0.7 % 0-1 IG% = Metam yelocytes, IG%) Myelocytes, and Promyelocytes. (Immature neutrophils not including "band s".) > 3% IG indicates risk of sepsis ABS NEUT (test code 5.4 K/UL 1.2-7.2 = NEUT) [id number] 13:38:00 Test Item Value Reference Range Interpretation Comments SODIUM (test code = 139 MMOL/L 137-145 NA) K+ (test code = 4.2 MMOL/L 3.5-5.1 PLEASE NOTE NEW KSERUM) REFERENCE RANGE (S) IN EFFECT EFFECTIVE 010 - NEW ANALYZER (V ITROS 5600) CHLORIDE (test code 99 MMOL/L 98-107 = CL) CO2 (test code = 33 MMOL/L 22-30 H CO2) BUN (test code = 12 MG/DL 7-17 BUN) CREA (test code = 1.0 MG/DL 0.7-1.2 CREA) GLUCOSE (test code 86 MG/DL 70-99 Fasting glucose = GLUCOSE) normal <100 MG/ DL- [place] [employer] recommendation* * CALCIUM (test code 9.4 MG/DL 8.4-10.2 = CABLOOD) TOTPROT (test code 6.7 G/DL 6.3-8.2 = TOTPROT) ALBUMIN (test code 3.9 G/DL 3.5-5.0 = ALBSERUM) BILITOT (test code 0.4 MG/DL 0.2-1.3 = BILITOT) AST (test code = 20 U/L 15-46 AST) PHOSALK (test code 115 U/L 38-126 = PHOSALK) ALT (test code = 28 U/L 13-69 ALT) GFR (test code = 60 A GFR of >9 0 GFR) mL/min/1.73m2 mL/min/1.73m2 is considered norm al. US VENOUS [id number] 14:38:[address] [id number] IMAGING REPORTPatient Name: Fiona CARMEN of Service: [id number]: 62 Sex: F Order #: [id number] Room: OPEDOB: 1955 X-Ray Number: [id number] Record Number: [id number] Hospital Number: [id number] Physician: SAJI BUENOOrdering Physician: Karly BUENOateral lower extremity venous Doppler ultrasound 06/09/2018History: Bilateral leg swelling and shortness of breathComparison: NoneFindings:Grayscale, color-flow, and duplex images with spectral analysis wereobtained.There is normalspontaneous flow with good compressibility in commonfemoral, superficial femoral and popliteal veinsbilaterally. Anterior andposterior tibial veins are unremarkable on both sides as well. No DVT isseen .Impression:Negative for DVT.Electronically Signed By: Ghassan Kenyon M.D., 06/09/2018 2:36 PMLegally authenticated by GABY SINGH 2018-06-09 14:36:15CTA [id number] 14:11:[address] [id number] IMAGING REPORTPatient Name: Fiona CARMEN of Service: [id number]: 62 Sex: F Order #: 100 Room: OPEDOB: 1955 X-Ray Number: [id number] Record Number: [id number] Hospital Number: [id number] Physician: SAJI BUENOOrdering Physician: JUAN C BUENO CHEST 06/09/2018 12:54 PMHistory: dyspnea , localized edema, shortness of breath, leg swelling.Comparisons: 10/14/2017 CTA ches tTECHNIQUE:Maximum intensity projection (MIP) images were performed and utilized forinterpretation of the current examination. This CT exam was performed usingone or more of the following dose reduction techniques: Automated exposurecontrol, adjustment of the MA and/or KV according to patient size or use ofiterative reconstruction technique.FINDINGS:There are no intraluminal filling defects within the pulmonary arteries tosuggest pulmonary embolism.There is stable linear fibrosis and patchy density within the RIGHT lowerlobe, similar in appearance compared to prior.There is no pleural effusion or pneumothorax.There is no evidence for aortic aneurysm or dissection.Impression:No acute process or evidence for pulmonary embolism.Stable RIGHT lower lobe fibrosis.Electronically Signed By: Angelito Grier M.D., 06/09/2018 2:08 PMLegally authenticated by LCARENCE TERRY 2018-06-09 14:08:[id number] 12:17:00 Test Item Value Reference Range Interpretation Comments SODIUM (test code = 141 MMOL/L 137-145 NA) K+ (test code = 4.1 MMOL/L 3.5-5.1 PLEASE NOTE NEW KSERUM) REFERENCE RANGE (S) IN EFFECT EFFECTIVE 010 - NEW ANALYZER (V ITROS 5600) CHLORIDE (test code 103 MMOL/L 98-107 = CL) CO2 (test code = 29 MMOL/L 22-30 CO2) BUN (test code = 11 MG/DL 7-17 BUN) CREA (test code = 1.1 MG/DL 0.7-1.2 CREA) GLUCOSE (test code 80 MG/DL 70-99 Fasting glucose = GLUCOSE) normal <100 MG/ DL- [employer] [employer] recommendation* * CALCIUM (test code 10.0 MG/DL 8.4-10.2 = CABLOOD) TOTPROT (test code 7.5 G/DL 6.3-8.2 = TOTPROT) ALBUMIN (test code 4.4 G/DL 3.5-5.0 = ALBSERUM) BILITOT (test code 0.3 MG/DL 0.2-1.3 = BILITOT) AST (test code = 26 U/L 15-46 AST) PHOSALK (test code 112 U/L 38-126 = PHOSALK) ALT (test code = 36 U/L 13-69 ALT) GFR (test code = 54 A GFR of >9 0 GFR) mL/min/1.73m2 mL/min/1.73m2 is considered norm al. [id number] 11:27:00 Test Item Value Reference Range Interpretation Comments WBC (test code = 7.0 K/UL 3.5-10.9 WBC) RBC (test code = 4.45 M/UL 4.0-5.0 RBC) HGB (test code = 12.6 G/DL 11.5-15.5 HGB) HCT (test code = 39.0 % 34-46 HCT) MCV (test code = 87.6 FL 80-98 MCV) MCH (test code = 28.3 PG 28-32 MCH) MCHC (test code = 32.3 G/DL 32.5-36.5 L MCHC) RDW (test code = 13.5 % 11.5-14.5 RDW) PLT (test code = 233 K/UL 150-450 PLT) MPV (test code = 9.0 FL 7.4-10.4 MPV) MANDIFF (test code = NO MANDIFF) SCAN (test code = NO SCAN) NEUT% (test code = 56.1 % 40-75 NEUT%) LYMPH% (test code = 25.5 % 24-44 LYMPH%) MONO% (test code = 8.8 % 0-13 MONO%) EOS% (test code = 8.6 % 0-4 H EOS%) BASO % (test code = 0.9 % 0-2 BASO%) IG% (test code = 0.1 % 0-1 IG% = Metam yelocytes, IG%) Myelocytes, and Promyelocytes. (Immature neutr ophils not including " bands".) > 3% IG indic ates risk of sepsis NRBC% (test code = 0 /100 WBC NRBC%) ABS NEUT (test code 3.9 K/UL 1.2-7.2 = NEUT) [id number] 13:52:00 Test Item Value Reference Range Interpretation Comments SODIUM (test code = 139 MMOL/L 137-145 NA) K+ (test code = 4.9 MMOL/L 3.5-5.1 PLEASE NOTE NEW KSERUM) REFERENCE RANGE (S) IN EFFECT EFFECTIVE 010 - NEW ANALYZER (V ITROS 5600) CHLORIDE (test code 102 MMOL/L 98-107 = CL) CO2 (test code = 28 MMOL/L 22-30 CO2) BUN (test code = 11 MG/DL 7-17 BUN) CREA (test code = 0.9 MG/DL 0.7-1.2 CREA) GLUCOSE (test code 75 MG/DL 70-99 Fasting glucose = GLUCOSE) normal <100 MG/ DL- [employer] [employer] recommendation* * CALCIUM (test code 9.8 MG/DL 8.4-10.2 = CABLOOD) TOTPROT (test code 7.3 G/DL 6.3-8.2 = TOTPROT) ALBUMIN (test code 4.2 G/DL 3.5-5.0 = ALBSERUM) BILITOT (test code 0.3 MG/DL 0.2-1.3 = BILITOT) AST (test code = 30 U/L 15-46 AST) PHOSALK (test code 123 U/L 38-126 = PHOSALK) ALT (test code = 38 U/L 13-69 ALT) GFR (test code = 68 A GFR of >9 0 GFR) mL/min/1.73m2 mL/min/1.73m2 is considered norm al. [id number] 13:24:00 Test Item Value Reference Range Interpretation Comments WBC (test code = 7.7 K/UL 3.5-10.9 WBC) RBC (test code = 4.27 M/UL 4.0-5.0 RBC) HGB (test code = 12.1 G/DL 11.5-15.5 HGB) HCT (test code = 38.1 % 34-46 HCT) MCV (test code = 89.2 FL 80-98 MCV) MCH (test code = 28.3 PG 28-32 MCH) MCHC (test code = 31.8 G/DL 32.5-36.5 L MCHC) RDW (test code = 13.2 % 11.5-14.5 RDW) PLT (test code = 238 K/UL 150-450 PLT) MPV (test code = 9.2 FL 7.4-10.4 MPV) MANDIFF (test code = NO MANDIFF) SCAN (test code = NO SCAN) NEUT% (test code = 56.9 % 40-75 NEUT%) LYMPH% (test code = 24.0 % 24-44 LYMPH%) MONO% (test code = 8.8 % 0-13 MONO%) EOS% (test code = 9.6 % 0-4 H EOS%) BASO % (test code = 0.6 % 0-2 BASO%) IG% (test code = 0.1 % 0-1 IG% = Metam yelocytes, IG%) Myelocytes, and Promyelocytes. (Immature neutr ophils not including " bands".) > 3% IG indic ates risk of sepsis NRBC% (test code = 0 /100 WBC NRBC%) ABS NEUT (test code 4.4 K/UL 1.2-7.2 = NEUT) THYROXINE,[id number] 14:34:00 Test Item Value Reference Range Interpretation Comments T4 (test code = T4) 9.0 UG/DL 5.53-11.0 THYROID STIMULATION [id number] 14:34:00 Test Item Value Reference Range Interpretation Comments TSH (test code = TSH) 1.21 UIU/ML 0.465-4.68 [id number] 14:34:00 Test Item Value Reference Range Interpretation Comments SODIUM (test code = 137 MMOL/L 137-145 NA) K+ (test code = 4.4 MMOL/L 3.5-5.1 PLEASE NOTE NEW KSERUM) REFERENCE RANGE (S) IN EFFECT EFFECTIVE 010 - NEW ANALYZER (V ITROS 5600) CHLORIDE (test code 101 MMOL/L 98-107 = CL) CO2 (test code = 28 MMOL/L 22-30 CO2) BUN (test code = 15 MG/DL 7-17 BUN) CREA (test code = 1.0 MG/DL 0.7-1.2 CREA) GLUCOSE (test code 86 MG/DL 70-99 Fasting glucose = GLUCOSE) normal <100 MG/ DL- [employer] recommendation* * CALCIUM (test code 9.7 MG/DL 8.4-10.2 = CABLOOD) TOTPROT (test code 7.5 G/DL 6.3-8.2 = TOTPROT) ALBUMIN (test code 4.1 G/DL 3.5-5.0 = ALBSERUM) BILITOT (test code 0.6 MG/DL 0.2-1.3 = BILITOT) AST (test code = 26 U/L 15-46 AST) PHOSALK (test code 115 U/L 38-126 = PHOSALK) ALT (test code = 32 U/L 13-69 ALT) GFR (test code = 60 A GFR of >9 0 GFR) mL/min/1.73m2 mL/min/1.73m2 is considered norm al. [id number] 13:35:00 Test Item Value Reference Range Interpretation Comments WBC (test code = 10.2 K/UL 3.5-10.9 WBC) RBC (test code = 4.03 M/UL 4.0-5.0 RBC) HGB (test code = 11.9 G/DL 11.5-15.5 HGB) HCT (test code = 36.0 % 34-46 HCT) MCV (test code = 89.3 FL 80-98 MCV) MCH (test code = 29.5 PG 28-32 MCH) MCHC (test code = 33.1 G/DL 32.5-36.5 MCHC) RDW (test code = 13.8 % 11.5-14.5 RDW) PLT (test code = 306 K/UL 150-450 PLT) MPV (test code = 9.0 FL 7.4-10.4 MPV) MANDIFF (test code = NO MANDIFF) SCAN (test code = NO SCAN) NEUT% (test code = 64.6 % 40-75 NEUT%) LYMPH% (test code = 17.4 % 24-44 L LYMPH%) MONO% (test code = 7.4 % 0-13 MONO%) EOS% (test code = 9.7 % 0-4 H EOS%) BASO % (test code = 0.7 % 0-2 BASO%) IG% (test code = 0.2 % 0-1 IG% = Metam yelocytes, IG%) Myelocytes, and Promyelocytes. (Immature neutr ophils not including " bands".) > 3% IG indic ates risk of sepsis NRBC% (test code = 0 /100 WBC NRBC%) ABS NEUT (test code 6.6 K/UL 1.2-7.2 = NEUT) PET/CT ET SUBSEQUENT [id number] 14:48:[address] [id number] IMAGING REPORTPatient Name: Fiona CARMEN of Service: [id number]: [id number] Sex: F Order #: [id number] Room: OPEDOB: 1955 X-Ray Number: [id number] Record Number: [id number] Hospital Number: [id number] Physician: LIBRADO THOMPSON - Ordering Physician: LIBRADO THOMPSON -PET imaging with CT,March 14, 2018.HISTORY:Right-sided lung cancer.TECHNIQUE: Following the intravenous administration of11.2 millicuries F 18FDG, multiple tomographic images of the brain are performed. 3-D MIP imagesare reviewed. Noncontrast CT was also performed for attenuation correctionand lesion localization. Glucose level is85 milligrams per deciliter.COMPARISON:December 23, 2017.FINDINGS:There are strandy appearing nodular foci involving both lungs, thisprominence has increased somewhat from the prior study. There is an area inthe right upper lobe which is triangular in appearance and measuresproximally 9 mm, (4.1 SUV).There is a linear focus involving the right lower lobe along the majorfissure, estimated at 2 cm, (4.0 SUV).There is irregular nodularity involving the subpleural left lung measuring8 mm, (2.5 SUV.There isno suspicious appearing hilar or mediastinal adenopathy.The heart is mildly enlarged.There is no evidence of significant abnormal metabolic activity seen belowthe level of the diaphragm.Impression:Nodular appearing foci scattered throughout both lungs. The distributionwas similar to that which have been seen previously, the nodularity howeveris increased. There is several foci which demonstrate metabolic activityabove the neoplastic threshold. Most of these areas are ill- defined.There is no other evidence neoplasm seen involving the chest, abdomen, orpelvis. Correlate clinically.Electronically Signed By: Vadim Robles M.D., 03/14/2018 2:46 PMLegally authenticated by GERARD Ayala 2018-03-14 14:46:22WHOLE BLOOD [id number] 08:16:00 Test Item Value Reference Range Interpretation Comments WHOLE BLOOD GLUCOSE 85 mg/dL 70-99 Fastin g glucose (test code = POC GLU) normal <100 MG/DL- [employer] recommendation* * [id number] 15:16:00 Test Item Value Reference Range Interpretation Comments SODIUM (test code = 137 MMOL/L 137-145 NA) K+ (test code = 3.9 MMOL/L 3.5-5.1 PLEASE NOTE NEW KSERUM) REFERENCE RANGE (S) IN EFFECT EFFECTIVE 010 - NEW ANALYZER (V ITROS 5600) CHLORIDE (test code 98 MMOL/L 98-107 = CL) CO2 (test code = 29 MMOL/L 22-30 CO2) BUN (test code = 12 MG/DL 7-17 BUN) CREA (test code = 0.9 MG/DL 0.7-1.2 CREA) GLUCOSE (test code 99 MG/DL 70-99 Fasting glucose = GLUCOSE) normal <100 MG/ DL- [employer] recommendation* * CALCIUM (test code 9.2 MG/DL 8.4-10.2 = CABLOOD) TOTPROT (test code 7.2 G/DL 6.3-8.2 = TOTPROT) ALBUMIN (test code 4.0 G/DL 3.5-5.0 = ALBSERUM) BILITOT (test code 0.5 MG/DL 0.2-1.3 = BILITOT) AST (test code = 31 U/L 15-46 AST) PHOSALK (test code 107 U/L 38-126 = PHOSALK) ALT (test code = 41 U/L 13-69 ALT) GFR (test code = 68 A GFR of >9 0 GFR) mL/min/1.73m2 mL/min/1.73m2 is considered norm al. [id number] 14:04:00 Test Item Value Reference Range Interpretation Comments WBC (test code = 7.7 K/UL 3.5-10.9 WBC) RBC (test code = 4.00 M/UL 4.0-5.0 RBC) HGB (test code = 11.7 G/DL 11.5-15.5 HGB) HCT (test code = 35.6 % 34-46 HCT) MCV (test code = 89.0 FL 80-98 MCV) MCH (test code = 29.3 PG 28-32 MCH) MCHC (test code = 32.9 G/DL 32.5-36.5 MCHC) RDW (test code = 15.5 % 11.5-14.5 H RDW) PLT (test code = 221 K/UL 150-450 PLT) MPV (test code = 9.0 FL 7.4-10.4 MPV) MANDIFF (test code = NO MANDIFF) SCAN (test code = NO SCAN) NEUT% (test code = 67.4 % 40-75 NEUT%) LYMPH% (test code = 16.1 % 24-44 L LYMPH%) MONO% (test code = 8.5 % 0-13 MONO%) EOS% (test code = 7.2 % 0-4 H EOS%) BASO % (test code = 0.5 % 0-2 BASO%) IG% (test code = 0.3 % 0-1 IG% = Metam yelocytes, IG%) Myelocytes, and Promyelocytes. (Immature neutr ophils not including " bands".) > 3% IG indic ates risk of sepsis NRBC% (test code = 0 /100 WBC NRBC%) ABS NEUT (test code 5.2 K/UL 1.2-7.2 = NEUT) [id number] 18:40:00 Test Item Value Reference Range Interpretation Comments SODIUM (test code = 140 MMOL/L 137-145 NA) K+ (test code = 5.1 MMOL/L 3.5-5.1 PLEASE NOTE NEW KSERUM) REFERENCE RANGE (S) IN EFFECT EFFECTIVE 010 - NEW ANALYZER (V ITROS 5600) CHLORIDE (test code 100 MMOL/L 98-107 = CL) CO2 (test code = 29 MMOL/L 22-30 CO2) BUN (test code = 15 MG/DL 7-17 BUN) CREA (test code = 1.0 MG/DL 0.7-1.2 CREA) GLUCOSE (test code 60 MG/DL 70-99 L Fasting glucose = GLUCOSE) normal <100 MG/ DL- [employer] recommendation* * CALCIUM (test code 10.1 MG/DL 8.4-10.2 = CABLOOD) TOTPROT (test code 7.9 G/DL 6.3-8.2 = TOTPROT) ALBUMIN (test code 4.4 G/DL 3.5-5.0 = ALBSERUM) BILITOT (test code 0.5 MG/DL 0.2-1.3 = BILITOT) AST (test code = 25 U/L 15-46 AST) PHOSALK (test code 114 U/L 38-126 = PHOSALK) ALT (test code = 38 U/L 13-69 ALT) GFR (test code = 60 A GFR of >9 0 GFR) mL/min/1.73m2 mL/min/1.73m2 is considered norm al. [id number] 17:44:00 Test Item Value Reference Range Interpretation Comments WBC (test code = 10.0 K/UL 3.5-10.9 WBC) RBC (test code = 4.21 M/UL 4.0-5.0 RBC) HGB (test code = 12.0 G/DL 11.5-15.5 HGB) HCT (test code = 37.9 % 34-46 HCT) MCV (test code = 90.0 FL 80-98 MCV) MCH (test code = 28.5 PG 28-32 MCH) MCHC (test code = 31.7 G/DL 32.5-36.5 L MCHC) RDW (test code = 15.9 % 11.5-14.5 H RDW) PLT (test code = 290 K/UL 150-450 PLT) MPV (test code = 9.0 FL 7.4-10.4 MPV) MANDIFF (test code = NO MANDIFF) SCAN (test code = NO SCAN) NEUT% (test code = 67.6 % 40-75 NEUT%) LYMPH% (test code = 18.7 % 24-44 L LYMPH%) MONO% (test code = 9.6 % 0-13 MONO%) EOS% (test code = 3.1 % 0-4 EOS%) BASO % (test code = 0.7 % 0-2 BASO%) IG% (test code = 0.3 % 0-1 IG% = Metam yelocytes, IG%) Myelocytes, and Promyelocytes. (Immature neutr ophils not including " bands".) > 3% IG indic ates risk of sepsis NRBC% (test code = 0 /100 WBC NRBC%) ABS NEUT (test code 6.7 K/UL 1.2-7.2 = NEUT) XR SPINE, LUMBAR [id number] 11:41:24XR SPINE, LUMBAR 2-3VHISTORY: Lumbar disc displacement with sciaticaCOMPARISON: None availableTECHNIQUE: 2 intraoperative fluoroscopic spot views of the lumbar spineare provided. 22 seconds fluoroscopyutilized along with 1 mLIsovue-200.IMPRESSION: Dorsal spinal needle is seen projecting over thethoracolumbar spine regarding reported T12-L1 epidural injection. Pleasesee operative report for further details.[id number] 17:37:00 Test Item Value Reference Range Interpretation Comments SODIUM (test code = 141 MMOL/L 137-145 NA) K+ (test code = 5.1 MMOL/L 3.5-5.1 PLEASE NOTE NEW KSERUM) REFERENCE RANGE (S) IN EFFECT EFFECTIVE 010 - NEW ANALYZER (V ITROS 5600) CHLORIDE (test code 101 MMOL/L 98-107 = CL) CO2 (test code = 28 MMOL/L 22-30 CO2) BUN (test code = 10 MG/DL 7-17 BUN) CREA (test code = 1.0 MG/DL 0.7-1.2 CREA) GLUCOSE (test code 80 MG/DL 70-99 Fasting glucose = GLUCOSE) normal <100 MG/ DL- [employer] recommendation* * CALCIUM (test code 10.5 MG/DL 8.4-10.2 H = CABLOOD) TOTPROT (test code 8.1 G/DL 6.3-8.2 = TOTPROT) ALBUMIN (test code 4.4 G/DL 3.5-5.0 = ALBSERUM) BILITOT (test code 0.6 MG/DL 0.2-1.3 = BILITOT) AST (test code = 49 U/L 15-46 H AST) PHOSALK (test code 140 U/L 38-126 H = PHOSALK) ALT (test code = 63 U/L 13-69 ALT) GFR (test code = 60 A GFR of >9 0 GFR) mL/min/1.73m2 mL/min/1.73m2 is considered norm al. [id number] 16:42:00 Test Item Value Reference Range Interpretation Comments WBC (test code = 8.5 K/UL 3.5-10.9 WBC) RBC (test code = 4.30 M/UL 4.0-5.0 RBC) HGB (test code = 12.3 G/DL 11.5-15.5 HGB) HCT (test code = 38.4 % 34-46 HCT) MCV (test code = 89.3 FL 80-98 MCV) MCH (test code = 28.6 PG 28-32 MCH) MCHC (test code = 32.0 G/DL 32.5-36.5 L MCHC) RDW (test code = 16.2 % 11.5-14.5 H RDW) PLT (test code = 273 K/UL 150-450 PLT) MPV (test code = 8.7 FL 7.4-10.4 MPV) MANDIFF (test code = NO MANDIFF) SCAN (test code = NO SCAN) NEUT% (test code = 57.9 % 40-75 NEUT%) LYMPH% (test code = 24.1 % 24-44 LYMPH%) MONO% (test code = 8.1 % 0-13 MONO%) EOS% (test code = 8.9 % 0-4 H EOS%) BASO % (test code = 0.8 % 0-2 BASO%) IG% (test code = 0.2 % 0-1 IG% = Metam yelocytes, IG%) Myelocytes, and Promyelocytes. (Immature neutr ophils not including " bands".) > 3% IG indic ates risk of sepsis NRBC% (test code = 0 /100 WBC NRBC%) ABS NEUT (test code 4.9 K/UL 1.2-7.2 = NEUT) FREE K AND L LIGHT CHAIN [id number] 10:20:00 Test Item Value Reference Range Interpretation Comments FREE KAPPA LT CHAIN (test code = 31.5 mg/l 3.3-19.4 H FRKLTCH) FREE LAMBDA LT CHAINS (test code = 18.9 mg/l 5.7-26.3 FRLLTCH) KAPPA/LAMBDA RATIO (test code = K/L 1.67 0.26-1.65 H RATI) TESTING PERFORMED AT [facility] [id number] [place], [place] [address]ZSY [id number] 01:31:00 Test Item Value Reference Range Interpretation Comments IGG (test code = IGGS) 1300 mg/dL 700-1600 IGA [id number] 01:31:00 Test Item Value Reference Range Interpretation Comments IGA (test code = IGAS) 117 mg/dL 70-400 IGM [id number] 01:31:00 Test Item Value Reference Range Interpretation Comments IGM (test code = IGMS) 273 mg/dL 40-230 H SEDIMENTATION [id number] 13:18:00 Test Item Value Reference Range Interpretation Comments SED RATE (test code = ESR) 70 MM/HR 0-20 H [id number] 12:35:00 Test Item Value Reference Range Interpretation Comments SODIUM (test code = 138 MMOL/L 137-145 NA) K+ (test code = 4.6 MMOL/L 3.5-5.1 PLEASE NOTE NEW KSERUM) REFERENCE RANGE (S) IN EFFECT EFFECTIVE 010 - NEW ANALYZER (V ITROS 5600) CHLORIDE (test code 97 MMOL/L 98-107 L = CL) CO2 (test code = 30 MMOL/L 22-30 CO2) BUN (test code = 10 MG/DL 7-17 BUN) CREA (test code = 0.9 MG/DL 0.7-1.2 CREA) GLUCOSE (test code 93 MG/DL 70-99 Fasting glucose = GLUCOSE) normal <100 MG/ DL- [employer] recommendation* * CALCIUM (test code 10.0 MG/DL 8.4-10.2 = CABLOOD) TOTPROT (test code 7.5 G/DL 6.3-8.2 = TOTPROT) ALBUMIN (test code 4.2 G/DL 3.5-5.0 = ALBSERUM) BILITOT (test code 0.4 MG/DL 0.2-1.3 = BILITOT) AST (test code = 26 U/L 15-46 AST) PHOSALK (test code 119 U/L 38-126 = PHOSALK) ALT (test code = 36 U/L 13-69 ALT) GFR (test code = 68 A GFR of >9 0 GFR) mL/min/1.73m2 mL/min/1.73m2 is considered norm al. [id number] 11:22:00 Test Item Value Reference Range Interpretation Comments WBC (test code = 8.9 K/UL 3.5-10.9 WBC) RBC (test code = 3.95 M/UL 4.0-5.0 L RBC) HGB (test code = 11.1 G/DL 11.5-15.5 L HGB) HCT (test code = 34.8 % 34-46 HCT) MCV (test code = 88.1 FL 80-98 MCV) MCH (test code = 28.1 PG 28-32 MCH) MCHC (test code = 31.9 G/DL 32.5-36.5 L MCHC) RDW (test code = 16.3 % 11.5-14.5 H RDW) PLT (test code = 270 K/UL 150-450 PLT) MPV (test code = 8.8 FL 7.4-10.4 MPV) MANDIFF (test code = NO MANDIFF) SCAN (test code = NO SCAN) NEUT% (test code = 68.7 % 40-75 NEUT%) LYMPH% (test code = 15.1 % 24-44 L LYMPH%) MONO% (test code = 7.7 % 0-13 MONO%) EOS% (test code = 7.4 % 0-4 H EOS%) BASO % (test code = 0.6 % 0-2 BASO%) IG% (test code = 0.5 % 0-1 IG% = Metam yelocytes, IG%) Myelocytes, and Promyelocytes. (Immature neutr ophils not including " bands".) > 3% IG indic ates risk of sepsis NRBC% (test code = 0 /100 WBC NRBC%) ABS NEUT (test code 6.1 K/UL 1.2-7.2 = NEUT) [id number] 17:48:00 Test Item Value Reference Range Interpretation Comments SODIUM (test code = 136 MMOL/L 137-145 L NA) K+ (test code = 3.9 MMOL/L 3.5-5.1 PLEASE NOTE NEW KSERUM) REFERENCE RANGE (S) IN EFFECT EFFECTIVE 010 - NEW ANALYZER (V ITROS 5600) CHLORIDE (test code 94 MMOL/L 98-107 L = CL) CO2 (test code = 30 MMOL/L 22-30 CO2) BUN (test code = 16 MG/DL 7-17 BUN) CREA (test code = 1.2 MG/DL 0.7-1.2 CREA) GLUCOSE (test code 106 MG/DL 70-99 H Fasting glucose = GLUCOSE) normal <100 MG/ DL- [employer] recommendation* * CALCIUM (test code 10.0 MG/DL 8.4-10.2 = CABLOOD) TOTPROT (test code 8.3 G/DL 6.3-8.2 H = TOTPROT) ALBUMIN (test code 4.4 G/DL 3.5-5.0 = ALBSERUM) BILITOT (test code 0.4 MG/DL 0.2-1.3 = BILITOT) AST (test code = 38 U/L 15-46 AST) PHOSALK (test code 129 U/L 38-126 H = PHOSALK) ALT (test code = 41 U/L 13-69 ALT) GFR (test code = 49 A GFR of >9 0 GFR) mL/min/1.73m2 mL/min/1.73m2 is considered norm al. [id number] 16:46:00 Test Item Value Reference Range Interpretation Comments WBC (test code = 8.0 K/UL 3.5-10.9 WBC) RBC (test code = 3.97 M/UL 4.0-5.0 L RBC) HGB (test code = 11.1 G/DL 11.5-15.5 L HGB) HCT (test code = 33.9 % 34-46 L HCT) MCV (test code = 85.4 FL 80-98 MCV) MCH (test code = 28.0 PG 28-32 MCH) MCHC (test code = 32.7 G/DL 32.5-36.5 MCHC) RDW (test code = 15.5 % 11.5-14.5 H RDW) PLT (test code = 250 K/UL 150-450 PLT) MPV (test code = 8.8 FL 7.4-10.4 MPV) MANDIFF (test code = NO MANDIFF) SCAN (test code = NO SCAN) NEUT% (test code = 61.2 % 40-75 NEUT%) LYMPH% (test code = 23.3 % 24-44 L LYMPH%) MONO% (test code = 8.5 % 0-13 MONO%) EOS% (test code = 5.9 % 0-4 H EOS%) BASO % (test code = 0.6 % 0-2 BASO%) IG% (test code = 0.5 % 0-1 IG% = Metam yelocytes, IG%) Myelocytes, and Promyelocytes. (Immature neutr ophils not including " bands".) > 3% IG indic ates risk of sepsis NRBC% (test code = 0 /100 WBC NRBC%) ABS NEUT (test code 4.9 K/UL 1.2-7.2 = NEUT) ECHO COMPLETE [id number] 06:35:00Version [address] [place], [place] [address] HOSPITALECHOCARDIOGRAM REPORTName: AZAM CARMEN Study Date: 10/14/2017 03:45 PMMRN: [id number] Patient Location: T3\\S\\3326\\S\\ADOB: 1955 (M/d/yyyy) Gender: FemaleAge: 62 yrs Ethnicity: WHeight: 62 in Weight: 168 lbBSA: 1.8 v9Ksrzhd For Study: CHEST PAINHistory: NON-SMALL CELL RIGHT LOWER LOBE LUNG CA/HEADACES/COPD/GERD/SMOKERProceduresA complete two-dimensional transthoracic echocardiogram was performed (2D,M-mode, Doppler and color flow Dopple r).MMode/2D Measurements and CalculationsRVDd: 2.0 cm LVIDd: 4.4 cmIVSd: 1.1 cm LVIDs: 3.0 cmIVSs: 1.5 cm LVPWd: 1.1 cmLVPWs: 1.3 cm_ FS: 32.7 % % IVS thick: 29.6 %EDV(Teich): 88.6 mlESV(Teich): 34.3 mlEF(Teich): 61.3 % CO(Teich): 5.4 l/min EPSS: 0.51 cmSV(Teich): 54.3 ml MV excursion: 1.9 cmMV E-F slope: 4.3 cm/sec Ao root diam: 3.5 cm EDV(MOD-sp4): 67.1 mlESV(MOD-sp4): 25.4 mlAo root area: 9.5 cm2 EF(MOD-sp4): 62.1 %ACS: 2.2 cmLA dimension: 4.5 cm CO(MOD-sp4): 4.2 l/minSV(MOD-sp4): 41.7 mlTime MeasurementsMM R-R int: 0.60 secMM HR: 99.9 BPMDoppler Measurements and CalculationsMV E max william: 98.4 cm/sec MV P1/2t max william: 100.2 cm/secMV A max william: 114.6 cm/sec MV P1/2t: 43.8 msecMV E/A: 0.86 MVA(P1/2t): 5.0 cm2MV dec slope: 670.6 cm/sec2MV dec time: 0.14 sec Ao V2 max: 157.8 cm/sec AI max william: 431.0 cm/secAo max P.0 mmHg AI max P.3 mmHgAI dec slope: 307.9 cm/sec2AI P1/2t: 410.0 msec MR max william: 506.7 cm/sec TR max P.1 mmHgMR max P.7 mmHg RVSP(TR): 39.1 mmHg RAP systole: 10.0 mmHgLeft VentricleThe left ventricle is normal in size. There is no thrombus. There is noventricular septal defect visualized. There is normal left ventricular wallthickness. The transmitral spectral Doppler flow pattern is suggestive ofimpaired LV relaxation. Ejection Fraction = 60-65%.AtriaThe left atrium is moderately dilated.Mitral ValveThereis mild mitral regurgitation.Tricuspid ValveRight ventricular systolic pressure is 35-40mmHg. No tricuspidregurgitation.Aortic ValveNo hemodynamically significant valvular aortic stenosis. Mild aorticregurgitation.Great VesselsThe aortic root is normal size.Pericardium/PleuralThere is no pericardial effusion.Interpretation SummaryEjection Fraction = 60-65%.The transmitral spectral Doppler flow pattern is suggestive of impaired LVrelaxation.The left atrium is moderately dilated.Mild aortic regurgitation.Right ventricular systolic pressure is 35-40mmHg. Reading Physician: Nigel Robison MD 12/31/2017Electronically signed by: 06:35 AMOrdering Physician: Nigel Robison MDReferringPhysician: WILFRED KATEPerformed By: Lucero [id number] 11:01:00 Test Item Value Reference Range Interpretation Comments SODIUM (test code = 142 MMOL/L 137-145 NA) K+ (test code = 5.4 MMOL/L 3.5-5.1 H PLEASE NOTE NEW KSERUM) REFERENCE RANGE (S) IN EFFECT EFFECTIVE 010 - NEW ANALYZER (V ITROS 5600) CHLORIDE (test code 103 MMOL/L 98-107 = CL) CO2 (test code = 28 MMOL/L 22-30 CO2) BUN (test code = 15 MG/DL 7-17 BUN) CREA (test code = 1.1 MG/DL 0.7-1.2 CREA) GLUCOSE (test code 88 MG/DL 70-99 Fasting glucose = GLUCOSE) normal <100 MG/ DL- [employer] recommendation* * CALCIUM (test code 10.4 MG/DL 8.4-10.2 H = CABLOOD) TOTPROT (test code 7.5 G/DL 6.3-8.2 = TOTPROT) ALBUMIN (test code 4.1 G/DL 3.5-5.0 = ALBSERUM) BILITOT (test code 0.4 MG/DL 0.2-1.3 = BILITOT) AST (test code = 25 U/L 15-46 AST) PHOSALK (test code 126 U/L 38-126 = PHOSALK) ALT (test code = 31 U/L 13-69 ALT) GFR (test code = 54 A GFR of >9 0 GFR) mL/min/1.73m2 mL/min/1.73m2 is considered norm al. THYROID STIMULATION [id number] 11:01:00 Test Item Value Reference Range Interpretation Comments TSH (test code = TSH) 2.01 UIU/ML 0.465-4.68 [id number] 09:53:00 Test Item Value Reference Range Interpretation Comments WBC (test code = 8.6 K/UL 3.5-10.9 WBC) RBC (test code = 3.82 M/UL 4.0-5.0 L RBC) HGB (test code = 10.6 G/DL 11.5-15.5 L HGB) HCT (test code = 33.9 % 34-46 L HCT) MCV (test code = 88.7 FL 80-98 MCV) MCH (test code = 27.7 PG 28-32 L MCH) MCHC (test code = 31.3 G/DL 32.5-36.5 L MCHC) RDW (test code = 15.8 % 11.5-14.5 H RDW) PLT (test code = 250 K/UL 150-450 PLT) MPV (test code = 8.6 FL 7.4-10.4 MPV) MANDIFF (test code = NO MANDIFF) SCAN (test code = NO SCAN) NEUT% (test code = 74.0 % 40-75 NEUT%) LYMPH% (test code = 13.0 % 24-44 L LYMPH%) MONO% (test code = 7.6 % 0-13 MONO%) EOS% (test code = 4.9 % 0-4 H EOS%) BASO % (test code = 0.3 % 0-2 BASO%) IG% (test code = 0.2 % 0-1 IG% = Metam yelocytes, IG%) Myelocytes, and Promyelocytes. (Immature neutr ophils not including " bands".) > 3% IG indic ates risk of sepsis NRBC% (test code = 0 /100 WBC NRBC%) ABS NEUT (test code 6.4 K/UL 1.2-7.2 = NEUT) PET/CT ET SUBSEQUENT [id number] 14:07:[address] [id number] IMAGING REPORTPatient Name: Fiona CARMEN of Service: [id number]: 62 Sex: F Order #: [id number] Room: OPEDOB: 1955 X-Ray Number: [id number] Record Number: [id number] Hospital Number: [id number] Physician: LIBRADO THOMPSON - Ordering Physician: LIBRADO THOMPSON -PET imaging with CT,2017.HISTORY:Lung cancer.TECHNIQUE: Following the intravenous administration of1.5 millicuries F 18FDG, multiple tomographic images of the brain are performed. 3-D MIP imagesare reviewed. Noncontrast CT was also performed for attenuation correctionand lesion localization. Glucose level is77 milligrams per deciliter.COMPARISON:July 01, 2017.FINDINGS:Possible metastatic adenopathy involving theinferior left supraclavicularneck, 1.7 cm level 4 cervical lymph node, (5.0 SUV).Significant interval improvement from the June 2017 exam.Residual foci of increased metabolic activity noted in theposterior aspectof the right infrahilar region, 1.4 cm (4.7 SUV) and within an irregularnodule in the right lower lobe measuring 1 cm, (5.5 SUV).Previously noted suspected osseous metastatic disease involving left ribsis no longer identified.Salient other CT localization findings include prior cholecystectomy andscattered mild vascular disease.Impression:Significant interval improvement from the June 2017 exam.Small foci of residual metabolic activity associated with the right lowerlobe, right infrahilar mediastinum, and left supraclavicular region asdiscussed.Electronically Signed By: Demi Robles M.D., 12/23/2017 2:04 PMLegally authenticated by GERARD Ayala 2017-12-23 14:04:24WHOLE BLOOD [id number] 11:17:00 Test Item Value Reference Range Interpretation Comments WHOLE BLOOD GLUCOSE 77 mg/dL 70-99 Fastin g glucose (test code = POC GLU) normal <100 MG/DL- [employer] recommendation* * MRI LUMBAR W/O [id number] 16:02:[address] [id number] IMAGING REPORTPatient Name: Fiona CARMEN of Service: [id number]: 62 Sex: F Order #: [id number] Room: OPEDOB: 1955 X-Ray Number: [id number] Record Number: [id number] Hospital Number: [id number] Physician: RADHA CALLEJASOrdering Physician: COLIN CALLEJAS CERVICAL SPINE WITHOUT CONTRAST 12/20/2017HISTORY: Lung cancer, back pain.COMPARISON: Same day x-rays.FINDINGS: No fracture, dislocation or significant subluxation is observed.No metastatic-type process is identified.Vertebral body and disc space heights are fairly well- maintained withminimal anterior osteophytes at multiple mid and lower cervical levels.Prevertebral soft tissues and spinal cord signal are normal.The craniocervical junction and C1-2 levels are unremarkable.There is minimal disc bulge at C2-3 withoutsignificant spinal stenosis andneural foramina are patent. Similar findings are seen at C3-4, 4-5 and 5-6.Other cervical disc levels are normal.IMPRESSION:Mild cervical spine degenerative changes without other suspicious acuteprocess.MR THORACIC SPINE WITHOUT CONTRASTHISTORY: As above.COMPARISON: Sameday x-rays and prior CTA chest of 10/14/2017.Multiple hemangiomata are scattered throughout spine. Severe compressiondeformity at T11 is chronic.No definite acute fracture or significant subluxation inthe thoracicspine. Spinal cord signal is normal.Other vertebral body and disc space heights are fairly well-maintained.Minimal anterior osteophytes are noted at a few levels. No significant discherniation or spinal stenosis is seen in the thoracic spine. There isminimal retropulsion of the T11 vertebral body without high-grade spinalstenosis. Minimal disc bulges are seen at T10-11 and T11-12.IMPRESSION:No acute process with chronic appearing findings as discussed.MR LUMBAR SPINE WITHOUT CONTRAST 12/20/2017HISTORY: As above.COMPARISON: Same day x-rays and prior MRI of 09/10/2017Five lumbar levels are present. There is severe compression deformity at L1once again with retropulsion of bony fragmentsthat is producing borderlinespinal stenosis. Crwq-gt-unsplhbh compression deformity is again noted atL3. Other vertebral body heights are fairly well-maintained.Imaging is limited due to motion artifact.The L1-2 disc is maintained. Minimal disc bulge is seen at L2-3 withouthigh-grade spinal stenosis. There is question of minimal foraminalnarrowing.Broad-based disc bulge at L3-4 does not produce high-grade spinal stenosis.Mild bilateral foraminal narrowing is observed.Minimal disc bulge is also seen at L4-5 without significant spinalstenosis. Mild ligamentum flavum and facet hypertrophic changes arepresent. Neural foramina are patent.Minimal disc bulge is seen at L5- S1 without significant spinal stenosis.Neural foramina are patent.IMPRESSION:Predominantly chronic appearing lumbar spine findings as discussed. Slightretropulsion of bony fragments at L1 is slightly more pronounced than onthe prior MRI. Please see the above extensive description.THANK YOU FOR YOUR OUTPATIENT REFERRALjhbLegally authenticated by GABY SINGH 2017-12-20 15:59:36[address] [id number] IMAGING REPORTPatient Name: Fiona CARMEN of Service: [id number]: 62 Sex: F Order #: [id number] Room: OPEDOB: 1955 X-Ray Number: [id number] Record Number: [id number] Hospital Number: [id number] Physician: Janusz CALLEJAS Physician: RADHA CALLEJASElectronically Signed By: Ghassan Kenyon M.D., 12/20/2017 3:59 PMLegally authenticatedby GABY SINGH 2017-12-20 15:59:36MRI C- SPINE W/O [id number] 16:02:[address] [id number] IMAGING REPORTPatient Name: Fiona CARMEN of Service: [id number]: 62 Sex: F Order #: [id number] Room: OPEDOB: 1955 X-Ray Number: [id number] Record Number: [id number] Hospital Number: [id number] Physician: Janusz CALLEJAS Physician: COLIN CALLEJAS CERVICAL SPINE WITHOUT CONTRAST 12/20/2017HISTORY: Lung cancer, back pain.COMPARISON: Same day x-rays.FINDINGS: No fracture, dislocation or significant subluxation is observed.No metastatic-type process is identified.Vertebral body and disc space heights are fairly well- maintained withminimal anterior osteophytes at multiple mid and lower cervical levels.Prevertebral soft tissues and spinal cord signal are normal.The craniocervical junction and C1-2 levels are unremarkable.There is minimal disc bulge at C2-3 withoutsignificant spinal stenosis andneural foramina are patent. Similar findings are seen at C3-4, 4-5 and 5-6.Other cervical disc levels are normal.IMPRESSION:Mild cervical spine degenerative changes without other suspicious acuteprocess.MR THORACIC SPINE WITHOUT CONTRASTHISTORY: As above.COMPARISON: Sameday x-rays and prior CTA chest of 10/14/2017.Multiple hemangiomata are scattered throughout spine. Severe compressiondeformity at T11 is chronic.No definite acute fracture or significant subluxation inthe thoracicspine. Spinal cord signal is normal.Other vertebral body and disc space heights are fairly well-maintained.Minimal anterior osteophytes are noted at a few levels. No significant discherniation or spinal stenosis is seen in the thoracic spine. There isminimal retropulsion of the T11 vertebral body without high-grade spinalstenosis. Minimal disc bulges are seen at T10-11 and T11-12.IMPRESSION:No acute process with chronic appearing findings as discussed.MR LUMBAR SPINE WITHOUT CONTRAST 12/20/2017HISTORY: As above.COMPARISON: Same day x-rays and prior MRI of 09/10/2017Five lumbar levels are present. There is severe compression deformity at L1once again with retropulsion of bony fragmentsthat is producing borderlinespinal stenosis. Npku-wj-ogvqzaca compression deformity is again noted atL3. Other vertebral body heights are fairly well-maintained.Imaging is limited due to motion artifact.The L1-2 disc is maintained. Minimal disc bulge is seen at L2-3 withouthigh-grade spinal stenosis. There is question of minimal foraminalnarrowing.Broad-based disc bulge at L3-4 does not produce high-grade spinal stenosis.Mild bilateral foraminal narrowing is observed.Minimal disc bulge is also seen at L4-5 without significant spinalstenosis. Mild ligamentum flavum and facet hypertrophic changes arepresent. Neural foramina are patent.Minimal disc bulge is seen at L5- S1 without significant spinal stenosis.Neural foramina are patent.IMPRESSION:Predominantly chronic appearing lumbar spine findings as discussed. Slightretropulsion of bony fragments at L1 is slightly more pronounced than onthe prior MRI. Please see the above extensive description.THANK YOU FOR YOUR OUTPATIENT REFERRALjhbLegally authenticated by GABY SINGH 2017-12-20 15:59:36[place] [id number] IMAGING REPORTPatient Name: Fiona CARMEN of Service: [id number]: 62 Sex: F Order #: 400 Room: OPEDOB: 1955 X-Ray Number: [id number] Record Number: [id number] Hospital Number: [id number] Physician: RADHA CALLEJASOrdering Physician: RADHA CALLEJASElectronically Signed By: Ghassan Kenyon M.D., 12/20/2017 3:59 PMLegally authenticatedby GABY SINGH 2017-12-20 15:59:36MRI THORAC W/O [id number] 16:01:00[place] [id number] IMAGING REPORTPatient Name: Fiona CARMEN of Service: [id number]: 62 Sex: F Order #: 500 Room: OPEDOB: 1955 X-Ray Number: [id number] Record Number: [id number] Hospital Number: [id number] Physician: RADHA CALLEJASOrdering Physician: COLIN CALLEJAS CERVICAL SPINE WITHOUT CONTRAST 12/20/2017HISTORY: Lung cancer, back pain.COMPARISON: Same day x-rays.FINDINGS: No fracture, dislocation or significant subluxation is observed.No metastatic-type process is identified.Vertebral body and disc space heights are fairly well- maintained withminimal anterior osteophytes at multiple mid and lower cervical levels.Prevertebral soft tissues and spinal cord signal are normal.The craniocervical junction and C1-2 levels are unremarkable.There is minimal disc bulge at C2-3 withoutsignificant spinal stenosis andneural foramina are patent. Similar findings are seen at C3-4, 4-5 and 5-6.Other cervical disc levels are normal.IMPRESSION:Mild cervical spine degenerative changes without other suspicious acuteprocess.MR THORACIC SPINE WITHOUT CONTRASTHISTORY: As above.COMPARISON: Sameday x-rays and prior CTA chest of 10/14/2017.Multiple hemangiomata are scattered throughout spine. Severe compressiondeformity at T11 is chronic.No definite acute fracture or significant subluxation inthe thoracicspine. Spinal cord signal is normal.Other vertebral body and disc space heights are fairly well-maintained.Minimal anterior osteophytes are noted at a few levels. No significant discherniation or spinal stenosis is seen in the thoracic spine. There isminimal retropulsion of the T11 vertebral body without high-grade spinalstenosis. Minimal disc bulges are seen at T10-11 and T11-12.IMPRESSION:No acute process with chronic appearing findings as discussed.MR LUMBAR SPINE WITHOUT CONTRAST 12/20/2017HISTORY: As above.COMPARISON: Same day x-rays and prior MRI of 09/10/2017Five lumbar levels are present. There is severe compression deformity at L1once again with retropulsion of bony fragmentsthat is producing borderlinespinal stenosis. Rqim-fe-lnlthdai compression deformity is again noted atL3. Other vertebral body heights are fairly well-maintained.Imaging is limited due to motion artifact.The L1-2 disc is maintained. Minimal disc bulge is seen at L2-3 withouthigh-grade spinal stenosis. There is question of minimal foraminalnarrowing.Broad-based disc bulge at L3-4 does not produce high-grade spinal stenosis.Mild bilateral foraminal narrowing is observed.Minimal disc bulge is also seen at L4-5 without significant spinalstenosis. Mild ligamentum flavum and facet hypertrophic changes arepresent. Neural foramina are patent.Minimal disc bulge is seen at L5- S1 without significant spinal stenosis.Neural foramina are patent.IMPRESSION:Predominantly chronic appearing lumbar spine findings as discussed. Slightretropulsion of bony fragments at L1 is slightly more pronounced than onthe prior MRI. Please see the above extensive description.THANK YOU FOR YOUR OUTPATIENT REFERRALjhbLegally authenticated by GABY SINGH 2017-12-20 15:59:36BAPT08 Smith StreetIAGNOSTIC IMAGING REPORTPatient Name: Fiona CARMEN of Service: [id number]: 62 Sex: F Order #: 500 Room: OPEDOB: 1955 X-Ray Number: [id number] Record Number: [id number] Hospital Number: [id number] Physician: RADHA CALLEJASOrdering Physician: RADHA CALLEJASElectronically Signed By: Ghassan Kenyon M.D., 12/20/2017 3:59 PMLegally authenticatedby GABY SINGH 2017-12-20 15:59:36CMP 2017-12-09 13:36:00 Test Item Value Reference Range Interpretation Comments SODIUM (test code = 138 MMOL/L 137-145 NA) K+ (test code = 4.0 MMOL/L 3.5-5.1 PLEASE NOTE NEW KSERUM) REFERENCE RANGE (S) IN EFFECT EFFECTIVE 010 - NEW ANALYZER (V ITROS 5600) CHLORIDE (test code 98 MMOL/L 98-107 = CL) CO2 (test code = 29 MMOL/L 22-30 CO2) BUN (test code = 15 MG/DL 7-17 BUN) CREA (test code = 1.3 MG/DL 0.7-1.2 H CREA) GLUCOSE (test code 105 MG/DL 70-99 H Fasting glucose = GLUCOSE) normal <100 MG/ DL- [employer] recommendation* * CALCIUM (test code 9.7 MG/DL 8.4-10.2 = CABLOOD) TOTPROT (test code 6.9 G/DL 6.3-8.2 = TOTPROT) ALBUMIN (test code 3.8 G/DL 3.5-5.0 = ALBSERUM) BILITOT (test code 0.3 MG/DL 0.2-1.3 = BILITOT) AST (test code = 23 U/L 15-46 AST) PHOSALK (test code 133 U/L 38-126 H = PHOSALK) ALT (test code = 21 U/L 13-69 ALT) GFR (test code = 44 A GFR of >9 0 GFR) mL/min/1.73m2 mL/min/1.73m2 is considered norm al. [id number] 13:03:00 Test Item Value Reference Range Interpretation Comments WBC (test code = 10.8 K/UL 3.5-10.9 WBC) RBC (test code = 3.38 M/UL 4.0-5.0 L RBC) HGB (test code = 9.5 G/DL 11.5-15.5 L HGB) HCT (test code = 29.3 % 34-46 L HCT) MCV (test code = 86.7 FL 80-98 MCV) MCH (test code = 28.1 PG 28-32 MCH) MCHC (test code = 32.4 G/DL 32.5-36.5 L MCHC) RDW (test code = 14.5 % 11.5-14.5 RDW) PLT (test code = 331 K/UL 150-450 PLT) MPV (test code = 8.8 FL 7.4-10.4 MPV) MANDIFF (test code = NO MANDIFF) SCAN (test code = NO SCAN) NEUT% (test code = 79.6 % 40-75 H NEUT%) LYMPH% (test code = 11.9 % 24-44 L LYMPH%) MONO% (test code = 4.9 % 0-13 MONO%) EOS% (test code = 2.6 % 0-4 EOS%) BASO % (test code = 0.6 % 0-2 BASO%) IG% (test code = 0.4 % 0-1 IG% = Metam yelocytes, IG%) Myelocytes, and Promyelocytes. (Immature neutr ophils not including " bands".) > 3% IG indic ates risk of sepsis NRBC% (test code = 0 /100 WBC NRBC%) ABS NEUT (test code 8.6 K/UL 1.2-7.2 H = NEUT) CT HEAD W/O [id number] 13:32:00[address]IAGNOSTIC IMAGING REPORTPatient Name: Fiona CARMEN of Service: [id number]: 62 Sex: F Order #: 1400 Room: ERSDOB: 1955 X-Ray Number: [id number] Record Number: [id number] Hospital Number: [id number] Physician: IZABEL LEBLANCOrdering Physician: DALI FULTON head without contrast 12:45 PMHistory: Altered mental status, confusion.This CT exam was performed using one or more of the following dosereduction techniques: Automated exposure control, adjustment of the MAand/or KV according to patient size or use of iterative reconstructiontechnique.Findings:There is diffuse cortical atrophy .Periventricular white matter changes are technically nonspecific althoughthese suggest chronic small vessel gliosis.There is no mass effect or midline shift present.There is no extra-axial fluid collection, intracranial hemorrhage orhydrocephalus.Impression:Suspected chronic/old ischemic changes withdiffuse cortical atrophy.No acute abnormality is detected.Electronically Signed By: Angelito Grier M.D., 08/28/2017 1:30 PMLegally authenticated by CLARENCE TERRY 2017-08-28 13:30:33CHEST 1 VIEW [id number] 13:14:00[place] [id number] IMAGING REPORTPat ient Name: Fiona CARMEN of Service: [id number]: 62 Sex: F Order #: 1300 Room: QERDOB: 1955 X-Ray Number: [id number] Record Number: [id number] Hospital Number: [id number] Physician: Chris LEBLANC Physician: NIESHA FULTON UPRIGHT PORTABLE CHEST:CLINICAL HISTORY: Confusion and urinary incontinence; history of right lungcancer and left MediPort placement; no prior plain films hereTECHNIQUE: One viewFINDINGS:There are monitor leads seen on the chest.The heart and vascularity within normal limits.The left lung is clear.The MediPort reservoir and catheter appear satisfactory with the cathetertip in the right atrium.There is increased density demonstrated at the base of the right lungwhere prior planning CT scan for radiation therapy demonstrated thepatient's lung cancer.Impression: No acute changes are demonstrated.Electronically Signed By: Isac Carpenter M.D., 08/28/2017 1:12 PMLegally authenticated by SELIN Saenz 2017-08-28 13:12:0 0SPECIAL [id number] 09:14:[address] [id number] IMAGING REPORTPatient Name: AZAM CARMENDate of Service: [id number]: 61 Sex: F Order #: 100 [facility] 1955 X-Ray Number: [id number] Record Number: [id number] Hospital Number: [id number] Physician: NATALIE JACINTOOrderjoseluis Physician: FERNANDO LEE ADDENDUM #1 Ultrasound images were saved to the patient's medical record demonstratingpuncture sites.Electronically Signed By: Vadim Robles M.D., 07/23/2017 9:11 AM ORIGINAL REPORT Mediport insertion.History: Chemotherapy access.Technique/findings: The risks and benefits of the procedure were explainedto the patient. Signed, informed consent was obtained and placed thepatient's chart.The left and right chest were prepped and draped in a surgical sterilefashion. The skin and subcutaneous soft tissues over the left internaljugular vein were anesthetized with 1% lidocaine. The ultrasound probe wascovered in sterile fashion. Under real-time ultrasound guidancemicropuncture needle was advanced into the left internal jugular vein.Attempts to advance a micropuncture wire failed. 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 Lee.Electronically Signed By: Vadim Robles M.D., 07/04/2017 12:51 PMLegally authenticated by GERARD Ayala 2017-07-23 09:11:32SPECIAL [id number] 16:56:00[address]IAGNOSTIC IMAGING REPORTPatient Name: AZAM CARMEN of Service: [id number]: 61 Sex: F Order #: 500 Room: [facility]: 1955 X-Ray Number: [id number] Record Number: [id number] Hospital Number: [id number] Physician: Sharon JACINTO Physician: Ki LEEound-guided vascularaccess,Selective left subclavian venogram,Balloon angioplasty of the left innominate vein,Fluoroscopic guided placement of a left internal jugular uoppudyaCahw-V-Iann 07/16/2017 11:44 AMHISTORY: 61-year-old female with need for long-term IV access forchemotherapy. The patient underwent a previous attempted Mediport placementon 07/04/2017 but was felt to have SVC occlusion. She returns today forpossiblerevascularization of her central venous outflow with possibleMediport placement.COMPARISON: 07/04/2017TECHNIQUE/FINDINGS:After obtaining written, informed consent the patient was placed in thesupine position on the angiography table. The left neck was then preppedand draped in the usual sterile fashion. Preliminary sonographic assessmentof the left internal jugular vein demonstrates a patent vessel, s uitablefor access. The overlying skin was anesthetized with 1% lidocaine and asmall dermatotomy was made. Under real-time, concurrent sonographicguidance a 21-gauge micropuncture needle was advanced into the leftinternal jugular vein and an image was saved to the patient's permanentmedical record. I then attempted to advance a 0.018 guidewire into the SVCvia the access needle. However, the wire preferentially went into the leftsubclavian vein and would not redirect into the innominate vein.Subsequently, a 5 Khmer micropuncture catheter was advanced over the wireinto the left subclavian vein. A selective left subclavian venogram wasperformed. This demonstrates a patent left subclavian vein withoutstenosis. There is a moderate stenosis at the junction of the leftinnominate vein with the SVC by approximately 50%. The superior vena cavais patent with good outflow to the heart.Subsequently, with catheter and wire technique, I was able to successfullynavigate through the stenotic segment of the leftinnominate vein and intothe inferior vena cava. A 7 Khmer vascular sheath was then placed in theleft internal jugular vein over the guidewire.Subsequently, balloon angioplasty of the significant stenosis involving theleft innominate vein was performed with a 12 mm x 6 cm angioplasty balloon.This demonstrates a moderate waist that completely effaced. The balloon wasthen deflated and removed. The 7 Khmer vascular sheath was then exchangedfor a valved peel-away sheath.Attention was then turned to theanterior left chest wall where a portpocket site was chosen. The overlying skin and subcutaneous soft tissueswas then anesthetized with 1% lidocaine. An incision was carried down tothe prepectoral softtissues and the port pocket created with bluntdissection. The Port-A-Cath was then assembled and tunneled through thissubcutaneous soft tissues of the anterior left chest wall.The catheter was then cutto the appropriate length and advanced throughthe peel-away sheath. The sheath was removed. The tip of the catheter wasthen placed in the mid right atrium under fluoroscopic guidance. Thecatheter aspirates and flushes appropriately and was subsequentlyhep-locked. The port pocket was then closed with interrupted 3-0 Vicrylsutures followed by a running 4-0 Vicryl subcuticular stitch. Dermabondskin gluewas also applied over the port pocket incision as well as at theneck dermatotomy site. The patient tolerated the procedure well and withoutcomplication.Sedation: Moderate IV conscious sedation as provided by Dr. Jacinto usinga total of 5 mg Versed, 250 mcg fentanyl, and 1 mg Dilaudid for a total [id number] of dedicated physician cnyx-pl-dtnj sedation time. Independentpatient monitoring was provided by the interventional radiology nurse, atrained independent observer.Estimated blood loss: Less than 5 cc.Legally authenticated by OPHELIA ESTRADA 2017-07-16 16:54:28BA[place] [id number] IMAGING REPORTPatient Name: AZAM CARMENDate ofService: 13-31-5546Jrn: 61 Sex: F Order #: 500 Room: SPSDOB: 1955 X-Ray Number:[id number] Record Number: [id number] Hospital Number: [id number] Physician: NATALIE JACINTOOrdering Physician: Dino LEE complications: None.Fluoroscopy: 1.8 minutesIMPRESSION:1. Selective left subclavian venogram demonstrates a significant stenosisinvolving the left innominate vein. The SVC is widely patent.2. Successful balloon angioplasty of the left innominate vein. Afollow-upvenogram shows no hemodynamically significant residual stenosis.3. Successful ultrasound and fluoroscopic guided placement of a leftinternal jugular Port-A-Cath.Electronically Signed By: Natalie Jacinto M.D., 07/16/2017 4:54 PMLegally authenticated by OPHELIA ESTRADA 2017-07-16 16:54:28MRI BRAIN W 2017-07-03 16:19:00[place] [id number] IMAGING REPORTPatient Name: AZAM CARMENDate of Service: 24-03-5015Vke: 61 Sex: F Order #: 1000 Room: OPEDOB: 1955 X-Ray Number: [id number] Record Number: [id number] Hospital Number: [id number] Physician: LIBRADO THOMPSON -Ordering Physician: LIBRADO THOMPSON -MRI brain with and without contrast 3:47 PMHistory: Lung carcinoma.Findings:There is diffuse cortical atrophy.Periventricular white matter changes are technically nonspecific althoughthese suggest chronic small vessel gliosis.There is no mass effect or midline shift present.There is no extra-axial fluid collection, intracranial hemorrhage orhydrocephalus.Diffusion weighted imaging demonstrates no evidence for acute infarction.There is no abnormal enhancing mass lesion to suggest metastatic disease tothe head.Impression:Suspected chronic ischemic changes with diffuse cortical atrophy.No acute abnormality is detected.No intracranial metastasis is seen.Electronically Signed By: Angelito Grier M.D., 07/03/2017 4:17 PMLegally authenticated by CLARENCE TERRY 2017-07-03 16:17:23BONE SCAN [id number] 11:58:00[address]IAGNOSTIC IMAGING REPORTPatient Name: AZAM CARMENDate of Service: 44-32-5460Smm: 61 Sex: F Order #: 100 Room: OPEDOB: 1955 X- Ray Number: [id number] Record Number: [id number] Hospital Number: [id number] Physician: LIBRADO THOMPSON -Ordering Physician: LIBRADO THOMPSON - Radionucleotide bone scan.History: Lung cancer.Technique: Following the IV administration of 22 mCi of technetium 99m MDP,images of the axial and periventricular skeleton were reviewed.Findings:There is increased radiotracer u ptake seen at the T10 level consistent withthe patient's history of fracture.There are areas of increased radiotracer uptake involving the second andthird ribs anteriorly on the right as well as the second, third and fourthribs anteriorly on the left. There are small foci of increased radiotraceruptake seen involving posterior ribs bilaterally as well.Radiotracer uptake seen surrounding both knees ismost likely degenerative.Impression:Findings involving multiple ribs which could be consistent with osseousmetastatic disease.Radiotracer uptake seen involving the T10 level consistent with fracture,pathologic fracture cannot be entirely excluded.Correlate clinically. Plain film correlation and/or CT correlation may bebeneficial.Electronically Signed By: Vadim Robles M.D., 07/03/2017 11:55 AMLegally authenticated by GERARD Ayala 2017-07-03 11:55:56PET/CT ET SUBSEQUENT [id number] 12:45:[address] [address]IHDIDHVWRT IMAGING REPORTPatient Name: Fiona CARMEN of Service: 22-59-7448Qos: 61 Sex: F Order #: 100 Room: OPEDOB: 1955 X-Ray Number: [id number] Record Number: [id number] Hospital Number: [id number] Physician: LIBRADO THOMPSON -Ordering Physician: LIBRADO THOMPSON -WHOLE BODY F-18 FDG PET/CT FUSION SCAN 07/01/2017History: Right lung cancerComparison: PET/CT of 04/12/2017Technique: CT scan is performed without contrast from the skull base tothe mid femora. This is used for attenuation correction and anatomiclocalization. Next, following intravenous injection of 11.2 mCi of F-18labeled FDG, whole body PET scan is performed. Multiplanar reformatted,MIP, and PET/CT fusion images are reviewed on a workstation. Blood glucoselevel was 106 mg/dL.Findings:Abnormally increased metabolic activityis again seen involving the mass inthe right lung lower lobe adjacent to the hilum. SUV is measured at up to17.4. The area of increased activity has increased in size compared to theprior exam measuring up to 4.9 cm transverse x 2.9 cm AP. There is alsoabnormal lymph node activity in the right hilar and subcarinal regions. Thesubcarinal lymph node measures 2.7 x 2.0 cm with SUV of 6.7. Abnormalactivity is also again seen in a 9 mm short axis right paratracheal lymphnode with SUV of 11.5.Multiple bilateral rib fracture deformities are now observed. There is alsoa severe compression deformity at T11 which appears recent. This is limitedto the anterior two thirds of the vertebral bodies without retropulsion ofbony fragments or spinal stenosis.Other imaged portions of the body are unchanged.Impression:Adverse interval change involving the right lung lower lobe mass with areasof increased activity involving lymph nodes in the right perihilar andsubcarinal regions. Right paratracheal lymph node activity is also againidentified.Interval development of severe compression deformity at T11 with multiplebilateral rib fracture deformities that are possibly due to recent fall.Electronically Signed By: Ghassan Kenyon M.D., 07/01/2017 12:43 PMLegally authenticated by GABY SINGH 2017-07-01 12:43:29CHEST XR 2 [id number] 16:37:[address] [address]KETHFIINGY IMAGING REPORTPatient Name: Fiona CARMEN of Service: [id number]: 61 Sex: F Order #: 100 [facility]: [id number] Record Number: [id number] Hospital Number: [id number] Physician: LIBRADO THOMPSON -Ordering Physician: LIBRADO THOMPSON -Chest 2 views 06/27/2017 [id number] hoursHistory: Lung cancer, COPDComparison: PET/CT of 04/12/2017Heart size is within normal limits. Density persists at the right lung baseconsistent with previously noted right infrahilar lower lobe mass andsuspected peripheral right lung base atelectasis versus pneumonia.Increased background pulmonary interstitial markings are probably chronic.No clearly significant effusion or pneumothorax.Bones and soft tissues are stable.Continued follow-up suggested regarding right lung base density.Electronically Signed By: Ghassan Kenyon M.D., 06/27/2017 4:34 PMLegally authenticated by GABY SINGH 2017-06-27 16:34:8366159&PELVIS W/CONTRAST 2017-06-23 16:52:46REASON FOR STUDY: Abd painCT ABDOMEN AND CT PELVIS WITH CONTRAST : Radiation dose lowering techniques were used with automated exposurecontrol, adjusting the mA according to patient's size. Multiple tra nsverse images were obtained through the upper abdomen andthrough the pelvis during rapid intravenous administration of 100 mL ofIsovue-300 contrast material. There is a mass density in the right lowerlobe medially with probableatelectasis.Surgical clips are noted in the region of the gallbladder fossa. Thereis colonic fecal retention throughout the colon. Small uncomplicatedumbilical hernia is present.There is marked compression fracture at T11 with gas in the disc spaceabove and below this level.No definite central stenosis. There issclerotic appearance may represent a chronic fracture. Correlateclinically.No focal abnormalities are seen in the liver. The spleen isunremarkable. The pancreas has a normal appearance. No abnormalitiesare seen in the kidneys. No enlarged lymph nodes are seen in the upperabdomen or pelvis.No masses are seen in the pelvis. There are a few distal colonicdivertic vu present.IMPRESSION: Mass suspected in the right lower lobe with atelectasis measuringapproximately 4.4 cm in diameter. Neoplasm is a primary consideration.Colonic fecal retention with its a few small diverticula in the distalcolon.There is marked compression fracture at T11 with gas in the disc sp aceabove and below this level. No definite central stenosis. There issclerotic appearance may represent a chronic fracture. Correlateclinically.Small uncomplicated umbilical hernia.PATHOLOGY [id number] 14:03:00- TISSUE CONSULTATION REPORTBAUNIVERSITY MEDICAL CENTERDEPARTMENT OF PATHOLOGYP.[address] [address] aMARY DIAZ M.D.KATIA VEGA M.D. Patient: AZAM CARMEN 1955 61 FRoom:Hosp#: [id number] Ordering Physician: VADIM ROBLES- JAY Avila Rec.: 06/03/2017Date of Proc.: 06/03/2017Lab No.: [id number]____ Clin ical History:- Lung biopsy of right lung mass.FINAL ANATOMIC DIAGNOSIS:RIGHT LUNG MASS, CT-GUIDED CORE BIOPSY:- CARCINOMA, POORLY DIFFERENTIATED, FAVOR SQUAMOUS CELL CARCINOMA(SEE REPORT COMMENTS).REPORT COMMENTS:- This poorly differentiated carcinoma is not small cell carcinoma.Immunoperoxidase stains were done; carcinoma cells are positive forp63 and CK5/6; carcinoma cells are negative for TTF1 and CEA. Theimmunoperoxidase staining pattern favors squamous cell carcinoma.MICROSCOPIC EXAMINATION:- See diagnosis and report comments.FROZEN DIAGNOSIS:Intraoperative consult diagnosis (rapid stain of touch preparation)- Right lung mass, CT-guided biopsy: Two touch preps examined;cellular material; suspectcarcinoma (CANDICEW).GROSS APPEARANCE:- Labeled with the patient's name is wispy cylindrical tissue;diameter is well under 0.1 cm; aggregate length is approximately 0.8cm. All tissue submitted, one block.PATHOLOGIST: Pinky Valle Joseph Electronically Signed: 06/04/2017 SPECIAL [id number] 16:05:[address] [address]MEHYSEXDSD IMAGING REPORTPatient Name: AZAM CARMENDate of Service: [id number]: 61 Sex: F Order #: [id number] [facility] 1955 X-Ray Number: [id number] Record Number: [id number] Hospital Number: [id number] Physician: VADIM ROBLES FOrdering Physician: LIBRADO THOMPSON -CT-guided right lung biopsy, 06/03/2017 4:01 PM:History: Lung massTechnique/Findings:After obtaining written, informed cons ent the patient was placed in theprone position on the CT table. Preliminary CT imaging was performeddemonstrating an appropriate access site. The overlying skin was in sizewith 1% lidocaine and a small dermatotomy made.Next, under intermittent CT guidance, a 19-gauge coaxial needle wasadvanced into the mass, the internal stylette was removed, and through theneedle a 20-gauge mechanical core biopsy device was deployed and a corebiopsy specimen was obtained. An additional 1 other core biopsy specimenswere obtained in a similar fashion. These were submitted to pathology foranalysis. The needle was removed and a sterile dressing applied over theentry site. The patient tolerated the procedure well. The procedure wascomplicated by an approximate 20% right pneumothorax. After several imagesrevealed no significant improvement in the pneumothorax, pneumothoraxdecompression with needle was performed under fluoroscopic guidance. Therewas interval improvement in the right pneumothorax. The patient remained asymptomatic.Under physician supervision, Versed and fentanyl administered intravenouslyfor moderatesedation. Pulse oximetry, heart rate, and BP are continuouslymonitored by an independent trained observer present. The physician spent25 minutes of face to face sedation time with the patient.Estimatedblood loss: Less than 5 ccImmediate complications: NoneImpression:1. Technically successful CT-guided biopsy of a right lung mass.2. Needle decompression of pneumothorax under fluoroscopy.Electronically Signed By: Vadim Robles M.D., 06/03/2017 4:03 PMLegally authenticated by GERARD Ayala 2017-06-03 16:03:28SPECIAL [id number] 16:05:[address] [id number] IMAGING REPORTPatient Name: AZAM CARMEN of Service: [id number]: 61 Sex: F Order #: [id number] [facility] 1955 X-Ray Number: [id number] Record Number: [id number] Hospital Number: [id number] Physician: VADIM ROBLES FOrdering Physician: LIBRADO THOMPSON -CT-guided right lung biopsy, 06/03/2017 4:01 PM:History: Lung massTechnique/Findings:After obtaining written, informed cons ent the patient was placed in theprone position on the CT table. Preliminary CT imaging was performeddemonstrating an appropriate access site. The overlying skin was in sizewith 1% lidocaine and a small dermatotomy made.Next, under intermittent CT guidance, a 19-gauge coaxial needle wasadvanced into the mass, the internal stylette was removed, and through theneedle a 20-gauge mechanical core biopsy device was deployed and a corebiopsy specimen was obtained. An additional 1 other core biopsy specimenswere obtained in a similar fashion. These were submitted to pathology foranalysis. The needle was removed and a sterile dressing applied over theentry site. The patient tolerated the procedure well. The procedure wascomplicated by an approximate 20% right pneumothorax. After several imagesrevealed no significant improvement in the pneumothorax, pneumothoraxdecompression with needle was performed under fluoroscopic guidance. Therewas interval improvement in the right pneumothorax. The patient remained asymptomatic.Under physician supervision, Versed and fentanyl administered intravenouslyfor moderatesedation. Pulse oximetry, heart rate, and BP are continuouslymonitored by an independent trained observer present. The physician spent25 minutes of face to face sedation time with the patient.Estimatedblood loss: Less than 5 ccImmediate complications: NoneImpression:1. Technically successful CT-guided biopsy of a right lung mass.2. Needle decompression of pneumothorax under fluoroscopy.Electronically Signed By: Vadim Robles M.D., 06/03/2017 4:03 PMLegally authenticated by GERARD Ayala 2017-06-03 16:03:28CHEST 1 VIEW [id number] 16:00:[address] [id number] IMAGING REPORTPatient Name: AZAM CARMENDate of Service: [id number]: 61 Sex: F Order #: [id number] [facility] Number: [id number] Record Number: [id number] Hospital Number: [id number] Physician: VADIM ROBLES FOrdering Physician: VADIM ROBLES PORTABLE CHEST:CLINICAL HISTORY: Follow-up post biopsy of the right lungTECHNIQUE: One viewFINDINGS: There is now a pneumothorax demonstrated.The superior pleural surface is 3.9 cm from the apex of the right lung.Thereis persistent atelectasis at the right base.There is no evidence of mediastinal shift.Impression: Pneumothorax in the right lung as described. There is nomediastinal shift. There is persistent atelectasis at the right base.Electronically Signed By: Isac Carpenter M.D., 06/03/2017 3:58 PMLegally authenticated by SELIN Saenz 2017-06-03 15:58:17CHEST 1 VIEW [id number] 15:59:00BAJason [place] [id number] IMAGING REPORTPatient Name: AZAM CARMENGregoryte of Service: [id number]: 61 Sex: F Order #: [id number] Room: SPSDOB: 1955 X-Ray Number: [id number] Record Number: [id number] Hospital Number: [id number] Physician: VADIM ROBLES FOrdering Physician: VADIM ROBLES PORTABLE CHEST:CLINICAL HISTORY: Follow-up post right lung biopsyTECHNIQUE: One view in expirationFINDINGS: There kelechi bandlike area of atelectasis noted at the right base.There is no pneumothorax identified.The heartis top normal in size and the left lung is clear.Impression: No evidence of a pneumothorax. Bandlikeatelectasis is presentat the right baseElectronically Signed By: Isac Carpenter M.D., 06/03/2017 3:56 PMLegally authenticated by SELIN Saenz 2017-06-03 15:56:44PET/CT EYES TO THIGHS [id number] 07:47:00BABeth Ville [id number] IMAGING REPORTPatient Name: AZAM CARMENAra of Service: [id number]: 61 Sex: F Order #: [id number] Room: OPEDOB: 1955 X-Ray Number: [id number] Record Number: [id number] Hospital Number: [id number] Physician: LIBRADO THOMPSON -Ordering Physician: LIBRADO THOMPSON -PET tumor imaging with CT,skull to thigh, 04/12/2017HISTORY:Right lower lobe, right mass. C 34.01. 75481-VH.TECHNIQUE: Following the intravenous administration of10.2 millicuries F 18FDG, multiple tomographic images of the patient are performed from midskull to mid thigh. 3-D MIP images are reviewed. Noncontrast CT was alsoperformed for attenuation correction and lesion localization. Glucose milligrams per deciliter.C OMPARISON:CT thorax study dated 04/05/2017FINDINGS:The PET images are significant for intense region of abnormal increasedmetabolic uptake involving the right lower lobe infrahilar compartmentcorresponding to an approximate 3.6 x 3.0 transverse dimension noncalcifiedpulmonary nodule. SUV equals 22.5 (image 84). Moderate right lower lobepostobstructive consolidated atelectasis noted which is metabolicallyinactive. There is also demonstration of a small focus of moderatelyintense abnormal metabolic uptake involving the right paratracheal/azygousnode compartment with SUV of 7.7 (image 57) and correspond ing tosubcentimeter lymph node. There is a 4 mm noncalcified pulmonary noduleinvolving the left lower lobe laterally (image 91) without obviousmetabolic abnormality. This nodule however is below PET siz ediscrimination.The remaining PET images otherwise show some curvilinear arthritic/bursiticactivity involving the bilateral shoulders and hip compartments.Selective CT findings include some mild scattered atheroscleroticcalcification of the thoracic and abdominal aorta. Cholecystectomy clips.Moderate colonic fecal stasis with presumed some undigested medicationhyperdense foci within portions of the right and transverse colondistribution.Impression:1. Abnormal neoplastic uptake corresponding to rightinfrahilar lower lobepulmonary mass with likely associated right paratracheal/azygousmicroscopic metastatic adenopathy.2. Metabolically inactive right lower lobe postobstructive consolidativeatelectasis.3. 4 mm metabolically inactive noncalcified left lower lobe pulmonarynodule. Nodule is below PET size discrimination. Follow-up according toestablished CT pulmonary nodule guidelines is recommended todocumentstability.4. Otherwise background nonneoplastic CT findings as discussed.Electronically Signed By: Mauricio Ramirez M.D., 04/13/2017 7:45 AMLegally authenticated by ELIZABETH MORGAN 2017-04-13 07:45:24CT LUNG CANCER [id number] 15:24:[address] [address]UWUNRUNBVD IMAGING REPORTPatient Name: Fiona CARMEN of Service: [id number]: 61 Sex: F Order #: 100 [facility] 1955 [facility]-Ray Number: [id number] Record Number: [id number] Hospital Number: [id number] Physician: LIBRADO THOMPSON -Ordering Physician: LIBRADO THOMPSON -CT LUNG CANCER SCREENING 2:06 PMTechnique: Low dose CT of the chest.History: 61 year-old asymptomatic current smoker with a history ofapproximately 21 pack years of smoking.FINDINGS:There is a 2.8 x 2.4 x 2.7 cm obstructing mass within the right lower lobebronchus causing distal lung atelectasis. Direct visualization issuggested.There is a tiny calcified granuloma within the lingula.There is a noncalcified pulmonary nodule left lower lobe measuring 5 mm.Evaluation of the soft tissues is limited due to low-dose radiationtechnique.No pleural effusion or pneumothorax is seen.IMPRESSION:Obstructing right lower lobe bronchial mass lesion.Noncalcified left lower lobe pulmonary nodule, histology indeterminate.Six-month follow-up balta nieves is suggested.This exam was performed in a facility that meets the criteria for thelowdose CT screening program. Gadolinium regarding this exam was submitted [facility].The order for this exam indicates that he came as a result of a lung cancerscreening counseling and show decision-making visit that included all theelements required for such a visit.The radiologist interpreting this exam is for [facility] criteria for the LDCTlung cancer screening program.Electronically SignedBy: Angelito Grier M.D., 04/05/2017 3:21 PMLegally authenticated by CLARENCE TERRY 2017-04-05 15:21:57
[2020-08-18 11:22] LABS: Absolute Lymphocytes (CBC) 1.7 K/uL (0.7-4.9); Basophils % 1.1 % (0-1.3); Hematocrit 42.5 % (36.0-45.0); MPV 7.5 fL (7.6-11.3); RBC Red Blood Cell Count 4.78 M/uL (3.86-4.86)
[2020-08-18 11:27] LABS: Protime INR 0.97
[2020-08-18] MEDS ORDERED: NA CHLORIDE 0.9% 250 ML ONE (11:31)
[2020-08-18 11:38] LABS: ALT/SGPT 28 U/L (12-78); AST/SGOT 18 U/L (15-37); Albumin 3.9 g/dL (3.4-5.0); Alkaline Phosphatase 82 U/L (45-117); BUN Blood Urea Nitrogen 17 mg/dL (7-18); Bicarbonate 26 mmol/L (21-32); Bilirubin Direct < 0.1 mg/dL (0-0.2); Bilirubin Total 0.4 mg/dL (0.2-1.0); Glucose Level 78 mg/dL (74-106); Potassium 3.9 mmol/L (3.5-5.1); Protein, Total 7.9 g/dL (6.4-8.2); Sodium Level 139 mmol/L (136-145)
[2020-08-18 12:07] LABS: Urine Blood 1+ (NEG); Urine Glucose NEGATIVE (NEG); Urine Protein NEGATIVE (NEG); Urine pH 6.5 (5.0-7.0)
[2020-08-18 12:17] LABS: Barbiturates NEGATIVE (NEGATIVE); Benzodiazepines NEGATIVE (NEGATIVE); Cocaine NEGATIVE (NEGATIVE); METHAMPHETAM NEGATIVE (NEGATIVE); Methadone NEGATIVE (NEGATIVE); Opiates NEGATIVE (NEGATIVE); Phencyclidine NEGATIVE (NEGATIVE); THC Cannibis NEGATIVE (NEGATIVE)
--- NOTE | 2020-08-18 13:39 | ER ---
Nurse's Notes [facility] Name: Abeba Perez Age: 65 yrs Sex: Female : 1955 Arrival Date: 08/18/2020 Time: 10:17 Bed 19 Private MD: Diagnosis: Paranoid personality disorder;Delusional disorders Presentation: 08/18 10:28 Chief complaint: [place] PD brought pt in after daughter called PD for some unknown em person trying to leave with pt, daughter states she has not been acting right since she last had chemo about a year ago for lung cancer, daughter also states she is hallucinating and being paranoid at home, daughter states she told daughter she wants to but also wants to go to [facility], pt currently denies SI/HI, calm and cooperative, daughter wants her evaluated and make sure she is in her right mind. Coronavirus screen: Client denies travel out of the [place] in the last 14 days. Ebola Screen: Patient negative for fever greater than or equal to 101.5 degrees Fahrenheit, and additional compatible Ebola Virus Disease symptoms Patient denies exposure to infectious person. Patient denies travel to an Ebola-affected area in the 21 days before illness onset. No symptoms or risks identified at this time. Initial Sepsis Screen: Does the patient meet any 2 criteria? HR > 90 bpm. No. Patient's initial sepsis screen is negative. Does the patient have a suspected source of infection? No. Patient's initial sepsis screen is negative. Risk Assessment: Do you want to hurt yourself or someone else? Patient reports no desire to harm self or others. Onset of symptoms was July 2019. 10:28 Method Of Arrival: Law Enforcement: Prabha AGUILAR em 10:28 Acuity: EVIE 2 em Historical: - Allergies: 10:39 No Known Allergies; em - Home Meds: 10:39 pregabalin 75 mg Oral 1 cap 2 times per day [Active]; bupropion HCl 300 mg Oral Tb24 1 em tab once daily [Active]; acetaminophen 650 mg Oral TbER [Active]; venlafaxine 150 mg oral tr24 2 tab once daily [Active]; cyclobenzaprine 5 mg Oral tab 1 tab twice a day [Active]; omeprazole 20 mg Oral cpDR 1 cap once daily [Active]; bisacodyl 5 mg Oral TbEC 1 tab [Active]; ondansetron HCl 8 mg Oral tab 1 tab every 8 hours [Active]; diphenhydramine HCl 25 mg Oral tab [Active]; - PMHx: 10:39 Osteoporosis; lung cancer; em - PSHx: 10:39 Cholecystectomy; Hernia repair; em - Immunization history:: Adult Immunizations up to date. - Social history:: Smoking status: Patient reports the use of cigarette tobacco products, denies chronic smoking, but will smoke occasionally. Screenin:39 Abuse screen: Denies threats or abuse. Nutritional screening: No deficits noted. em Tuberculosis screening: No symptoms or risk factors identified. Fall Risk None identified. Assessment: 10:38 General: Appears in no apparent distress. comfortable, Behavior is calm, cooperative, em appropriate for age. Pain: Denies pain. Neuro: Level of Consciousness is awake, alert, obeys commands, Oriented to person, place, time, situation, Appropriate for age. Cardiovascular: Denies chest pain, Capillary refill < 3 seconds Patient's skin is warm and dry. Respiratory: Airway is patent Respiratory effort is even, unlabored, Respiratory pattern is regular, symmetrical. Derm: Skin is intact, is healthy with good turgor, Skin is pink, warm \T\ dry. Musculoskeletal: Capillary refill < 3 seconds, Range of motion: intact in all extremities. 12:00 Reassessment: Patient appears in no apparent distress at this time. Patient and/or em family updated on plan of care and expected duration. Pain level reassessed. Patient is alert, oriented x 3, equal unlabored respirations, skin warm/dry/pink. daughter at bedside. 12:52 Reassessment: report given to Celina at [facility]. em 13:36 Reassessment: Patient appears in no apparent distress at this time. Patient and/or em family updated on plan of care and expected duration. Pain level reassessed. Patient is alert, oriented x 3, equal unlabored respirations, skin warm/dry/pink. 14:30 Reassessment: Patient appears in no apparent distress at this time. Patient and/or em family updated on plan of care and expected duration. Pain level reassessed. Patient is alert, oriented x 3, equal unlabored respirations, skin warm/dry/pink. 15:18 Reassessment: report given to [facility]. em Psych: 10:38 Subjective: Delusions are denied, Hallucinations are denied. Objective: Patient is em cooperative, Speech is normal, Affect is appropriate. Interventions: Removed personal items and placed in bag. Patient placed in hospital gown. Suicide Risk Assessment: Sad Person Scale: Sex of patient: Female: Score 0 points. Age of patient: Score 0 point if patient falls outside of specified age parameters. Depression: Score 1 point if signs of depression are present. Previous Attempt: Score 0 point if patient has not previously attempted suicide. Substance Abuse: Score 0 point if patient does not abuse alcohol or drugs. Rational Thinking: Score 0 point if patient has rational thinking. Social Support: Score 0 if social support is present/available. Organized Plan: Score 0 if patient did not have an organized plan in place. Relationship: Score 0 point if patient has a spouse or domestic partner. Chronic Sickness: Score 0 point if patient does not have a chronic illness, debilitating, or severe disorder. TOTAL POINTS: If total points are 0-2, proposed clinical action is to send home with follow-up. Safety Checks: Door is closed to patient's room. Visitors are present. Pt denies substance abuse. Commitment: Patient will be a voluntary commitment. Vital Signs: 10:28 BP 163 / 101; Pulse 119; Resp 20; Temp 98.4; Pulse Ox 100% on R/A; Weight 77.11 kg; em Height 5 ft. 1 in. (154.94 cm); Pain 0/10; 11:16 BP 133 / 86; Pulse 109; Resp 18; Pulse Ox 100% on R/A; em 13:00 BP 130 / 91; Pulse 99; Resp 20; Pulse Ox 97% on R/A; em 10:28 Body Mass Index 32.12 (77.11 kg, 154.94 cm) em ED Course: 10:17 Patient arrived in ED. hb 10:19 Sonido Soriano MD is Attending Physician. kdr 10:28 Omid Sharp, SONJA is Primary Nurse. em 10:33 Triage completed. em 10:39 Arm band placed on. em 10:39 Patient has correct armband on for positive identification. Bed in low position. Call em light in reach. Side rails up X2. Adult w/ patient. Pulse ox on. NIBP on. 10:57 EKG done, by ED staff, reviewed by Sonido Soriano MD. em 11:13 Initial lab(s) drawn, by ma, sent to lab. Inserted saline lock: 22 gauge in right em antecubital area, using aseptic technique. Blood collected. 12:42 called and faxed patient clinicals to Celina Patrick from [facility]. eb 12:47 faxed patient records to the following facilities in the attempt to transfer, [facility] , [facility], and [facility]. 12:51 connected Celina from [facility] with Omid Patrick/ for patient transfer eb consultation. 12:58 administrative approval given by Leticia Srinivasan/. eb 13:[address] Rondon the psychiatrist crewman armoured personnel carrier [id number] for [facility] with Dr. Soriano for eb patient transfer consultation. 13:40 No provider procedures requiring assistance completed. IV discontinued, intact, em bleeding controlled, No redness/swelling at site. Pressure dressing applied. Administered Medications: 11:20 Drug: NS 0.9% 250 ml Route: IV; Rate: bolus; Site: right antecubital; em 15:20 Follow up: Response: No adverse reaction; IV Status: Completed infusion; IV Intake: em 150ml Intake: 15:20 IV: 150ml; Total: 150ml. em Outcome: 13:39 ER care complete, transfer ordered by . kdr 15:27 Transferred by ground EMS Transfer form completed. Note: [facility] em 15:27 Condition: stable 15:27 Instructed on the need for transfer, Demonstrated understanding of instructions. 15:28 Patient left the ED. em Signatures: Sonido Soriano MD MD [facility] Omid Sharp, RN RN Stephanie Murphy RN RN Nara Weaver
--- NOTE | 2020-08-18 13:40 | EDPHYS ---
Physician Documentation [facility] Name: Abeba Perez Age: 65 yrs Sex: Female : 1955 Arrival Date: 08/18/2020 Time: 10:17 Bed 19 Private MD: ED Physician Sonido Soriano HPI: 08/18 13:02 This 65 yrs old Female presents to ER via [employer] with complaints of kdr Psych Problem. 13:02 The patient presents to the emergency department with paranoia, psychosis, has kdr experienced visual hallucinations, has delusions. Onset: The symptoms/episode began/occurred gradually, 6 month(s) ago. Past psychiatric history: Prior diagnosis: no previous psychiatric diagnosis known, Psychiatric medications include: none, Primary psychiatric physician: In [facility], the patient has not had a prior suicide gesture, the patient does not have a previous inpatient psychiatric history, the patient's last psychiatric treatment was. 13:33 Associated signs and symptoms: The patient has no apparent associated signs or kdr symptoms. Severity of symptoms: At their worst the symptoms were mild moderate just prior to arrival, in the emergency department the symptoms are unchanged. The patient has experienced similar episodes in the past, chronically. The patient has been recently seen by a physician: Was seen seen by her psych MD earlier this month. Historical: - Allergies: 10:39 No Known Allergies; em - Home Meds: 10:39 pregabalin 75 mg Oral 1 cap 2 times per day [Active]; bupropion HCl 300 mg Oral Tb24 1 em tab once daily [Active]; acetaminophen 650 mg Oral TbER [Active]; venlafaxine 150 mg oral tr24 2 tab once daily [Active]; cyclobenzaprine 5 mg Oral tab 1 tab twice a day [Active]; omeprazole 20 mg Oral cpDR 1 cap once daily [Active]; bisacodyl 5 mg Oral TbEC 1 tab [Active]; ondansetron HCl 8 mg Oral tab 1 tab every 8 hours [Active]; diphenhydramine HCl 25 mg Oral tab [Active]; - PMHx: 10:39 Osteoporosis; lung cancer; em - PSHx: 10:39 Cholecystectomy; Hernia repair; em - Immunization history:: Adult Immunizations up to date. - Social history:: Smoking status: Patient reports the use of cigarette tobacco products, denies chronic smoking, but will smoke occasionally. ROS: 13:33 Constitutional: Negative for fever, chills, and weight loss, Eyes: Negative for injury, kdr pain, redness, and discharge, ENT: Negative for injury, pain, and discharge, Neck: Negative for injury, pain, and swelling, Cardiovascular: Negative for chest pain, palpitations, and edema, Respiratory: Negative for shortness of breath, cough, wheezing, and pleuritic chest pain, Abdomen/GI: Negative for abdominal pain, nausea, vomiting, diarrhea, and constipation, Back: Negative for injury and pain, : Negative for injury, bleeding, discharge, and swelling, MS/Extremity: Negative for injury and deformity, Skin: Negative for injury, rash, and discoloration, Neuro: Negative for headache, weakness, numbness, tingling, and seizure activity. Allergy/Immunology: Negative for hives, rash, and allergies, Endocrine: Negative for neck swelling, polydipsia, polyuria, polyphagia, and marked weight changes, Hematologic/Lymphatic: Negative for swollen nodes, abnormal bleeding, and unusual bruising. 13:33 Psych: Positive for auditory hallucinations, visual hallucinations, Paranoia. Exam: 13:33 Constitutional: This is a well developed, well nourished patient who is awake, alert, kdr and in no acute distress. Head/Face: Normocephalic, atraumatic. Eyes: Pupils equal round and reactive to light, extra-ocular motions intact. Lids and lashes normal. Conjunctiva and sclera are non-icteric and not injected. Cornea within normal limits. Periorbital areas with no swelling, redness, or edema. Neck: Trachea midline, no thyromegaly or masses palpated, and no cervical lymphadenopathy. Supple, full range of motion without nuchal rigidity, or vertebral point tenderness. No Meningismus. Chest/axilla: Normal chest wall appearance and motion. Nontender with no deformity. No lesions are appreciated. Cardiovascular: Regular rate and rhythm with a normal S1 and S2. No gallops, murmurs, or rubs. Normal PMI, no JVD. No pulse deficits. Respiratory: Lungs have equal breath sounds bilaterally, clear to auscultation and percussion. No rales, rhonchi or wheezes noted. No increased work of breathing, no retractions or nasal flaring. Abdomen/GI: Soft, non-tender, with normal bowel sounds. No distension or tympany. No guarding or rebound. No evidence of tenderness throughout. Back: No spinal tenderness. No costovertebral tenderness. Full range of motion. Skin: Warm, dry with normal turgor. Normal color with no rashes, no lesions, and no evidence of cellulitis. MS/ Extremity: Pulses equal, no cyanosis. Neurovascular intact. Full, normal range of motion. Neuro: Awake and alert, GCS 15, oriented to person, place, time, and situation. Cranial nerves II-XII grossly intact. Motor strength 5/5 in all extremities. Sensory grossly intact. Cerebellar exam normal. Normal gait. 13:33 Psych: Behavior/mood is pleasant, cooperative, Affect is calm, flat, Oriented to person, place, time, Not oriented to only. Situation. Patient has no thoughts/intents to harm self or others. Judgement / Insight is impaired. Delusions/hallucinations are present and described as paranoid about may be hiding people/family may be working against her. 14:57 ECG was reviewed by the Attending Physician. kdr Vital Signs: 10:28 BP 163 / 101; Pulse 119; Resp 20; Temp 98.4; Pulse Ox 100% on R/A; Weight 77.11 kg; em Height 5 ft. 1 in. (154.94 cm); Pain 0/10; 11:16 BP 133 / 86; Pulse 109; Resp 18; Pulse Ox 100% on R/A; em 13:00 BP 130 / 91; Pulse 99; Resp 20; Pulse Ox 97% on R/A; em 10:28 Body Mass Index 32.12 (77.11 kg, 154.94 cm) em MDM: 13:33 Data reviewed: vital signs, nurses notes, lab test result(s). Counseling: I had a kdr detailed discussion with the patient and/or guardian regarding: the historical points, exam findings, and any diagnostic results supporting the discharge/admit diagnosis, lab results, the need to transfer to another facility. 13:39 Patient medically screened. kdr 08/18 11:05 Order name: Acetaminophen; Complete Time: 12:41 em 08/18 11:05 Order name: Basic Metabolic Panel; Complete Time: 12:41 em 08/18 11:05 Order name: CBC with Diff; Complete Time: 12:41 em 08/18 11:05 Order name: ETOH Level; Complete Time: 12:41 em 08/18 11:05 Order name: Hepatic Function; Complete Time: 12:41 em 08/18 11:05 Order name: PT-INR; Complete Time: 12:41 em 08/18 11:05 Order name: Ptt, Activated; Complete Time: 12:41 em 08/18 11:05 Order name: Salicylate; Complete Time: 12:41 em 08/18 11:05 Order name: Urine Drug Screen; Complete Time: 12:41 em 08/18 11:05 Order name: EKG; Complete Time: 11:06 em 08/18 11:05 Order name: EKG - Nurse/Tech; Complete Time: 11: em 08/18 11:05 Order name: IV Saline Lock; Complete Time: 11:15 em 08/18 12:01 Order name: Urine Dipstick--Ancillary (enter results); Complete Time: 12:41 eb 08/18 11:05 Order name: Labs collected and sent; Complete Time: 11: em 08/18 11:05 Order name: Urine Dipstick-Ancillary (obtain specimen); Complete Time: 12:07 em EC:57 Rate is 111 beats/min. Rhythm is regular, Sinus tachycardia with No ectopy. QRS Crane is kdr Normal. OK interval is normal. QRS interval is normal. QT interval is normal. Clinical impression: NSR w/ Non-specific ST/T Changes and Sinus tachycardia. Administered Medications: 11:20 Drug: NS 0.9% 250 ml Route: IV; Rate: bolus; Site: right antecubital; em 15:20 Follow up: Response: No adverse reaction; IV Status: Completed infusion; IV Intake: em 150ml Disposition: 08/18/20 13:39 Transfer ordered to Psych Facility. Diagnosis are Paranoid personality disorder, Delusional disorders. - Reason for transfer: Higher level of care. - Accepting physician is Dr. Nova. - Condition is Fair. - Problem is an ongoing problem. - Symptoms are unchanged. Signatures: Dispatcher [employer] EDMS Sonido Soriano MD MD kdr Munoz, Edgar RN RN em Corrections: (The following items were deleted from the chart) 15:28 13:39 08/18/2020 13:39 Transfer ordered to Psych Facility. Diagnosis is Paranoid em personality disorder; Delusional disorders. Reason for transfer: Higher level of care. Accepting physician is Dr. Nova. Condition is Fair. Problem is an ongoing problem. Symptoms are unchanged. kdr
[2020-08-18 15:46] VITALS: TEMP 98.4
[2020-08-18 15:56] VITALS: BP 130/91; O2SAT 97
== END 2020-08-18 15:28 ==
LOC: ER 10:16
DX: F60.0 Paranoid personality disorder (principal); F22 Delusional disorders; F17.210 Nicotine dependence, cigarettes, uncomplicated; Z85.118 Personal history of other malignant neoplasm of bronchus and lung
CPT/HCPCS: 96365; 93005; 85025; 80048; 36415; 80320; 80329 ×2; 85610; 80076; 80307 ×8; 85730; 81003; 99285; 96366; J7050